=== PATIENT | male | born 1950 | race Caucasian/White ===

== ENCOUNTER 2017-01-26 18:24 | Inpatient (IN) | payer MEDICARE ==
[2017-01-26] MEDS ORDERED: KETOROLAC 30 MG/ML 1 ML VIAL IVP STA (18:54)
--- NOTE | 2017-01-26 18:58 | ED ---
General Adult HPI - General Chief complaint: Abdominal Pain Stated complaint: URQ pain Time Seen by Provider: 01/26/17 18:43 Source: patient Mode of arrival: ambulatory Limitations: no limitations - History of Present Illness Initial comments: This is a 66-year-old male with a history of gout and hypothyroidism and hyperlipidemia who presents here department for right-sided chest pain. He states is located right under his right pectoral area. He states it started when he woke up this morning. It has been constant and aching. It is made worse when he lays down or reclines. It's better when he sits up. Nothing else seems to make it better or worse. He has not tried anything for the pain area he denies any associated shortness of breath. The pain is not pleuritic in nature. No tearing. He does state that about a month ago he was treated with steroids and antibiotics for a chronic sinusitis that took quite some time to resolve. Otherwise denies any history of CAD or heart attack. Admits to abdominal bloating however no nausea or vomiting. No abdominal pain. No other complaint. - Related Data Home Medications Medication Instructions Recorded Confirmed Allopurinol [Zyloprim] 300 mg PO DAILY 01/02/16 01/26/17 Cholecalciferol [Vitamin D3] 5,000 unit PO Q7D 01/26/17 01/26/17 Levothyroxine Sodium [Synthroid] 25 mcg PO Q48H 01/26/17 01/26/17 Loratadine-Pseudoeph 5-120 mg 1 tab PO HS 01/26/17 01/26/17 [Claritin-D 12 HR] Metoprolol Tartrate [Lopressor] 25 mg PO BID 01/26/17 01/26/17 Multivitamins, Thera [Multivitamin 1 tab PO DAILY 01/26/17 01/26/17 (formulary)] Allergies Allergy/AdvReac Type Severity Reaction Status Date / Time Penicillins Allergy Unknown Verified 01/26/17 18:45 Childhood Sulfa (Sulfonamide Allergy Rash/Hives Verified 01/26/17 18:45 Antibiotics) Review of Systems ROS Statement: Those systems with pertinent positive or pertinent negative responses have been documented in the HPI. ROS Other: All systems not noted in ROS Statement are negative. Past Medical History Past Medical History: Deep Vein Thrombosis (DVT), Hyperlipidemia, Hypertension Additional Past Medical History / Comment(s): arrythmia, C diff History of Any Multi-Drug Resistant Organisms: None Reported Past Surgical History: Orthopedic Surgery, Tonsillectomy Additional Past Surgical History / Comment(s): left arthroscopy knee. quad tendon surgery right knee Past Psychological History: No Psychological Hx Reported Smoking Status: Former smoker Past Alcohol Use History: None Reported Past Drug Use History: None Reported General Exam - General Exam Comments Initial Comments: Constitutional: Awake alert Appears comfortable Head: Normocephalic atraumatic Eyes: no conjunctival injection No scleral icterus EOMI Neck: No JVD Supple Heart: Regular rate rhythm normal S1-S2 no murmurs Lungs: Clear to auscultation bilaterally No wheezing No rales, no tenderness to palpation along the chest wall Abdomen: Soft nondistended nontender Extremities: Non edematous DP pulses intact Radial pulses intact Neuro: A&Ox3 No focal neurologic deficits Psych: Appropriate mood and affect Limitations: no limitations Course Vital Signs 01/26/17 18:30 Temperature 97.8 F Pulse Rate 90 Respiratory 20 Rate Blood Pressure 138/93 O2 Sat by Pulse 98 Oximetry Medical Decision Making - Medical Decision Making This is a 58-year-old male presents emergency department for right-sided chest pain. He was found to have bilateral pulmonary embolisms. He does have a history of DVT however is not anticoagulated. The patient started on heparin drip. I put in for lower extremity Dopplers. I spoke with Dr. Liang who accepts the admission and would like Dr. Simeon on the case. The patient will be admitted. He is currently hemodynamically stable. No tachycardia or hypoxia. I feel that he is stable for the floor. We'll admit to the hospital. - Lab Data Result diagrams: 01/26/17 19:10 01/26/17 19:10 Lab Results 01/26/17 01/26/17 01/26/17 Range/Units 19:10 19:10 19:10 WBC (3.8-10.6) k/uL RBC (4.30-5.90) m/uL Hgb (13.0-17.5) gm/dL Hct (39.0-53.0) % MCV (80.0-100.0) fL MCH (25.0-35.0) pg MCHC (31.0-37.0) g/dL RDW (11.5-15.5) % Plt Count (150-450) k/uL Neutrophils % % Lymphocytes % % Monocytes % % Eosinophils % % Basophils % % Neutrophils # (1.3-7.7) k/uL Lymphocytes # (1.0-4.8) k/uL Monocytes # (0-1.0) k/uL Eosinophils # (0-0.7) k/uL Basophils # (0-0.2) k/uL PT 10.3 (9.0-12.0) sec INR 1.0 (<1.2) APTT 23.3 (22.0-30.0) sec D-Dimer 3.89 H (<0.60) mg/L FEU Sodium 141 (137-145) mmol/L Potassium 4.3 (3.5-5.1) mmol/L Chloride 101 (98-107) mmol/L Carbon Dioxide 28 (22-30) mmol/L Anion Gap 12 mmol/L BUN 18 (9-20) mg/dL Creatinine 0.90 (0.66-1.25) mg/dL Est GFR (MDRD) Af Amer >60 (>60 ml/min/1.73 sqM) Est GFR (MDRD) Non-Af >60 (>60 ml/min/1.73 sqM) Glucose 143 H (74-99) mg/dL Calcium 9.6 (8.4-10.2) mg/dL Total Bilirubin 0.7 (0.2-1.3) mg/dL AST 31 (17-59) U/L ALT 50 (21-72) U/L Alkaline Phosphatase 133 H (38-126) U/L CK-MB (CK-2) 0.9 (0.0-2.4) ng/mL Troponin I <0.012 (0.000-0.034) ng/mL Total Protein 7.1 (6.3-8.2) g/dL Albumin 3.9 (3.5-5.0) g/dL Amylase 93 (30-110) U/L Lipase 330 H (23-300) U/L 01/26/17 Range/Units 19:10 WBC 12.0 H (3.8-10.6) k/uL RBC 4.90 (4.30-5.90) m/uL Hgb 15.4 (13.0-17.5) gm/dL Hct 48.0 (39.0-53.0) % MCV 98.0 (80.0-100.0) fL MCH 31.5 (25.0-35.0) pg MCHC 32.1 (31.0-37.0) g/dL RDW 13.7 (11.5-15.5) % Plt Count 297 (150-450) k/uL Neutrophils % 75 % Lymphocytes % 14 % Monocytes % 5 % Eosinophils % 3 % Basophils % 1 % Neutrophils # 9.0 H (1.3-7.7) k/uL Lymphocytes # 1.7 (1.0-4.8) k/uL Monocytes # 0.6 (0-1.0) k/uL Eosinophils # 0.4 (0-0.7) k/uL Basophils # 0.1 (0-0.2) k/uL PT (9.0-12.0) sec INR (<1.2) APTT (22.0-30.0) sec D-Dimer (<0.60) mg/L FEU Sodium (137-145) mmol/L Potassium (3.5-5.1) mmol/L Chloride (98-107) mmol/L Carbon Dioxide (22-30) mmol/L Anion Gap mmol/L BUN (9-20) mg/dL Creatinine (0.66-1.25) mg/dL Est GFR (MDRD) Af Amer (>60 ml/min/1.73 sqM) Est GFR (MDRD) Non-Af (>60 ml/min/1.73 sqM) Glucose (74-99) mg/dL Calcium (8.4-10.2) mg/dL Total Bilirubin (0.2-1.3) mg/dL AST (17-59) U/L ALT (21-72) U/L Alkaline Phosphatase (38-126) U/L CK-MB (CK-2) (0.0-2.4) ng/mL Troponin I (0.000-0.034) ng/mL Total Protein (6.3-8.2) g/dL Albumin (3.5-5.0) g/dL Amylase (30-110) U/L Lipase (23-300) U/L Disposition Clinical Impression: Pulmonary embolism Disposition: ADMITTED IP TO THIS HOSP Condition: Stable
[2017-01-26 19:26] LABS: Basophils # (A) 0.1 k/uL (0-0.2); Basophils % (A) 1 %; CH 31.3; CHCM 32.1; Eosinophils # (A) 0.4 k/uL (0-0.7); Eosinophils % (A) 3 %; HGB 15.4 gm/dL (13.0-17.5); Luc # (Auto) 0.25; Luc % (Auto) 2; Lymphocytes # (A) 1.7 k/uL (1.0-4.8); Lymphocytes % (A) 14 %; MCH 31.5 pg (25.0-35.0); MCHC 32.1 g/dL (31.0-37.0); Mean Platelet Volume 7.3; Monocytes # (A) 0.6 k/uL (0-1.0); Monocytes % (A) 5 %; Neutrophils % (A) 75 %; RDW 13.7 % (11.5-15.5); WBC (Perox) 11.75
[2017-01-26 19:37] LABS: ALT 50 U/L (21-72); AST 31 U/L (17-59); Alkaline Phosphatase 133 U/L (38-126); Amylase 93 U/L (30-110); Anion Gap 12 mmol/L; Blood Urea Nitrogen 18 mg/dL (9-20); Calcium 9.6 mg/dL (8.4-10.2); Carbon Dioxide 28 mmol/L (22-30); Chloride 101 mmol/L (98-107); Glucose 143 mg/dL (74-99); Non-African American GFR(MDRD) >60 (>60 ml/min/1.73 sqM); Potassium 4.3 mmol/L (3.5-5.1); Sodium 141 mmol/L (137-145); Total Bilirubin 0.7 mg/dL (0.2-1.3); Total Protein 7.1 g/dL (6.3-8.2)
--- NOTE | 2017-01-26 19:38 | XR ---
EXAMINATION TYPE: XR chest 2V DATE OF EXAM: 01/26/2017 COMPARISON: NONE HISTORY: Chest pain TECHNIQUE: Frontal and lateral views of the chest are obtained. FINDINGS: Heart and mediastinum are normal. Lungs are clear. Diaphragm is normal. There is minor spu rring in the thoracic spine. IMPRESSION: No active cardiopulmonary disease.
[2017-01-26 19:53] LABS: Partial Thromboplastin Time 23.3 sec (22.0-30.0); Prothrombin Time 10.3 sec (9.0-12.0)
[2017-01-26] MEDS ORDERED: RX INFO: IV CONTRAST WAS GIVEN 1 EACH MISC MISCELLANE PRN (19:56)
[2017-01-26 20:05] LABS: Creatine Kinase MB 0.9 ng/mL (0.0-2.4); Troponin I <0.012 ng/mL (0.000-0.034)
[2017-01-26] MEDS ORDERED: HEPARIN SODIUM,PORCINE 5,000 UNIT/ML 1 ML VIAL IV ONE (20:37)
--- NOTE | 2017-01-26 20:38 | CT ---
EXAMINATION TYPE: CT angio chest DATE OF EXAM: 01/26/2017 8:26 PM COMPARISON: NONE HISTORY: RUQ pain. CT DLP: 886.2 mGycm Automated exposure control for dose reduction was used. CONTRAST: CTA scan of the thorax is performed with IV Contrast, patient injected with 75 mL of Omnipaque 350, p ulmonary embolism protocol. There are 3-D post processed images.. FINDINGS: The lungs are clear of consolidation. There is no evidence of a pulmonary mass. There is no evidence of aortic aneurysm or dissection. There is spurring in the thoracic spine. There is no evidence of pl eural effusion. There are small linear density at the left posterior lung base. There are small filling defects in both lower lobe pulmonary arteries. IMPRESSION: THERE ARE BILATERAL MULTIPLE SMALL LOWER LOBE PULMONARY EMBOLI. MINIMAL SUBSEGMENTAL ATELECTASIS IN THE LEFT LOWER LOBE. THIS EXAM WAS DISCUSSED WITH ER PHYSICIAN AT 8:30 PM.
[2017-01-26] MEDS ORDERED: NALOXONE 0.4 MG/ML 1 ML VIAL IV PRN (20:43)
[2017-01-26] MEDS ORDERED: ACETAMINOPHEN TAB 325 MG TAB PO PRN (20:43)
[2017-01-26] MEDS ORDERED: HEPARIN SODIUM,PORCINE/D5W PMX 25,000 UNIT in DEXTROSE/WATER 1 500ML.BAG IV SCH (20:45)
[2017-01-26] MEDS ORDERED: CHOLECALCIFEROL 1,000 UNIT TAB PO SCH (21:00)
[2017-01-26] MEDS ORDERED: LORATADINE-PSEUDOEPH 5-120 MG 1 EACH TAB.ER.12H PO SCH (21:00)
[2017-01-26] MEDS: METOPROLOL TARTRATE 25 MG TAB PO SCH (21:40)
[2017-01-27] MEDS ORDERED: HEPARIN SODIUM,PORCINE 5,000 UNIT/ML 1 ML VIAL IV STA (03:11)
[2017-01-27 07:37] VITALS: RESP 16
--- NOTE | 2017-01-27 08:34 | US ---
EXAMINATION TYPE: US venous doppler duplex LE DATE OF EXAM: 01/27/2017 8:18 AM COMPARISON: US 2016 & 2014 CLINICAL HISTORY: PE. PE, history of right leg DVT SIDE PERFORMED: Bilateral TECHNIQUE: The lower extremity deep venous system is examined utilizing real time linear array sonog lily with graded compression, doppler sonography and color-flow sonography. VESSELS IMAGED: External Iliac Vein (EIV) Common Femoral Vein Deep Femoral Vein Greater Saphenous Vein * Femoral Vein Popliteal Vein Small Saphenous Vein * Proximal Calf Veins (* superficial vessels) Right Leg: Appears negative for DVT Left Leg: Appears negative for DVT IMPRESSION: 1. No diagnostic evidence of DVT.
[2017-01-27] MEDS: METOPROLOL TARTRATE 25 MG TAB PO SCH (08:39)
[2017-01-27] MEDS ORDERED: ALLOPURINOL 300 MG TAB PO SCH (09:00)
[2017-01-27] MEDS ORDERED: RIVAROXABAN 15 MG TAB PO SCH (11:30)
--- NOTE | 2017-01-27 11:52 | P.HPIM ---
History of Present Illness 60-year-old male with history of DVT in the past couple times, came in with complaints of chest pain pleuritic in nature patient underwent CT angios the chest which did show bilateral pulmonary embolism without any DVT in the bilateral lower limbs. Patient was started on heparin was admitted. Patient the past did try Xarelto, patient will be given same prescription patient denied any short of breath and patient denied any tachycardia patient is on metoprolol as a long-term medication. Patient in the past had DVT after surgeries. Patient about couple months ago had some kind of vein surgery. Patient has been ablating lately and the patient's symptoms started yesterday. Patient is up-to-date with his cancer screening procedures. We will verify his insurance regarding new anticoagulant medication in and the patient is approved for those patient will be discharged on your medications meantime will start him on new anticoagulants and this can you heparin if patient vitals are stable upon ambulation and patient doesn't become tachycardic without any chest pain or any other symptoms patient will be discharged today on new anticoagulants. Review of Systems REVIEW OF SYSTEMS: CONSTITUTIONAL: No fever, no malaise, no fatigue. HEENT: No recent visual problems or hearing problems. Denied any sore throat. CARDIOVASCULAR: No orthopnea, PND, no palpitations, no syncope. PULMONARY: No shortness of breath, no cough, no hemoptysis. GASTROINTESTINAL: No diarrhea, no nausea, no vomiting, no abdominal pain. Normoactive bowel sounds. NEUROLOGICAL: No headaches, no weakness, no numbness. HEMATOLOGICAL: Denies any bleeding or petechiae. GENITOURINARY: Denies any burning micturition, frequency, or urgency. MUSCULOSKELETAL/RHEUMATOLOGICAL: Denies any joint pain, swelling, or any muscle pain. ENDOCRINE: Denies any polyuria or polydipsia. The rest of the 14-point review of systems is negative. Past Medical History Past Medical History: Deep Vein Thrombosis (DVT), Hyperlipidemia, Hypertension Additional Past Medical History / Comment(s): arrythmia; C diff 2014, not hospital acquired History of Any Multi-Drug Resistant Organisms: None Reported Past Surgical History: Orthopedic Surgery, Tonsillectomy Additional Past Surgical History / Comment(s): left arthroscopy knee. quad tendon surgery right knee Past Anesthesia/Blood Transfusion Reactions: No Reported Reaction Past Psychological History: No Psychological Hx Reported Smoking Status: Former smoker Past Alcohol Use History: None Reported Past Drug Use History: None Reported - Past Family History Father Family Medical History: Renal Disease Additional Family Medical History / Comment(s): Father from kidney failure , lung problems Mother Family Medical History: Myocardial Infarction ([place]) Additional Family Medical History / Comment(s): Mother and siblings had heart attacks, mom from Alzheimers complications Medications and Allergies Home Medications Medication Instructions Recorded Confirmed Type Allopurinol [Zyloprim] 300 mg PO DAILY 01/02/16 01/26/17 History Cholecalciferol [Vitamin D3] 5,000 unit PO Q7D 01/26/17 01/26/17 History Levothyroxine Sodium [Synthroid] 25 mcg PO Q48H 01/26/17 01/26/17 History Loratadine-Pseudoeph 5-120 mg 1 tab PO HS 01/26/17 01/26/17 History [Claritin-D 12 HR] Metoprolol Tartrate [Lopressor] 25 mg PO BID 01/26/17 01/26/17 History Multivitamins, Thera [Multivitamin 1 tab PO DAILY 01/26/17 01/26/17 History (formulary)] Rivaroxaban [Xarelto] 15 mg PO BID #42 tab 01/27/17 Rx Allergies Allergy/AdvReac Type Severity Reaction Status Date / Time Penicillins Allergy Unknown Verified 01/26/17 18:45 Childhood Sulfa (Sulfonamide Allergy Rash/Hives Verified 01/26/17 18:45 Antibiotics) Physical Exam Vitals: Vital Signs Temp Pulse Pulse Resp BP BP BP 01/27/17 07:00 97.2 F L 82 16 132/70 01/26/17 23:00 96.4 F L 74 18 154/67 01/26/17 22:13 98.1 F 86 18 163/75 01/26/17 18:30 97.8 F 90 20 138/93 Pulse Ox 01/27/17 07:00 93 L 01/26/17 23:00 93 L 01/26/17 22:13 96 01/26/17 18:30 98 Intake and Output 01/26/17 01/27/17 01/27/17 22:59 06:59 14:59 Intake Total 555.377 190.148 Output Total 350 Balance 205.377 190.148 Intake: Intake, IV Titration 105.377 190.148 Amount Heparin Sodium,Porcine/ 105.377 190.148 D5w Pmx 25,000 unit In Dextrose/Water 1 500ml. bag @ 7.6 UNITS/KG/HR 20. 2 mls/hr IV .Q24H [facility] Rx# :[id number] Oral 450 Output: Urine 350 Other: Voiding Method Toilet Bedside Commode Urinal # Voids 0 # Bowel Movements 0 Weight 132.903 kg PHYSICAL EXAMINATION: GENERAL: The patient is alert and oriented x3, not in any acute distress. Obese HEENT: Pupils are round and equally reacting to light. EOMI. No scleral icterus. No conjunctival pallor. Normocephalic, atraumatic. No pharyngeal erythema. No thyromegaly. CARDIOVASCULAR: S1 and S2 present. No murmurs, rubs, or gallops. PULMONARY: Chest is clear to auscultation, no wheezing or crackles. ABDOMEN: Soft, nontender, nondistended, normoactive bowel sounds. No palpable organomegaly. MUSCULOSKELETAL: No joint swelling or deformity. EXTREMITIES: No cyanosis, clubbing, or pedal edema. NEUROLOGICAL: Gross neurological examination did not reveal any focal deficits. SKIN: No rashes. Results CBC & Chem 7: 01/26/17 19:10 01/26/17 19:10 Labs: Abnormal Lab Results - Last 24 Hours (Table) 01/26/17 01/26/17 01/26/17 Range/Units 19:10 19:10 19:10 WBC 12.0 H (3.8-10.6) k/uL Neutrophils # 9.0 H (1.3-7.7) k/uL APTT (22.0-30.0) sec D-Dimer 3.89 H (<0.60) mg/L FEU Glucose 143 H (74-99) mg/dL Alkaline Phosphatase 133 H (38-126) U/L Lipase 330 H (23-300) U/L 01/27/17 01/27/17 Range/Units 02:22 08:35 WBC (3.8-10.6) k/uL Neutrophils # (1.3-7.7) k/uL APTT 35.0 H 55.4 H (22.0-30.0) sec D-Dimer (<0.60) mg/L FEU Glucose (74-99) mg/dL Alkaline Phosphatase (38-126) U/L Lipase (23-300) U/L Thrombosis Risk Factor Assmnt - Choose All That Apply Any of the Below Risk Factors Present?: Yes Each Factor Represents 1 point: Obesity (BMI >25), Swollen legs (current) Other Risk Factors: Yes Each Risk Factor Represents 2 Points: Age 61-74 years Each Risk Factor Represents 3 Points: History of DVT/PE Thrombosis Risk Factor Assessment Total Risk Factor Score: 7 Thrombosis Risk Factor Assessment Level: High Risk Assessment and Plan Plan: #1 bilateral pulmonary embolism: Management as mentioned in the history itself. Patient need to be on lifelong anticoagulation considering his third PE and no clear-cut precipitating fitting factor except for obesity #2 morbid obesity contributing to his PE. #3 hyperlipidemia #4 Hypertension
--- NOTE | 2017-01-27 11:53 | P.DS ---
Providers Date of admission: 01/26/17 20:46 Attending physician: Misael Liang Consults: 01/26/17 20:37 Consult Physician Routine Consulting Provider: Loraine Dickerson Consult Reason/Comments: PE Do you want consulting provider notified?: Yes, Notify in am Primary care physician: Tahmina Calvo [place] [facility] Course: Please refer to my HPI Patient Condition at Discharge: Stable Plan - Discharge Summary New Discharge Prescriptions: New Rivaroxaban [Xarelto] 15 mg PO BID #42 tab No Action Allopurinol [Zyloprim] 300 mg PO DAILY Multivitamins, Thera [Multivitamin (formulary)] 1 tab PO DAILY Levothyroxine Sodium [Synthroid] 25 mcg PO Q48H Metoprolol Tartrate [Lopressor] 25 mg PO BID Loratadine-Pseudoeph 5-120 mg [Claritin-D 12 HR] 1 tab PO HS Cholecalciferol [Vitamin D3] 5,000 unit PO Q7D Discharge Medication List Allopurinol [Zyloprim] 300 mg PO DAILY 01/02/16 [History] Cholecalciferol [Vitamin D3] 5,000 unit PO Q7D 01/26/17 [History] Levothyroxine Sodium [Synthroid] 25 mcg PO Q48H 01/26/17 [History] Loratadine-Pseudoeph 5-120 mg [Claritin-D 12 HR] 1 tab PO HS 01/26/17 [History] Metoprolol Tartrate [Lopressor] 25 mg PO BID 01/26/17 [History] Multivitamins, Thera [Multivitamin (formulary)] 1 tab PO DAILY 01/26/17 [History ] Rivaroxaban [Xarelto] 15 mg PO BID #42 tab 01/27/17 [Rx] Follow up Appointment(s)/Referral(s): Tahmina Calvo MD [Primary Care Provider] - 3 Days Discharge Disposition: HOME SELF-CARE
[2017-01-27] MEDS ORDERED: MULTIVITAMINS, THERA 1 EACH TAB PO SCH (12:00)
[2017-01-27 15:00] VITALS: BP 145/76; PULSE 75; TEMP 97.4
--- NOTE | 2017-01-27 15:22 | P.CNPUL ---
History of Present Illness Consult date: 01/27/17 Requesting physician: Alton Judge Reason for consult: chest pain Chief complaint: Right sided chest pain, pulmonary embolism History of present illness: This is a 66-year-old white male that presented to the emergency department last night with complaints of right-sided chest pain worse when lying down. His symptoms started sometime during the day yesterday. She denies having increased shortness of breath, chest congestion, wheezing or hemoptysis. His pain was very localized under his right pectoral area. It was improved with sitting upright. Denies worsening of his pain with inspiration. He reports past medical history of DVTs twice in the past for which he was treated with Xarelto, however currently not on any form of anticoagulation. His previous episodes of DVT and then after surgeries. Most recently patient had some type of vein ablation for chronic venous insufficiency with a specialist from [place]. CTA chest from 01/26/2017 showed evidence of multiple bilateral small lower lobe pulmonary emboli and minimal subsegmental atelectasis in the left lower lobe. Venous Doppler study from 01/27/2017 is negative for evidence. Patient is alert, awake, in no apparent distress. Lung sounds are clear, diminished at the bases. Hemodynamically stable, on room air maintaining saturations between 93-96%. Patient had been started on heparin drip. Patient can be started on Xarelto, and discharged home. He was counseled about having to stay on Xarelto for the rest of his life related to recurrent thromboembolic events. Review of Systems Constitutional: Denies chills, Denies fever Eyes: denies blurred vision, denies pain Ears, nose, mouth and throat: Denies headache, Denies sore throat Cardiovascular: Denies chest pain, Denies shortness of breath Respiratory: Reports pain, Denies cough Gastrointestinal: Denies abdominal pain, Denies diarrhea, Denies nausea, Denies vomiting Musculoskeletal: Denies myalgias Integumentary: Denies pruritus, Denies rash Neurological: Denies numbness, Denies weakness Psychiatric: Denies anxiety, Denies depression Endocrine: Denies fatigue, Denies weight change Past Medical History Past Medical History: No Reported History, Deep Vein Thrombosis (DVT), Hyperlipidemia, Hypertension Additional Past Medical History / Comment(s): arrythmia; C diff 2014, not hospital acquired History of Any Multi-Drug Resistant Organisms: None Reported Past Surgical History: Orthopedic Surgery, Tonsillectomy Additional Past Surgical History / Comment(s): left arthroscopy knee. quad tendon surgery right knee Past Anesthesia/Blood Transfusion Reactions: No Reported Reaction Past Psychological History: No Psychological Hx Reported Smoking Status: Former smoker Past Alcohol Use History: None Reported Past Drug Use History: None Reported - Past Family History Father Family Medical History: Renal Disease Additional Family Medical History / Comment(s): Father from kidney failure , lung problems Mother Family Medical History: Myocardial Infarction ([place]) Additional Family Medical History / Comment(s): Mother and siblings had heart attacks, mom from Alzheimers complications Medications and Allergies Home Medications Medication Instructions Recorded Confirmed Type Allopurinol [Zyloprim] 300 mg PO DAILY 01/02/16 01/26/17 History Cholecalciferol [Vitamin D3] 5,000 unit PO Q7D 01/26/17 01/26/17 History Levothyroxine Sodium [Synthroid] 25 mcg PO Q48H 01/26/17 01/26/17 History Loratadine-Pseudoeph 5-120 mg 1 tab PO HS 01/26/17 01/26/17 History [Claritin-D 12 HR] Metoprolol Tartrate [Lopressor] 25 mg PO BID 01/26/17 01/26/17 History Multivitamins, Thera [Multivitamin 1 tab PO DAILY 01/26/17 01/26/17 History (formulary)] Rivaroxaban [Xarelto] 15 mg PO BID #42 tab 01/27/17 Rx Allergies Allergy/AdvReac Type Severity Reaction Status Date / Time Penicillins Allergy Unknown Verified 01/26/17 18:45 Childhood Sulfa (Sulfonamide Allergy Rash/Hives Verified 01/26/17 18:45 Antibiotics) Physical Exam Vitals: Vital Signs Temp Pulse Pulse Resp BP BP BP 01/27/17 07:00 97.2 F L 82 16 132/70 01/26/17 23:00 96.4 F L 74 18 154/67 01/26/17 22:13 98.1 F 86 18 163/75 01/26/17 18:30 97.8 F 90 20 138/93 Pulse Ox 01/27/17 07:00 93 L 01/26/17 23:00 93 L 09/28/17 22:13 96 01/26/17 18:30 98 Intake and Output 01/26/17 01/27/17 01/27/17 22:59 06:59 14:59 Intake Total 555.377 190.148 Output Total 350 Balance 205.377 190.148 Intake: Intake, IV Titration 105.377 190.148 Amount Heparin Sodium,Porcine/ 105.377 190.148 D5w Pmx 25,000 unit In Dextrose/Water 1 500ml. bag @ 7.6 UNITS/KG/HR 20. 2 mls/hr IV .Q24H [facility] Rx# :[id number] Oral 450 Output: Urine 350 Other: Voiding Method Toilet Bedside Commode Urinal # Voids 0 # Bowel Movements 0 Weight 132.903 kg - Constitutional General appearance: cooperative, no acute distress, obese - EENT Eyes: EOMI, PERRLA, normal appearance ENT: NA/AT, normal oropharynx - Neck Neck: no lymphadenopathy Carotids: bilateral: upstroke normal Thyroid: bilateral: normal size - Respiratory Respiratory: bilateral: diminished - Cardiovascular Rhythm: regular Heart sounds: normal: S1, S2 leg Peripheral Edema: right: 2+, left: 1+ dorsalis pedis Peripheral Pulses: bilateral: Normal radial pulse Peripheral Pulses: bilateral: Normal - Gastrointestinal General gastrointestinal: no organomegaly, soft, no tenderness - Integumentary Integumentary: normal turgor - Neurologic Neurologic: CNII-XII intact - Musculoskeletal Musculoskeletal: gait normal, strength equal bilaterally - Psychiatric Psychiatric: A&O x's 3, appropriate affect, intact judgment & insight Results - Laboratory Findings CBC and BMP: 01/26/17 19:10 01/26/17 19:10 PT/INR, D-dimer PT 10.3 sec (9.0-12.0) 01/26/17 19:10 INR 1.0 (<1.2) 01/26/17 19:10 D-Dimer 3.89 mg/L FEU (<0.60) H 01/26/17 19:10 Abnormal lab findings: Abnormal Labs 01/26/17 01/26/17 01/26/17 19:10 19:10 19:10 WBC 12.0 H Neutrophils # 9.0 H APTT D-Dimer 3.89 H Glucose 143 H Alkaline Phosphatase 133 H Lipase 330 H 01/27/17 01/27/17 02:22 08:35 WBC Neutrophils # APTT 35.0 H 55.4 H D-Dimer Glucose Alkaline Phosphatase Lipase - Diagnostic Findings Chest x-ray: report reviewed CT scan - chest: report reviewed U/S of Legs: report reviewed Assessment and Plan Plan: Assessment: #1. Acute bilateral pulmonary embolism. #2. History of DVTs 2 in the past after surgical procedures, had been on Xarelto #3. Morbid obesity. #4. Chronic venous insufficiency, history of venous ablation surgery #5. #5. Hyperlipidemia #6. Hypertension #7. Nicotine dependence currently in remission #8. History of arrhythmia #9. History of C. diff, not hospital-acquired #10. History of left knee arthroscopy Plan: We'll check with discharge planning whether patient's insurance will cover Xarelto. Heparin drip can be discontinued once the Xarelto started. Patient was explained the need for lifelong anticoagulation in view of recurrent episodes of thromboembolic events. Patient may be discharged home today or tomorrow. Follow-up with Dr. Dickerson in the office in one week. I performed a history & physical examination of the patient and discussed their management with my nurse practitioner, Georgia Jaimes. I reviewed the nurse practitioner's note and agree with the documented findings and plan of care.
[2017-01-28] MEDS ORDERED: LEVOTHYROXINE 25 MCG TAB PO SCH (06:30)
== END 2017-01-27 15:03 | disposition home or self-care (01) | DRG 176 ==
LOC: EC 18:24 → 4MS4W 20:46
PROVIDERS: ADMIT Hospitalist; ATTEND Hospitalist
DX: I26.99 Other pulmonary embolism without acute cor pulmonale (principal); J98.11 Atelectasis; E66.01 Morbid (severe) obesity due to excess calories; I10 Essential (primary) hypertension; E03.9 Hypothyroidism, unspecified; E78.5 Hyperlipidemia, unspecified; I87.2 Venous insufficiency (chronic) (peripheral); M10.9 Gout, unspecified; F17.201 Nicotine dependence, unspecified, in remission; Z79.01 Long term (current) use of anticoagulants; Z79.899 Other long term (current) drug therapy; Z88.0 Allergy status to penicillin; Z88.2 Allergy status to sulfonamides; Z86.718 Personal history of other venous thrombosis and embolism; Z82.49 Family history of ischemic heart disease and other diseases of the circulatory system
CPT/HCPCS: 36415; 71020; 71275; 80053; 82150; 82553; 83690; 84484; 85025; 85379; 85610; 85730; 93005; 93970; 96374; 96375; 99285

== ENCOUNTER 2017-08-09 21:31 | Emergency (ER) | payer MEDICARE ==
[2017-08-09 21:37] VITALS: RESP 18
[2017-08-09] MEDS ORDERED: diphenhydrAMINE 50 MG/ML 1 ML VIAL IVP STA (23:02)
[2017-08-09] MEDS ORDERED: SODIUM CHLORIDE 0.9% 1,000 ML IV STA (23:02)
[2017-08-09] MEDS ORDERED: METOCLOPRAMIDE 5 MG/ML 2 ML VIAL IVP STA (23:02)
[2017-08-09] MEDS ORDERED: RX INFO: IV CONTRAST WAS GIVEN 1 EACH MISC MISCELLANE PRN (23:02)
[2017-08-09 23:31] LABS: Basophils # (A) 0.1 k/uL (0-0.2); Basophils % (A) 1 %; Eosinophils # (A) 0.3 k/uL (0-0.7); Eosinophils % (A) 4 %; HCT 45.7 % (39.0-53.0); HGB 14.9 gm/dL (13.0-17.5); Lymphocytes # (A) 1.9 k/uL (1.0-4.8); Lymphocytes % (A) 22 %; MCH 30.8 pg (25.0-35.0); MCHC 32.5 g/dL (31.0-37.0); MCV 94.6 fL (80.0-100.0); Mean Platelet Volume 7.6; Monocytes # (A) 0.6 k/uL (0-1.0); Monocytes % (A) 7 %; Neutrophils # (A) 5.5 k/uL (1.3-7.7); Neutrophils % (A) 65 %; Platelet Count 303 k/uL (150-450); RBC 4.83 m/uL (4.30-5.90); RDW 13.4 % (11.5-15.5); WBC 8.5 k/uL (3.8-10.6)
[2017-08-09 23:40] LABS: ALT 64 U/L (21-72); AST 52 U/L (17-59); Albumin 3.8 g/dL (3.5-5.0); Alkaline Phosphatase 122 U/L (38-126); Anion Gap 13 mmol/L; Blood Urea Nitrogen 24 mg/dL (9-20); Calcium 9.1 mg/dL (8.4-10.2); Carbon Dioxide 25 mmol/L (22-30); Chloride 105 mmol/L (98-107); Glucose 222 mg/dL (74-99); Potassium 4.1 mmol/L (3.5-5.1); Sodium 143 mmol/L (137-145); Total Bilirubin 0.4 mg/dL (0.2-1.3); Total Protein 6.9 g/dL (6.3-8.2)
--- NOTE | 2017-08-09 23:51 | ED ---
General Adult HPI - General Chief complaint: Headache Stated complaint: rt side head pain Time Seen by Provider: 08/09/17 22:21 Source: patient, RN notes reviewed Mode of arrival: ambulatory Limitations: no limitations - History of Present Illness Initial comments: This is a 67-year-old male who presents to the emergency department with chief complaint of right sided facial and head pain. Patient states that the right- sided head pain began yesterday. He presented to his dentist this morning as he thought the pain stemmed from dental issues. His dentist evaluated him and performed x-rays. No abnormalities were found. Patient states that the pain is intermittent and sharp in nature. He states that each episode lasts approximately 5 minutes. He states that the majority of the pain is along his right jaw and sometimes radiates to his teeth, right cheek and right eye. He does admit him to having a baseline right-sided headache as well. He states that he has been taking Aleve, his last dose at 8 PM tonight. Denies fever, chills, chest pain, shortness of breath, abdominal pain, nausea or vomiting, constipation or diarrhea, dysuria or hematuria, numbness or tingling, headache or vision changes. - Related Data Home Medications Medication Instructions Recorded Confirmed Allopurinol [Zyloprim] 300 mg PO DAILY 01/02/16 08/09/17 Loratadine-Pseudoeph 5-120 mg 1 tab PO HS 01/26/17 08/09/17 [Claritin-D 12 HR] Metoprolol Tartrate [Lopressor] 25 mg PO BID 01/26/17 08/09/17 Atorvastatin [Lipitor] 40 mg PO HS 08/09/17 08/09/17 Rivaroxaban [Xarelto] 20 mg PO DAILY 08/09/17 08/09/17 Allergies Allergy/AdvReac Type Severity Reaction Status Date / Time Penicillins Allergy Unknown Verified 08/09/17 22:13 Childhood Sulfa (Sulfonamide Allergy Rash/Hives Verified 08/09/17 22:13 Antibiotics) Review of Systems ROS Statement: Those systems with pertinent positive or pertinent negative responses have been documented in the HPI. ROS Other: All systems not noted in ROS Statement are negative. Past Medical History Past Medical History: No Reported History, Deep Vein Thrombosis (DVT), Hyperlipidemia, Hypertension Additional Past Medical History / Comment(s): arrythmia; C diff 2014, not hospital acquired History of Any Multi-Drug Resistant Organisms: None Reported Past Surgical History: Orthopedic Surgery, Tonsillectomy Additional Past Surgical History / Comment(s): left arthroscopy knee. quad tendon surgery right knee Past Anesthesia/Blood Transfusion Reactions: No Reported Reaction Past Psychological History: No Psychological Hx Reported Smoking Status: Former smoker Past Alcohol Use History: None Reported Past Drug Use History: None Reported - Past Family History Father Family Medical History: Renal Disease Additional Family Medical History / Comment(s): Father from kidney failure , lung problems Mother Family Medical History: Myocardial Infarction ([place]) Additional Family Medical History / Comment(s): Mother and siblings had heart attacks, mom from Alzheimers complications General Exam - General Exam Comments Initial Comments: General: Awake and alert, well-developed; in no apparent distress. HEENT: Head atraumatic, normocephalic. Pupils are equal, round and reactive to light. Extraocular movements intact. Oropharynx moist without erythema or exudate. Bilateral TMs are pearly without effusion. No tenderness on palpation of right jawline or temporal region. Neck: Supple. Normal ROM. No lymphadenopathy. No carotid bruits bilaterally. Cardiovascular: Regular rate and rhythm. No murmurs, rubs or gallops. Chest symmetrical. Respiratory: Lungs clear to auscultation bilaterally. No wheezes, rales or rhonchi. Normal respiratory effort with no use of accessory muscles. Musculoskeletal: Normal ROM, no tenderness bilateral upper and lower extremities. Ambulating normally. Skin: [place], warm and dry without rashes or lesions. Neurological: Alert and oriented x3. CN II-XII grossly intact. Speech is fluent and answers are appropriate. No focal neuro deficits. Psychiatric: Normal mood and affect. No overt signs of depression or anxiety noted. Limitations: no limitations Course Vital Signs 08/09/17 08/10/17 21:35 00:34 Temperature 98.9 F 97.8 F Pulse Rate 92 69 Respiratory 18 18 Rate Blood Pressure 174/93 163/82 O2 Sat by Pulse 95 96 Oximetry Medical Decision Making - Medical Decision Making 67-year-old male who presents to the emergency department chief complaint of right-sided head/facial pain since yesterday. Patient reports that the pain is sharp in nature and is intermittent. Pain radiates across the jawline and right side of face. CT brain revealed no acute abnormalities. CT of neck and head reveal no acute abnormalities. No tenderness on palpation of jawline or temporal region. ESR is 26, essentially ruling out temporal arteritis. Patient 's vital signs are stable and he is in no acute distress. This case was discussed with attending physician, Dr. Benton. Patient will be discharged home with a Tylenol with Codeine starter pack for pain. He already has a follow-up appointment scheduled for this morning with his primary care provider. Recommended following up as scheduled. Patient is in agreement with plan and voices understanding. All questions were answered. - Lab Data Result diagrams: 08/09/17 23:14 08/09/17 23:14 Lab Results 08/09/17 08/09/17 Range/Units 23:14 23:14 WBC 8.5 (3.8-10.6) k/uL RBC 4.83 (4.30-5.90) m/uL Hgb 14.9 (13.0-17.5) gm/dL Hct 45.7 (39.0-53.0) % MCV 94.6 (80.0-100.0) fL MCH 30.8 (25.0-35.0) pg MCHC 32.5 (31.0-37.0) g/dL RDW 13.4 (11.5-15.5) % Plt Count 303 (150-450) k/uL Neutrophils % 65 % Lymphocytes % 22 % Monocytes % 7 % Eosinophils % 4 % Basophils % 1 % Neutrophils # 5.5 (1.3-7.7) k/uL Lymphocytes # 1.9 (1.0-4.8) k/uL Monocytes # 0.6 (0-1.0) k/uL Eosinophils # 0.3 (0-0.7) k/uL Basophils # 0.1 (0-0.2) k/uL ESR 26 H (0-15) mm/hr Sodium 143 (137-145) mmol/L Potassium 4.1 (3.5-5.1) mmol/L Chloride 105 (98-107) mmol/L Carbon Dioxide 25 (22-30) mmol/L Anion Gap 13 mmol/L BUN 24 H (9-20) mg/dL Creatinine 0.90 (0.66-1.25) mg/dL Est GFR (CKD-EPI)AfAm >90 (>60 ml/min/1.73 sqM) Est GFR (CKD-EPI)NonAf 87 (>60 ml/min/1.73 sqM) Glucose 222 H (74-99) mg/dL Calcium 9.1 (8.4-10.2) mg/dL Total Bilirubin 0.4 (0.2-1.3) mg/dL AST 52 (17-59) U/L ALT 64 (21-72) U/L Alkaline Phosphatase 122 (38-126) U/L Total Protein 6.9 (6.3-8.2) g/dL Albumin 3.8 (3.5-5.0) g/dL - Radiology Data Radiology results: report reviewed CT brain without contrast impression: Normal head/brain CT. CT angiogram head with IV contrast impression: Normal head CTA. CT angiogram neck with IV contrast impression: Normal neck CTA. Disposition Clinical Impression: Facial neuralgia Disposition: HOME SELF-CARE Condition: Good Instructions: Trigeminal Neuralgia (ED), Acute Headache (ED) Additional Instructions: Please take medications as prescribed. Please follow up with primary care provider within 1-2 days. Return to emergency department if symptoms should worsen or any concerns arise. Referrals: Tahmina Calvo MD [Primary Care Provider] - 1-2 days Time of Disposition: 01:04
[2017-08-10 00:21] LABS: Erythrocyte Sedimentation Rate 26 mm/hr (0-15)
--- NOTE | 2017-08-10 00:31 | CT ---
EXAM: CT Head Without Intravenous Contrast CLINICAL HISTORY: pain TECHNIQUE: Axial computed tomography images of the head/brain without intravenous contrast. CTDI is 60.3 mGy and DLP is 1140.4 mGy-cm. This CT exam was performed using one or more of the following dose reduction techniques: automated exposure control, adjustment of the mA and/or kV according to patient size, and/or use of iterative reconstruction technique. COMPARISON: No relevant prior studies available. FINDINGS: Brain: Unremarkable. No hemorrhage. No significant white matter disease. No edema. Ventricles: Unremarkable. No ventriculomegaly. Bones/joints: Unremarkable. No acute fracture. Soft tissues: Unremarkable. Sinuses: Unremarkable as visualized. No acute sinusitis. Mastoid air cells: Unremarkable as visualized. No mastoid effusion. IMPRESSION: Normal head/brain CT.
[2017-08-10 00:36] VITALS: BP 163/82; PULSE 69; TEMP 97.8
--- NOTE | 2017-08-10 00:41 | CT ---
EXAM: CT Angiography Head With Intravenous Contrast CLINICAL HISTORY: Pain TECHNIQUE: Axial computed tomographic angiography images of the head with intravenous contrast using CT angiography protocol. DLP is 1140.0 mGy- cm. This CT exam was performed using one or more of the following dose reduction techniques: automated exposure control, adjustment of the mA and/or kV according to patient size, and/or use of iterative reconstruction technique. MIP reconstructed images were created and reviewed. Coronal and sagittal reformatted images were created and reviewed. COMPARISON: No relevant prior studies available. FINDINGS: Normal appearance the anterior and posterior circulation. Normal appearance to the left and right middle cerebral artery, left and right anterior cerebral artery as well as left and right posterior cerebral arteries. There appears to be patent bilateral posterior communicating arteries. IMPRESSION: Normal head CTA. EXAM: CT Angiography Neck With Intravenous Contrast CLINICAL HISTORY: Pain TECHNIQUE: Axial computed tomographic angiography images of the neck with intravenous contrast using CT angiography protocol. DLP is 1140.0 mGy- cm. This CT exam was performed using one or more of the following dose reduction techniques: automated exposure control, adjustment of the mA and/or kV according to patient size, and/or use of iterative reconstruction technique. MIP reconstructed images were created and reviewed. Coronal and sagittal reformatted images were created and reviewed. COMPARISON: No relevant prior studies available. FINDINGS: VASCULATURE: Right common carotid artery: Unremarkable. No significant stenosis. No dissection or occlusion. Right internal carotid artery: Unremarkable. Extracranial segment is patent with no significant stenosis. No dissection or occlusion. Right external carotid artery: Unremarkable. No occlusion. Right vertebral artery: Unremarkable. No significant stenosis. No dissection or occlusion. Left common carotid artery: Unremarkable. No significant stenosis. No dissection or occlusion. Left internal carotid artery: Unremarkable. Extracranial segment is patent with no significant stenosis. No dissection or occlusion. Left external carotid artery: Unremarkable. No occlusion. Left vertebral artery: Unremarkable. No significant stenosis. No dissection or occlusion. NECK: Bones/joints: No acute fracture. No dislocation. Soft tissues: Unremarkable as visualized. No mass. CAROTID STENOSIS REFERENCE USING NASCET CRITERIA: % ICA stenosis = (1 - narrowest ICA diameter/diameter of distal cervical ICA) x 100. Mild - <50% stenosis. Moderate - 50-69% stenosis. Severe - 70-94% stenosis. Near occlusion - 95-99% stenosis. Occluded - 100% stenosis. IMPRESSION: Normal neck CTA.
[2017-08-10] MEDS ORDERED: ACET/COD 300 MG/30 MG STARTER PACK 6 TAB BTL PO STA (01:04)
== END 2017-08-10 01:18 | disposition home or self-care (01) ==
LOC: EC 21:31
DX: G58.8 Other specified mononeuropathies (principal); E78.5 Hyperlipidemia, unspecified; I10 Essential (primary) hypertension; Z86.718 Personal history of other venous thrombosis and embolism; Z87.891 Personal history of nicotine dependence; Z79.01 Long term (current) use of anticoagulants; Z79.899 Other long term (current) drug therapy; Z88.0 Allergy status to penicillin; Z88.2 Allergy status to sulfonamides
CPT/HCPCS: 36415; 80053; 85652; 85025; 70496; 70450; 70498; 99284; 96374; 96375; 96361 ×2; J1200; J2765; Q9967

== ENCOUNTER 2019-02-27 07:08 | Emergency (ER) | payer MEDICARE ==
[2019-02-27 07:21] VITALS: TEMP 97.9
[2019-02-27] MEDS ORDERED: SODIUM CHLORIDE 0.9% 1,000 ML IV STA (07:31)
[2019-02-27] MEDS ORDERED: MORPHINE SULFATE 4 MG/ML SYRINGE IV STA (07:31)
--- NOTE | 2019-02-27 07:35 | ED ---
General Adult HPI - General Chief complaint: Abdominal Pain Stated complaint: Abdominal pain Time Seen by Provider: 02/27/19 07:23 Source: patient, RN notes reviewed Mode of arrival: ambulatory Limitations: no limitations - History of Present Illness Initial comments: Patient is a pleasant 68-year-old male presenting to the emergency Department with complaints of left-sided abdominal discomfort. Onset of symptoms was just a couple of days ago. Patient states discomfort starts left posterior flank however also is the left lower abdomen. Patient does have history of similar symptoms previously associated with diverticulitis. Symptoms are somewhat worsened with sitting. Discomfort is rated 6/10. No associated nausea vomiting. patient diarrhea. Movement does not necessarily make symptoms worse. No fevers. - Related Data Home Medications Medication Instructions Recorded Confirmed Allopurinol [Zyloprim] 300 mg PO DAILY 01/02/16 02/27/19 Metoprolol Tartrate [Lopressor] 25 mg PO BID 01/26/17 02/27/19 Atorvastatin [Lipitor] 40 mg PO HS 08/09/17 02/27/19 Levothyroxine Sodium [Synthroid] 50 mcg PO DAILY 02/27/19 02/27/19 Loratadine-Pseudoeph 5-120 mg 1 tab PO HS 02/27/19 02/27/19 [Claritin-D 12 Hour] Multivitamins, Thera [Multivitamin 1 tab PO DAILY 02/27/19 02/27/19 (formulary)] Allergies Allergy/AdvReac Type Severity Reaction Status Date / Time Penicillins Allergy Unknown Verified 02/27/19 07:42 Childhood Sulfa (Sulfonamide Allergy Rash/Hives Verified 02/27/19 07:42 Antibiotics) Review of Systems ROS Statement: Those systems with pertinent positive or pertinent negative responses have been documented in the HPI. ROS Other: All systems not noted in ROS Statement are negative. Constitutional: Denies: fever Eyes: Denies: eye pain ENT: Denies: ear pain Respiratory: Denies: cough Cardiovascular: Denies: chest pain Endocrine: Denies: fatigue Gastrointestinal: Reports: abdominal pain. Denies: nausea, vomiting, diarrhea Genitourinary: Denies: dysuria Musculoskeletal: Reports: back pain (Posterior left flank) Skin: Denies: rash Neurological: Denies: weakness Past Medical History Past Medical History: Deep Vein Thrombosis (DVT), Hyperlipidemia, Hypertension, Pulmonary Embolus ([place]) Additional Past Medical History / Comment(s): arrhythmia; C diff 2014, not hospital acquired, trigeminal neuralgia History of Any Multi-Drug Resistant Organisms: None Reported Past Surgical History: Orthopedic Surgery, Tonsillectomy Additional Past Surgical History / Comment(s): left arthroscopy knee. quad tendon surgery right knee Past Anesthesia/Blood Transfusion Reactions: No Reported Reaction Past Psychological History: No Psychological Hx Reported Smoking Status: Former smoker Past Alcohol Use History: None Reported Past Drug Use History: None Reported - Past Family History Father Family Medical History: Renal Disease Additional Family Medical History / Comment(s): Father from kidney failure, lung problems Mother Family Medical History: Myocardial Infarction ([place]) Additional Family Medical History / Comment(s): Mother and siblings had heart attacks, mom from Alzheimers complications General Exam Limitations: no limitations General appearance: alert, in no apparent distress Head exam: Present: atraumatic Eye exam: Present: normal appearance, PERRL ENT exam: Present: normal oropharynx Neck exam: Present: normal inspection Respiratory exam: Present: normal lung sounds bilaterally Cardiovascular Exam: Present: regular rate, normal rhythm Expanded Peripheral pulses: 2+: Dorsalis Pedis (R), Dorsalis Pedis (L) GI/Abdominal exam: Present: soft, tenderness (Mild tenderness left lower abdomen), normal bowel sounds. Absent: distended, guarding, rebound, rigid, pulsatile mass Extremities exam: Present: pedal edema (+1 bilateral). Absent: calf tenderness Back exam: Present: normal inspection. Absent: tenderness Neurological exam: Present: alert Psychiatric exam: Present: normal affect, normal mood Skin exam: Present: normal color Course Vital Signs 02/27/19 07:16 Temperature 97.9 F Pulse Rate 79 Respiratory 18 Rate Blood Pressure 145/66 O2 Sat by Pulse 95 Oximetry Medical Decision Making - Medical Decision Making Patient reevaluated and symptom-free. Abdomen soft and nontender. Patient and family updated on results and plan. - Lab Data Result diagrams: 02/27/19 07:40 02/27/19 07:40 Lab Results 02/27/19 02/27/19 02/27/19 Range/Units 07:40 07:40 07:40 WBC 8.5 (3.8-10.6) k/uL RBC 4.50 (4.30-5.90) m/uL Hgb 14.7 (13.0-17.5) gm/dL Hct 43.3 (39.0-53.0) % MCV 96.3 (80.0-100.0) fL MCH 32.7 (25.0-35.0) pg MCHC 33.9 (31.0-37.0) g/dL RDW 13.0 (11.5-15.5) % Plt Count 262 (150-450) k/uL Neutrophils % 70 % Lymphocytes % 18 % Monocytes % 6 % Eosinophils % 3 % Basophils % 1 % Neutrophils # 5.9 (1.3-7.7) k/uL Lymphocytes # 1.5 (1.0-4.8) k/uL Monocytes # 0.5 (0-1.0) k/uL Eosinophils # 0.2 (0-0.7) k/uL Basophils # 0.1 (0-0.2) k/uL PT 10.2 (9.0-12.0) sec INR 0.9 (<1.2) APTT 24.2 (22.0-30.0) sec Sodium 140 (137-145) mmol/L Potassium 4.4 (3.5-5.1) mmol/L Chloride 107 (98-107) mmol/L Carbon Dioxide 24 (22-30) mmol/L Anion Gap 9 mmol/L BUN 23 H (9-20) mg/dL Creatinine 0.95 (0.66-1.25) mg/dL Est GFR (CKD-EPI)AfAm >90 (>60 ml/min/1.73 sqM) Est GFR (CKD-EPI)NonAf 81 (>60 ml/min/1.73 sqM) Glucose 129 H (74-99) mg/dL Calcium 8.9 (8.4-10.2) mg/dL Total Bilirubin 0.7 (0.2-1.3) mg/dL AST 50 (17-59) U/L ALT 58 (21-72) U/L Alkaline Phosphatase 111 (38-126) U/L Total Protein 7.0 (6.3-8.2) g/dL Albumin 3.8 (3.5-5.0) g/dL Amylase 66 (30-110) U/L Lipase 309 H (23-300) U/L - Radiology Data Radiology results: report reviewed (Computed tomography scan of abdomen and pelvis shows no acute process) Disposition Clinical Impression: Abdominal pain Disposition: HOME SELF-CARE Condition: Stable Instructions (If sedation given, give patient instructions): Abdominal Pain (ED) Additional Instructions: Please follow-up with primary care physician in the next day or 2 for recheck. Return for increased pain, fever, vomiting, worsening symptoms or other concerns. Is patient prescribed a controlled substance at d/c from ED?: No Referrals: Tahmina Calvo MD [Primary Care Provider] - 1-2 days Time of Disposition: 09:41
[2019-02-27 07:55] LABS: Basophils # (A) 0.1 k/uL (0-0.2); Basophils % (A) 1 %; Eosinophils # (A) 0.2 k/uL (0-0.7); Eosinophils % (A) 3 %; HCT 43.3 % (39.0-53.0); HGB 14.7 gm/dL (13.0-17.5); Lymphocytes # (A) 1.5 k/uL (1.0-4.8); Lymphocytes % (A) 18 %; MCH 32.7 pg (25.0-35.0); MCHC 33.9 g/dL (31.0-37.0); MCV 96.3 fL (80.0-100.0); Mean Platelet Volume 6.2; Monocytes # (A) 0.5 k/uL (0-1.0); Monocytes % (A) 6 %; Neutrophils # (A) 5.9 k/uL (1.3-7.7); Neutrophils % (A) 70 %; Platelet Count 262 k/uL (150-450); WBC 8.5 k/uL (3.8-10.6)
[2019-02-27 08:02] LABS: INR 0.9 (<1.2); Partial Thromboplastin Time 24.2 sec (22.0-30.0); Prothrombin Time 10.2 sec (9.0-12.0)
[2019-02-27 08:12] LABS: ALT 58 U/L (21-72); AST 50 U/L (17-59); African American GFR (CKD) >90 (>60 ml/min/1.73 sqM); Albumin 3.8 g/dL (3.5-5.0); Alkaline Phosphatase 111 U/L (38-126); Amylase 66 U/L (30-110); Anion Gap 9 mmol/L; Blood Urea Nitrogen 23 mg/dL (9-20); Calcium 8.9 mg/dL (8.4-10.2); Carbon Dioxide 24 mmol/L (22-30); Chloride 107 mmol/L (98-107); Glucose 129 mg/dL (74-99); Non-African American GFR(CKD) 81 (>60 ml/min/1.73 sqM); Potassium 4.4 mmol/L (3.5-5.1); Sodium 140 mmol/L (137-145); Total Bilirubin 0.7 mg/dL (0.2-1.3)
--- NOTE | 2019-02-27 09:10 | CT ---
EXAMINATION TYPE: CT abdomen pelvis w con DATE OF EXAM: 02/27/2019 COMPARISON: None INDICATION: Abd/pelvic pain DLP: 2904 mGycm, Automated exposure control for dose reduction was used. CONTRAST: 100 mL of Isovue 300. Study performed without Oral Contrast TECHNIQUE: Axial images were obtained from above the diaphragm to the pubic rami in the axial plane a t 5 mm thick sections. Reconstructed images are reviewed on the computer in the coronal plane. FINDINGS: Limited CT sections are obtained the lung bases. The lung bases are clear. CT ABDOMEN: Liver: There is moderate fatty infiltration to the liver. No discrete masses are evident. Spleen: Normal Pancreas: Normal Adrenal glands: The adrenal glands are normal. Gallbladder: Normal Kidneys: No masses are evident. No hydronephrosis is present. There is a 0.9 cm cyst measuring 14 H [place] units on the lateral mid right kidney. Delayed images were obtained through the kidneys, w hich remain otherwise unremarkable. Aorta: Vascular calcification is within the aorta. Inferior vena cava: Normal. CT PELVIS: Loops of bowel within the abdomen and pelvis are normal. Study is without oral contrast limiting bowel evaluation. There are scattered diverticuli present without adjacent inflammatory changes. Appendix: Normal as visualized. Urinary bladder: Normal. Genitourinary structures: Prostate is unremarkable. Osseous structures: No suspicious lytic or sclerotic lesions. There is some degenerative disc changes in lumbar spine. Some facet degenerative changes noted. IMPRESSIONS: 1. Diverticulosis without acute diverticulitis.
[2019-02-27] MEDS ORDERED: ACET/COD 300 MG/30 MG STARTER PACK 6 TAB BTL PO STA (09:40)
[2019-02-27 09:51] VITALS: BP 135/62; PULSE 70; RESP 16
== END 2019-02-27 09:47 | disposition home or self-care (01) ==
LOC: EC 07:08
DX: R10.32 Left lower quadrant pain (principal); E78.5 Hyperlipidemia, unspecified; I10 Essential (primary) hypertension; Z79.890 Hormone replacement therapy; Z79.899 Other long term (current) drug therapy; Z88.0 Allergy status to penicillin; Z88.2 Allergy status to sulfonamides; Z87.891 Personal history of nicotine dependence; Z86.718 Personal history of other venous thrombosis and embolism; Z86.711 Personal history of pulmonary embolism
CPT/HCPCS: 36415; 80053; 82150; 83690; 85025; 85610; 85730; 74177; 99284; 96374; 96361 ×2; J2270; Q9967

== ENCOUNTER 2019-08-31 10:33 | Emergency (ER) | payer MEDICARE ==
[2019-08-31] MEDS ORDERED: IPRATROPIUM 0.5 MG/2.5 ML NEBU INHALATION STA (10:55)
[2019-08-31] MEDS ORDERED: DEXAMETHASONE 4 MG TAB PO STA (10:55)
[2019-08-31] MEDS ORDERED: ALBUTEROL NEBULIZED 2.5 MG/3 ML INHALATION STA (10:55)
--- NOTE | 2019-08-31 10:57 | ED ---
General Adult HPI - General Chief complaint: Upper Respiratory Infection Stated complaint: wheezing Time Seen by Provider: 08/31/19 10:34 Source: patient Mode of arrival: ambulatory Limitations: no limitations - History of Present Illness Initial comments: Dictation was produced using Winestyr dictation software. please excuse any grammatical, word or spelling errors. This patient was cared for during a federal and state declared state of emergen cy secondary to Covid 19 Chief Complaint: 69-year-old male past medical history of hypertension dyslipidemia, PE presents with wheezing History of Present Illness: 69-year-old male who presents today with wheezing. Patient states she's been feeling short of breath since June. He states that his symptoms started with pneumonia. He was given Z-Carroll at that time. Patient states that the Zithromax pack head help. Just recently his symptoms felt like we began to return. Noted that he was wheezing especially worse at night upon awaking. Denies any lower extremity swelling. Patient is a remote history of smoking. States he is on day several years ago. He does not have any known history of COPD or asthma. He has no history of heart failure. The ROS documented in this emergency department record has been reviewed and confirmed by me. Those systems with pertinent positive or negative responses have been documented in the HPI. All other systems are other negative and/or noncontributory. PHYSICAL EXAM: General Impression: Alert and oriented x3, not in acute distress HEENT: Normocephalic atraumatic, extra-ocular movements intact, pupils equal and reactive to light bilaterally, mucous membranes moist. Cardiovascular: Heart regular rate and rhythm Chest: Able to complete full sentences, no retractions, no tachypnea, diffuse bilateral lung wheezing Abdomen: abdomen soft, non-tender, non-distended, no organomegaly Musculoskeletal: Pulses present and equal in all extremities, no peripheral edema Motor: no focal deficits noted Neurological: CN II-XII grossly intact, no focal motor or sensory deficits noted Skin: Intact with no visualized rashes Psych: Normal affect and mood ED course: 69 yo Male presents today with chief complaint of wheezing. Vital signs upon arrival are within acceptable limits. Laboratory evaluation obtained. CBC, metabolic panel is unremarkable. Prematurity peptide is negative. Rotavirus test is negative. Chest x-ray is nonacute. Patient given MDI breathing treatment and steroids. Patient's well- appearing. He is not showing any signs of respiratory distress. Patient currently stable for discharge. Skin prescription for Medrol Dosepak. He has an albuterol inhaler and currently taking doxycycline. He is encouraged to continue taking his medications. Given referral to [employer] senior specialist. Patient understandable agreeable plan. Return parameters discussed. Patient will be discharged. EKG interpretation: Ventricular rate 79, normal sinus rhythm, NV interval 140, QRS 106, QTC 488. No NV prolongation, no QTC prolongation, no ST or T-wave changes noted. EKG compared to 01/26/2017 showing no changes. Overall, this E KG is unremarkable - Related Data Home Medications Medication Instructions Recorded Confirmed Allopurinol [Zyloprim] 300 mg PO DAILY 01/02/16 08/31/19 Metoprolol Tartrate [Lopressor] 25 mg PO BID 01/26/17 08/31/19 Atorvastatin [Lipitor] 40 mg PO HS 08/09/17 08/31/19 Levothyroxine Sodium [Synthroid] 50 mcg PO DAILY 02/27/19 08/31/19 Loratadine-Pseudoeph 5-120 mg 1 tab PO HS 02/27/19 08/31/19 [Claritin-D 12 Hour] Multivitamins, Thera [Multivitamin 1 tab PO DAILY 02/27/19 08/31/19 (formulary)] Albuterol Inhaler [Ventolin Hfa 2 puff INHALATION RT-QID PRN 08/31/19 08/31/19 Inhaler] Doxycycline [Vibramycin] 100 mg PO BID 08/31/19 08/31/19 Furosemide [Lasix] 20 mg PO DAILY 08/31/19 08/31/19 Previous Rx's Medication Instructions Recorded methylPREDNISolone [Medrol Dose 4 mg PO DIRECTED #1 pack 08/31/19 Pack] Allergies Allergy/AdvReac Type Severity Reaction Status Date / Time Penicillins Allergy Unknown Verified 08/31/19 10:38 Childhood Sulfa (Sulfonamide Allergy Rash/Hives Verified 08/31/19 10:38 Antibiotics) Review of Systems ROS Statement: Those systems with pertinent positive or pertinent negative responses have been documented in the HPI. ROS Other: All systems not noted in ROS Statement are negative. Past Medical History Past Medical History: Deep Vein Thrombosis (DVT), Hyperlipidemia, Hypertension, Pulmonary Embolus (PE) Additional Past Medical History / Comment(s): arrhythmia; C diff 2014, not hospital acquired, trigeminal neuralgia History of Any Multi-Drug Resistant Organisms: None Reported Past Surgical History: Orthopedic Surgery, Tonsillectomy Additional Past Surgical History / Comment(s): left arthroscopy knee. quad tendon surgery right knee Past Anesthesia/Blood Transfusion Reactions: No Reported Reaction Past Psychological History: No Psychological Hx Reported Smoking Status: Former smoker Past Alcohol Use History: None Reported Past Drug Use History: None Reported - Past Family History Father Family Medical History: Renal Disease Additional Family Medical History / Comment(s): Father from kidney failure, lung problems Mother Family Medical History: Myocardial Infarction ([place]) Additional Family Medical History / Comment(s): Mother and siblings had heart attacks, mom from Alzheimers complications General Exam Limitations: no limitations Course Vital Signs 08/31/19 08/31/19 10:35 10:37 Temperature 98.5 F Pulse Rate 79 Respiratory 18 20 Rate Blood Pressure 187/75 O2 Sat by Pulse 98 Oximetry Medical Decision Making - Lab Data Result diagrams: 08/31/19 11:15 08/31/19 11:15 Lab Results 08/31/19 08/31/19 08/31/19 Range/Units 11:15 11:15 11:15 WBC 9.0 (3.8-10.6) k/uL RBC 4.75 (4.30-5.90) m/uL Hgb 15.0 (13.0-17.5) gm/dL Hct 46.7 (39.0-53.0) % MCV 98.4 (80.0-100.0) fL MCH 31.6 (25.0-35.0) pg MCHC 32.1 (31.0-37.0) g/dL RDW 13.2 (11.5-15.5) % Plt Count 252 (150-450) k/uL Neutrophils % 63 % Lymphocytes % 23 % Monocytes % 6 % Eosinophils % 5 % Basophils % 1 % Neutrophils # 5.6 (1.3-7.7) k/uL Lymphocytes # 2.1 (1.0-4.8) k/uL Monocytes # 0.5 (0-1.0) k/uL Eosinophils # 0.4 (0-0.7) k/uL Basophils # 0.1 (0-0.2) k/uL Sodium 138 (137-145) mmol/L Potassium 4.7 (3.5-5.1) mmol/L Chloride 104 (98-107) mmol/L Carbon Dioxide 25 (22-30) mmol/L Anion Gap 9 mmol/L BUN 22 H (9-20) mg/dL Creatinine 0.97 (0.66-1.25) mg/dL Est GFR (CKD-EPI)AfAm >90 (>60 ml/min/1.73 sqM) Est GFR (CKD-EPI)NonAf 79 (>60 ml/min/1.73 sqM) Glucose 123 H (74-99) mg/dL Calcium 9.4 (8.4-10.2) mg/dL Troponin I <0.012 (0.000-0.034) ng/mL NT-Pro-B Natriuret Pep pg/mL Coronavirus (PCR) (Not Detectd) 08/31/19 08/31/19 Range/Units 11:15 11:15 WBC (3.8-10.6) k/uL RBC (4.30-5.90) m/uL Hgb (13.0-17.5) gm/dL Hct (39.0-53.0) % MCV (80.0-100.0) fL MCH (25.0-35.0) pg MCHC (31.0-37.0) g/dL RDW (11.5-15.5) % Plt Count (150-450) k/uL Neutrophils % % Lymphocytes % % Monocytes % % Eosinophils % % Basophils % % Neutrophils # (1.3-7.7) k/uL Lymphocytes # (1.0-4.8) k/uL Monocytes # (0-1.0) k/uL Eosinophils # (0-0.7) k/uL Basophils # (0-0.2) k/uL Sodium (137-145) mmol/L Potassium (3.5-5.1) mmol/L Chloride (98-107) mmol/L Carbon Dioxide (22-30) mmol/L Anion Gap mmol/L BUN (9-20) mg/dL Creatinine (0.66-1.25) mg/dL Est GFR (CKD-EPI)AfAm (>60 ml/min/1.73 sqM) Est GFR (CKD-EPI)NonAf (>60 ml/min/1.73 sqM) Glucose (74-99) mg/dL Calcium (8.4-10.2) mg/dL Troponin I (0.000-0.034) ng/mL NT-Pro-B Natriuret Pep 51 pg/mL Coronavirus (PCR) Not Detected (Not Detectd) Disposition Clinical Impression: Wheezing Disposition: HOME SELF-CARE Condition: Good Instructions (If sedation given, give patient instructions): Wheezing (ED) Prescriptions: methylPREDNISolone [Medrol Dose Pack] 4 mg PO DIRECTED #1 pack Is patient prescribed a controlled substance at d/c from ED?: No Referrals: Tahmina Calvo MD [Primary Care Provider] - 1-2 days Zhou Chauhan MD [STAFF PHYSICIAN] - 1-2 days Time of Disposition: 12:28
[2019-08-31] MEDS ORDERED: ALBUTEROL HFA INHALER INHALATION STA (11:03)
--- NOTE | 2019-08-31 11:22 | XR ---
EXAMINATION TYPE: XR chest 2V DATE OF EXAM: 08/31/2019 HISTORY: dyspnea. REFERENCE: Previous study dated 01/26/2017. FINDINGS: The lungs remain clear. Pleural space are clear. The heart is not enlarged. IMPRESSION: NO ACTIVE INTRATHORACIC DISEASE.
[2019-08-31 11:44] LABS: Basophils # (A) 0.1 k/uL (0-0.2); Basophils % (A) 1 %; Eosinophils # (A) 0.4 k/uL (0-0.7); Eosinophils % (A) 5 %; HCT 46.7 % (39.0-53.0); Lymphocytes # (A) 2.1 k/uL (1.0-4.8); Lymphocytes % (A) 23 %; MCH 31.6 pg (25.0-35.0); MCHC 32.1 g/dL (31.0-37.0); MCV 98.4 fL (80.0-100.0); Monocytes # (A) 0.5 k/uL (0-1.0); Monocytes % (A) 6 %; Neutrophils # (A) 5.6 k/uL (1.3-7.7); Neutrophils % (A) 63 %; Platelet Count 252 k/uL (150-450); RBC 4.75 m/uL (4.30-5.90); RDW 13.2 % (11.5-15.5)
[2019-08-31 11:55] LABS: African American GFR (CKD) >90 (>60 ml/min/1.73 sqM); Anion Gap 9 mmol/L; Blood Urea Nitrogen 22 mg/dL (9-20); Calcium 9.4 mg/dL (8.4-10.2); Carbon Dioxide 25 mmol/L (22-30); Chloride 104 mmol/L (98-107); Glucose 123 mg/dL (74-99); Non-African American GFR(CKD) 79 (>60 ml/min/1.73 sqM); Potassium 4.7 mmol/L (3.5-5.1); Sodium 138 mmol/L (137-145)
[2019-08-31 12:44] VITALS: BP 124/78; PULSE 71; RESP 18; TEMP 98.2
== END 2019-08-31 12:42 | disposition home or self-care (01) ==
LOC: EC 10:33
DX: R06.2 Wheezing (principal); R06.02 Shortness of breath; I10 Essential (primary) hypertension; E78.5 Hyperlipidemia, unspecified; Z88.0 Allergy status to penicillin; Z88.2 Allergy status to sulfonamides; Z79.890 Hormone replacement therapy; Z79.899 Other long term (current) drug therapy; Z86.718 Personal history of other venous thrombosis and embolism; Z86.711 Personal history of pulmonary embolism; Z87.891 Personal history of nicotine dependence
CPT/HCPCS: 36415; 94640; 93005; 83880; 80048; 84484; 85025; 87635; 71046; 99284; J8540

== ENCOUNTER → 2020-02-18 | Outpatient (CLI) | payer MEDICARE | END | disposition home or self-care (01) | LOC: LABWHC1 09:43 | PROVIDERS: ATTEND Family Medicine | DX: Z03.89 Encounter for observation for other suspected diseases and conditions ruled out (principal) | CPT/HCPCS: U0003; C9803 ==

== ENCOUNTER 2021-08-31 05:59 | Day surgery (SDC) | payer MEDICARE ==
[~2021-08-31 05:59] MED LIST: ALPRAZolam 0.25 MG TAB PO PRN; ALPRAZolam 0.5 MG TAB PO PRN; ASPIRIN 325 MG TAB PO STA; ATORVASTATIN 80 MG TAB PO STA; NITROGLYCERIN SL TABS 0.4 MG TAB SUBLINGUAL PRN; SODIUM CHLORIDE 0.9% 1,000 ML in EMPTY BAG 1 BAG IV SCH
[2021-08-31 06:28] VITALS: RESP 18
[2021-08-31 06:30] LABS: Glucose,Whole Blood 124 mg/dL (75-99)
[2021-08-31 06:34] LABS: Basophils # (A) 0.1 k/uL (0-0.2); Basophils % (A) 1 %; Eosinophils # (A) 0.5 k/uL (0-0.7); Eosinophils % (A) 5 %; HCT 47.5 % (39.0-53.0); HGB 15.1 gm/dL (13.0-17.5); Lymphocytes # (A) 2.3 k/uL (1.0-4.8); Lymphocytes % (A) 21 %; MCH 31.6 pg (25.0-35.0); MCHC 31.8 g/dL (31.0-37.0); MCV 99.4 fL (80.0-100.0); Mean Platelet Volume 8.1; Monocytes # (A) 0.6 k/uL (0-1.0); Monocytes % (A) 5 %; Neutrophils # (A) 7.2 k/uL (1.3-7.7); Neutrophils % (A) 66 %; Platelet Count 295 k/uL (150-450); RBC 4.78 m/uL (4.30-5.90); RDW 12.5 % (11.5-15.5); WBC 10.9 k/uL (3.8-10.6)
[2021-08-31] MEDS ORDERED: HEPARIN SODIUM,PORCINE 2,500 UNIT in SODIUM CHLORIDE 0.9% 250 ML IRRIGATION PRN (07:00)
[2021-08-31] MEDS ORDERED: HEPARIN SODIUM,PORCINE 10,000 UNIT in SODIUM CHLORIDE 0.9% 1,000 ML IRRIGATION PRN (07:00)
[2021-08-31] MEDS ORDERED: fentaNYL (PF) 50 MCG/ML 2 ML AMP ONE (07:35)
[2021-08-31] MEDS ORDERED: HEPARIN SODIUM 1,000 UN/ML (10ML VL) ONE (07:35)
[2021-08-31] MEDS ORDERED: VERAPAMIL 2.5 MG/ML 2 ML AMP ONE (07:36)
[2021-08-31] MEDS: MIDAZOLAM 2 MG/2 ML VIAL IV ONE ×2 (07:39→08:27)
[2021-08-31] MEDS: fentaNYL (PF) 50 MCG/ML 2 ML AMP IV ONE ×2 (07:39→07:43)
[2021-08-31] MEDS ORDERED: LIDOCAINE 1% INJ 10MG/ML (5 ML VIAL-PF) SQ ONE (07:40)
[2021-08-31] MEDS ORDERED: VERAPAMIL SYRINGE (5 MG/10 ML) INTRAARTER ONE (07:43)
[2021-08-31] MEDS: HEPARIN SODIUM 1,000 UN/ML (10ML VL) IV ONE ×4 (07:47→08:56)
[2021-08-31] MEDS ORDERED: CLOPIDOGREL 75 MG TAB ONE (08:09)
[2021-08-31] MEDS ORDERED: CLOPIDOGREL 75 MG TAB PO ONE (08:23)
[2021-08-31] MEDS ORDERED: IOPAMIDOL-370 125ML BTL INJ ONE (08:45)
[2021-08-31] MEDS ORDERED: IOPAMIDOL-370 100ML BTL INJ ONE ×2 (08:54)
[2021-08-31] MEDS ORDERED: ZOLPIDEM 5 MG TAB PO PRN (09:05)
[2021-08-31] MEDS ORDERED: RX INFO: IV CONTRAST WAS GIVEN 1 EACH MISC MISCELLANE PRN (09:05)
[2021-08-31] MEDS ORDERED: ATROPINE SULFATE 0.1 MG/ML 10ML SYRINGE IV PRN (09:05)
[2021-08-31] MEDS ORDERED: MAG HYDROX/AL HYDROX/SIMETH 30 ML CUP PO PRN (09:05)
[2021-08-31] MEDS ORDERED: NITROGLYCERIN SL TABS 0.4 MG TAB SUBLINGUAL PRN (09:05)
--- NOTE | 2021-08-31 09:13 | P.CARDCATH ---
Date of Procedure: 08/31/21 Description of Procedure: PERCUTANEOUS TRANSLUMINAL CORONARY ANGIOPLASTY CLINICAL INFORMATION: The patient is a 71-year-old male with a known history of hypertension, hyperlipidemia and diabetes mellitus who had recent onset dyspnea on exertion with a positive stress test, underwent cardiac catheterization by Dr. Diego and was found to have severe stenosis in the mid RCA, recommendations were made regarding angioplasty and stenting, the procedure as well as the risks and the complications were discussed with the patient who was in full understanding and agreement. PROCEDURE: A 6 Vietnamese 0.75 AL guiding catheter was introduced into the system. After cannulating the right coronary ostium, a 0.014 whisper J-wire with a super cross microcatheter was advanced across the lesion and positioned distally, the wire was exchanged to a 0.014 BMW. Following that a 2.5 x 12 mm NC Treck balloon was advanced into inflation at 8 elkin were done. Following that a 3.0 x 18 mm Xience barry point stent was deployed. It was dilated at 16. After removing the balloon 3.25 x 12 mm NC Treck balloon was advanced and one inflation at 12 elkin was done. After the last inflation, after appropriate wait, the balloon and the guidewire were withdrawn back into the guiding catheter. Images were obtained and repeated. Those images reveal stable successful stenting. At that point, the guiding catheter, the balloon, and guidewire were removed. The sheath was removed. Hemostasis was obtained with deployment of th e TR band. There were no immediate complications. The patient was returned to the room in stable condition. Of note, the patient received 5000 units of heparin as well as Plavix. His ACT was followed, he had no chest discomfort or EKG changes. RESULTS: Successful stenting of the mid RCA with reduction of stenosis from 99 % to less than 5 %. RECOMMENDATIONS: I have recommended dual antiplatelet treatment with aspirin and Plavix for at least 6 months with aggressive coronary risks modifications. The findings and recommendations were discussed with the patient and his family, they are in full understanding and agreement. Duration of sedation 31 minutes.
[2021-08-31] MEDS ORDERED: SODIUM CHLORIDE 0.9% 1,000 ML in EMPTY BAG 1 BAG IV SCH (09:15)
[2021-08-31 10:01] VITALS: TEMP 97.7
--- NOTE | 2021-08-31 10:18 | CC ---
CARDIAC CATHETERIZATION REPORT INDICATION: Shortness of breath with abnormal stress test showing ischemia involving inferior wall. PROCEDURE NOTE: After obtaining informed consent, left heart catheterization and coronary angiogram were performed via the right radial artery using size 3.5 right and left Mariama catheters, and a pigtail catheter to obtain the hemodynamics. Patient tolerated the procedure well without any obvious immediate complications. Patient received moderate conscious sedation. Total sedation time was 20 minutes. Using a micropuncture needle with Seldinger technique, right radial artery access was obtained. Under fluoroscopic guidance catheters and wires were navigated into the ascending aorta, where they were exchanged. Patient received 5 mg of verapamil and 5000 units of heparin as per protocol. FINDINGS: HEMODYNAMICS: Left ventricular end-diastolic pressure is 11 mm. There is no significant gradient across the aortic valve. LEFT VENTRICULOGRAM: Left ventriculogram was not performed. ANGIOGRAPHIC DATA: Right coronary artery appears calcified, as does the left system. It is a large dominant vessel and there is a focal area of 95% stenosis in the mid RCA. Circumflex coronary artery is a codominant system and shows calcification without focal obstruction. LAD gives off a large-caliber diagonal branch that has ostial narrowing, and the mid portion shows a 40% to 50% stenosis. CONCLUSIONS: Focal stenosis of 95% involving mid RCA and moderate to severe atherosclerotic plaque involving the ostial portion of the diagonal branch in its mid portion. Both the left and right coronary arteries are calcified. PLAN: I believe patient's symptoms are related to the right coronary artery lesion, which is why the stress test was abnormal, and he will undergo angioplasty of the same. I will manage the rest of his lesions medically and see how his symptoms evolve. MMODL / IJN: [id number] /
[2021-08-31 12:46] VITALS: BP 128/60; PULSE 62
[2021-08-31 14:16] VITALS: BMI 43.7
[2021-08-31] MEDS ORDERED: SYMBICORT 80-4.5 MCG INHALER INHALATION SCH (20:00)
[2021-08-31] MEDS ORDERED: METOPROLOL TARTRATE 25 MG TAB PO SCH (21:00)
[2021-08-31] MEDS ORDERED: MONTELUKAST 10 MG TAB PO SCH (21:00)
[2021-09-01] MEDS ORDERED: LEVOTHYROXINE 50 MCG TAB PO SCH (06:30)
[2021-09-01] MEDS ORDERED: PANTOPRAZOLE 40 MG TABLET PO SCH (07:30)
[2021-09-01] MEDS ORDERED: allopurinoL 300 MG TAB PO SCH (09:00)
[2021-09-01] MEDS ORDERED: ISOSORBIDE MONONITRATE ER 30 MG TAB.ER.24H PO SCH (09:00)
[2021-09-01] MEDS ORDERED: CLOPIDOGREL 75 MG TAB PO SCH (09:00)
[2021-09-01] MEDS ORDERED: ASPIRIN 81 MG PO SCH (09:00)
[2021-09-01] MEDS ORDERED: MULTIVITAMINS, THERA 1 EACH TAB PO SCH (09:00)
[2021-09-01] MEDS ORDERED: ATORVASTATIN 40 MG TAB PO SCH (21:00)
== END 2021-08-31 16:14 | disposition home or self-care (01) ==
LOC: CATHCVL 05:59 → 6NMEDSUR 08:56 → CATHCVL 16:14
PROVIDERS: ATTEND Internal Medicine Cardiovascular Disease
DX: R06.02 Shortness of breath (principal); I25.10 Atherosclerotic heart disease of native coronary artery without angina pectoris; I25.84 Coronary atherosclerosis due to calcified coronary lesion; I10 Essential (primary) hypertension; E78.5 Hyperlipidemia, unspecified; E11.9 Type 2 diabetes mellitus without complications; E66.9 Obesity, unspecified; Z68.41 Body mass index [BMI] 40.0-44.9, adult; Z72.0 Tobacco use; Z86.718 Personal history of other venous thrombosis and embolism; Z82.49 Family history of ischemic heart disease and other diseases of the circulatory system; Z88.0 Allergy status to penicillin; Z88.2 Allergy status to sulfonamides
CPT/HCPCS: 93458; 85025; C9600; C1769 ×3; C1887 ×2; C1894; C1725 ×2; C1874; J2250; J2001; J3010; J1644; Q9967 ×2

== ENCOUNTER 2023-02-14 07:31 | Day surgery (SDC) | payer MEDICARE ==
[2023-02-08 11:36] VITALS: BMI 43.0
[~2023-02-14 07:31] MED LIST changes: -ALPRAZolam 0.25 MG TAB PO PRN; -ALPRAZolam 0.5 MG TAB PO PRN; -ASPIRIN 325 MG TAB PO STA; -ATORVASTATIN 80 MG TAB PO STA; +LACTATED RINGERS 1,000 ML IV SCH; -NITROGLYCERIN SL TABS 0.4 MG TAB SUBLINGUAL PRN; -SODIUM CHLORIDE 0.9% 1,000 ML in EMPTY BAG 1 BAG IV SCH
[2023-02-14 07:47] LABS: Glucose,Whole Blood 143 mg/dL (70-110)
[2023-02-14] MEDS ORDERED: methylPREDNISolone ACETATE 40 MG/ML 1 ML VIAL ONE (08:00)
[2023-02-14] MEDS ORDERED: IOPAMIDOL M200 10 ML VIAL ONE (08:00)
[2023-02-14 08:02] VITALS: RESP 18; TEMP 97.9
--- NOTE | 2023-02-14 08:08 | P.PCN ---
Date of Procedure: 02/14/23 Procedure(s) Performed: PREOPERATIVE DIAGNOSIS: 1- Lumbar Degenerative Disc Diseases 2-Lumbar spondylosis with Facet arthropathy without myelopathy. POSTOPERATIVE DIAGNOSIS: 1-lumbar degenerative disc disease. 2-lumbar spondylosis with facet arthropathy without myelopathy. PROCEDURE 1. Lumbar epidural steroid injection under fluoroscopic guidance at the L3-4 level. (Fluoroscopy imaging was available in radiology department) 2. Lumbar epidurogram. ANESTHESIA: Lidocaine 1% 3 and then only. EBL: Minimal PROCEDURE INDICATION: The patient with low back pain and radiculitis symptoms unresponsive to conservative treatment. Fluoroscopy was used to optimize visualization of the needle placement and to maximize safety. PROCEDURE DESCRIPTION / TECHNIQUE: The patient was seen and identified in the preoperative area. Risks, benefits, complications including but not limited to infections ,bleeding ,allergic reaction to the medications ,nerve damage and not complete pain releife , and alternatives were discussed with the patient. The patient agreed to proceed with the procedure and signed the consent, and vital signs were stable. Patient was taken to the OR and time out was completed. The patient was placed in the prone position on procedure table and a pillow was placed under the abdomen to reduce lumbar lordosis. The lumbosacral area was prepped and draped in the usual sterile fashion.ere closely monitored during the procedure. Vital signs was monitered during the entire procedure. Using anterior-posterior fluoroscopy, the L3-4 interlaminar space was identified and the skin over this site was marked and then infiltrated with 1% lidocaine subcutaneously. Subsequently, a 18-gauge 6 inches long Tuohy epidural needle was inserted and advanced toward the epidural space using the ``Loss of resistance technique and guided by AP and lateral fluoroscopy. The correct needle position in the epidural space was verified with the injection of 2 mL of the water soluble contrast dye Isovue 200 contrast and observing an excellent epidurogram with the epidural spread of the dye, after negative aspiration for blood and CSF and in the absence of paresthesias. Again after negative aspiration, a 6 ml mixture containing 40 mg of Depo-medrol ( Preservetive Free ), and 2 ml of preservative free Normal Saline, and 2 ml of preservative free lidocaine 1% solution was injected and a washout of epidurogram was seen. Needle was withdrawn intact, skin was cleansed, and bandages were applied. COMPLICATIONS: None DISPOSITION / PLANS: The patient was placed in a supine position and transferred to the recovery area in a stable condition for observation. There was no evidence of lower extremity motor or sensory deficit after the procedure. Patient was discharged from the recovery room after meeting discharge criteria. Home discharge instructions were given to the patient by the staff. The patient was reexamined prior to discharge. The patient will schedule a follow up in the clinic in 2-4 weeks.
[2023-02-14 08:43] VITALS: BP 110/58; PULSE 64
--- NOTE | 2023-02-14 08:51 | FL ---
Intraoperative/procedural fluoroscopic services were provided for lumbar epidural steroid injection. Total fluoroscopy time is 5.5 seconds with a total of 1 submitted image to PACS. Total DAP [id number] mG ym2. Please see the operative note for further details.
== END 2023-02-14 08:41 | disposition home or self-care (01) ==
LOC: ORPAIN 07:31
PROVIDERS: ATTEND Specialist
DX: M51.16 Intervertebral disc disorders with radiculopathy, lumbar region (principal); M47.26 Other spondylosis with radiculopathy, lumbar region; E11.9 Type 2 diabetes mellitus without complications; Z79.82 Long term (current) use of aspirin; Z88.0 Allergy status to penicillin; Z88.2 Allergy status to sulfonamides
CPT/HCPCS: 62323; J1030; Q9966

== ENCOUNTER → 2023-03-02 | Outpatient (CLI) | payer MEDICARE ==
[2023-03-02 09:35] VITALS: BP 106/62; PULSE 66; RESP 15; TEMP 98.4
--- NOTE | 2023-03-02 12:27 | P.PAINPG ---
PQRS Measure Charge Sheet Comment: HISTORY OF PRESENT ILLNESS: 72 yr old male w at side presents today w severe and chronic LBP x 2 yrs secondary to DDD, spondylosis and facet arthropathy without myelopathy for evaluation s/p YORDY L3-L4 #1. Pt states he experienced 50% pain relief x 2 wks s/p procedure. Pt states pain level is provoked at 9/10 in intensity, intermittent, localized in the mid to lower lumbar spine, dull in character without shooting pains. Pain is provoked by standing/ walking for periods of 10 min or more. Pain is alleviated by PT integrated w massage x 6 wks in Oct 2022, chiropractic treatments semi monthly w last visit in May 2022, medications, topical, repositioning and rest. Oswestry axial pain score at 20. Interventional procedures include YORDY L3-L4 x1 Medications include Aleve REVIEW OF ORGAN SYSTEMS: CONSTITUTIONAL: No fevers or chills. No recent weight loss. NEUROLOGICAL: + numbness and tingling along the distal extremities. No seizure disorders or headaches. MUSCULOSKELETAL: + pain PSYCHIATRIC: Denies current depression or suicidal thoughts. Physical Examinations : Constitutional : Cooperative , not in acute distress . Neurologic : Cranial nerve II to XII intact. No focal neurological deficits. Psychiatric : alert & oriented x 3. Matching mood & appropriate affect. Judgment & insight intact. Musculoskeletal : Cervical Spine Motor strength in the deltoid and biceps: Normal right side. Normal Left side Motor strength biceps and the wrist extensors: Normal right side . Normal left side Motor strength in the triceps muscle: Normal right side. Normal left side Deep tendon reflexes: Normal at the biceps. Normal at Brachioradialis. Normal at triceps Vertebral body tenderness to deep palpation over Cervical facet loading test: positive bilaterally Spurling test: positive bilaterally Neck distraction test: positive bilaterally Seth sign: positive bilaterally Lumbar spine Motor strength lower extremities ,thigh and legs 5/5 Right side , 5/5 Left side Deep tendon reflexes : Normal Knee Jerk. Normal Ankle Jerk Vertebral body tenderness over L4 Johnson Test positive Lumbar facet Loading Test: positive Right / positive Left Range of motion of the lumbar spine Flexion 30 degrees, extension 10 degrees Straight Leg Raise test: Left/ Right positive at 35 degrees Susan test: positive right / positive left. Severe tenderness over the Sacroiliac joint on the Right / Left sides Gaenslen test: positive bilaterally Seated flexion test: positive bilaterally. Sacral spine : Severe tenderness over the Sacroiliac joint: right side / left side Range of motion: Flexion of the lumbar spine <60 degrees Range of motion: Extension of the lumbar spine <20 degrees Gaenslen's Test positive Kevin's Test positive Susan test: positive right side / left side Thigh Thrust Test Sacral Thrust Test Imaging: MRI noncontrast of the lumbar spine from 12/24/22 reviewed Assessment/ Plan : Lumbar DDD Recommendation of L paramedian YORDY L4-L5 #2. May need a series of injections for optimal pain relief. Risks, benefits of procedure discussed and patient verbalized understanding. Admits to anti- coagulant use or medical history of diabetes. Protocol for discontinuation/ continuation of medications jewell procedure discussed. Minimal anesthesia provided, if clinically indicated, consisting of Versed and Fentanyl. All questions answered. I have spent greater than 30 minutes on patient care today. Dr Glynn was available by phone for the evaluation of this patient. The time was used to review the medical records including relevant urine studies and Prescription history (MAPs), review of the available imaging, evaluation and examination of the patient, coordination of care with the medical staff and if applicable referring physicians, as well as creation of the medical record PQRS Narrative: Smoking Status Former smoker Hx Alcohol Use (MH) No Home Medications: Ambulatory Orders allopurinoL [Zyloprim] 300 mg PO DAILY 01/02/16 Metoprolol Tartrate [Lopressor] 25 mg PO BID 01/26/17 Atorvastatin [Lipitor] 40 mg PO HS 08/09/17 Levothyroxine Sodium [Synthroid] 50 mcg PO DAILY 02/27/19 Multivitamins, Thera [Multivitamin (formulary)] 1 tab PO DAILY 02/27/19 Furosemide [Lasix] 20 mg PO DAILY 08/31/19 Aspirin [Adult Low Dose Aspirin EC] 81 mg PO DAILY 08/27/21 Fluticasone Propion/Salmeterol [Wixela 250-50 Inhub] 1 inhalation PO HS 08/27/21 Montelukast [Singulair] 10 mg PO HS 08/27/21 Omeprazole 20 mg PO DAILY 08/27/21 metFORMIN HCL [Glucophage] 500 mg PO BID 08/27/21 Isosorbide Mononitrate [Isosorbide Mononitrate ER] 30 mg PO DAILY 08/31/21 Nitroglycerin Sl Tabs [Nitrostat] 0.4 mg SUBLINGUAL Q5M PRN #25 tab 08/31/21 diazePAM [Valium] 5 mg PO DAILY PRN 1 Days #2 tab 03/02/23 Controlled Substance Measures - Controlled Substance Measures Is patient prescribed a controlled substance at discharge?: Yes When asked, does pt state using other controlled substances?: No If prescribed controlled substance>3 days was MAPS reviewed?: Prescribed <3 Days
== END ==
LOC: PNWHC3 08:56
PROVIDERS: ATTEND Anesthesiology
DX: M51.36 Other intervertebral disc degeneration, lumbar region (principal); Z87.891 Personal history of nicotine dependence; Z79.82 Long term (current) use of aspirin; Z88.0 Allergy status to penicillin; Z88.2 Allergy status to sulfonamides
CPT/HCPCS: 99211

== ENCOUNTER 2023-03-28 09:58 | Day surgery (SDC) | payer MEDICARE ==
[2023-03-21 09:23] VITALS: BMI 42.2
[2023-03-28 11:21] LABS: Glucose,Whole Blood 109 mg/dL (70-110)
[2023-03-28 11:34] VITALS: TEMP 96.8
[2023-03-28] MEDS ORDERED: methylPREDNISolone ACETATE 80 MG/ML 1 ML VIAL ONE (11:49)
[2023-03-28] MEDS ORDERED: ROPIVACAINE 5MG/ML 20ML VIAL ONE (11:49)
[2023-03-28] MEDS ORDERED: IOPAMIDOL M200 10 ML VIAL ONE (11:49)
--- NOTE | 2023-03-28 12:31 | P.PCN ---
Description of Procedure: PREOPERATIVE DIAGNOSIS: 1- Lumbar Degenerative Disc Diseases 2-Lumbar spondylosis with Facet arthropathy without myelopathy. 3-lumbar spinal stenosis POSTOPERATIVE DIAGNOSIS: 1-lumbar degenerative disc disease. 2-lumbar spondylosis with facet arthropathy without myelopathy. 3-lumbar spinal stenosis. PROCEDURE Injection of radial contrast material into L5 S1 interspace, interpretation of epidurogram, injection of steroid at L5S1 epidural space under fluoroscopic guidance. ANESTHESIA: Lidocaine 1% subcutaneously. In OR continuous pulse ox, EKG, blood pressure and volleyball complication was maintained with the patient. EBL: Minimal PROCEDURE INDICATION: Before the procedure were discussed with the patient de tailed procedure, alternatives, complications including infection, bleeding, nerve damage, paralysis all of which could be permanent. Patient understands and all questions were answered. PROCEDURE DESCRIPTION : After getting consent, patient in OR in prone position. Back was prepped with chlorhexidine and draped in sterile fashion. Initial attempt at L45 level was unsuccessful because of critical narrowing of the intervertebral space. After injecting 10 mL of 1% lidocaine subcutaneously, a 20-gauge Tuohy needle was introduced at L5S1 interspace with loss of resistance technique using a syringe filled with air. Negative CSF, negative blood, negative paresthesia. Needle position was confirmed with AP and lateral view of the fluoroscope. After repeat negative aspiration 2 mL of Omnipaque 200 water soluble contrast was injected. Contrast was noted in the epidural space. No contrast was noted into intrathecal or intravascular space. After repeat negative aspiration 6 mL solution was injected intermittently which consists of 5 mL of preservative-free normal saline mixed with 1 mL of 80 mg Depo-Medrol. Needle was withdrawn intact. Skin was cleansed and Band-Aids was applied. DISPOSITION / PLANS: The patient tolerated the procedure well. No complication. The patient was placed in a supine position and transferred to the recovery area in a stable condition for observation. There was no evidence of lower extremity motor or sensory deficit after the procedure. Patient was discharged from the recovery room after meeting discharge criteria. Home discharge instructions were given to the patient by the staff. The patient was reexamined prior to discharge. The patient will schedule a follow up in the clinic in 2-4 weeks.
[2023-03-28 12:35] VITALS: RESP 20
--- NOTE | 2023-03-28 12:59 | FL ---
EXAMINATION TYPE: FL guided pain mgmt statistic DATE OF EXAM: 03/28/2023 HISTORY: Fluoroscopy time Total dose area product (DAP) in uGy*m?, mGy*cm? (or similar): 0.95241 IMPRESSION: 1. Fluoroscopy time.
[2023-03-28 15:41] VITALS: BP 138/78; PULSE 66
== END 2023-03-28 12:33 | disposition home or self-care (01) ==
LOC: ORPAIN 09:58
PROVIDERS: ATTEND Pain Medicine Interventional Pain Medicine
DX: M51.36 Other intervertebral disc degeneration, lumbar region (principal); M47.816 Spondylosis without myelopathy or radiculopathy, lumbar region; M48.061 Spinal stenosis, lumbar region without neurogenic claudication; E11.9 Type 2 diabetes mellitus without complications; Z88.0 Allergy status to penicillin; Z88.2 Allergy status to sulfonamides; Z79.82 Long term (current) use of aspirin
CPT/HCPCS: 62323; J1040; Q9966; J2795

== ENCOUNTER 2024-08-19 18:39 | Observation (INO) | payer MEDICARE ==
--- NOTE | 2024-08-19 19:11 | ED ---
SOB HPI - General Chief Complaint: Shortness of Breath Stated Complaint: GARRETT, COVID+ Time Seen by Provider: 08/19/24 18:47 Source: patient Mode of arrival: EMS Limitations: no limitations - History of Present Illness Initial Comments: This is a 74 male to the ED who complains of SOB,known covid, patient has persistent shortness of breath here in the ER with fever, underlying COPD difficulty breathing MD Complaint: shortness of breath, cough, chest pain -: hour(s) Radiation: back Severity: moderate Severity scale (1-10): 4 Quality: dull Consistency: constant Improves With: nothing Worsens With: nothing Context: recent URI Associated Symptoms: denies other symptoms - Related Data Home Medications Medication Instructions Recorded Confirmed allopurinoL [Zyloprim] 300 mg PO DAILY 01/02/16 03/28/23 Metoprolol Tartrate [Lopressor] 25 mg PO BID 01/26/17 03/28/23 Atorvastatin [Lipitor] 40 mg PO HS 08/09/17 03/28/23 Levothyroxine Sodium [Synthroid] 50 mcg PO DAILY 02/27/19 03/28/23 Multivitamins, Thera [Multivitamin 1 tab PO DAILY 02/27/19 03/28/23 (formulary)] Furosemide [Lasix] 20 mg PO DAILY 08/31/19 03/28/23 Aspirin [Adult Low Dose Aspirin EC] 81 mg PO DAILY 08/27/21 03/28/23 Fluticasone Propion/Salmeterol 1 inhalation PO HS 08/27/21 03/28/23 [Wixela 250-50 Inhub] Montelukast [Singulair] 10 mg PO HS 08/27/21 03/28/23 Omeprazole 20 mg PO DAILY 08/27/21 03/28/23 metFORMIN HCL [Glucophage] 500 mg PO BID 08/27/21 03/28/23 Isosorbide Mononitrate [Isosorbide 30 mg PO DAILY 08/31/21 03/28/23 Mononitrate ER] Ezetimibe [Zetia] 10 mg PO HS 03/21/23 03/28/23 Previous Rx's Medication Instructions Recorded Nitroglycerin Sl Tabs [Nitrostat] 0.4 mg SUBLINGUAL Q5M PRN #25 tab 08/31/21 diazePAM [Valium] 5 mg PO DAILY PRN 1 Days #2 tab 03/02/23 Allergies Allergy/AdvReac Type Severity Reaction Status Date / Time Penicillins Allergy Unknown Verified 08/19/24 18:57 Childhood Sulfa (Sulfonamide Allergy Rash/Hives Verified 08/19/24 18:57 Antibiotics) Review of Systems ROS Statement: Those systems with pertinent positive or pertinent negative responses have been documented in the HPI. ROS Other: All systems not noted in ROS Statement are negative. Past Medical History Past Medical History: Asthma, COPD, Diabetes Mellitus, Deep Vein Thrombosis (DVT), Hyperlipidemia, Hypertension, Pulmonary Embolus (PE) Additional Past Medical History / Comment(s): Hx. of arrhythmia; trigeminal neuralgia, SOB, non- alcoholic fatty liver disease History of Any Multi-Drug Resistant Organisms: None Reported Past Surgical History: Heart Catheterization With Stent, Orthopedic Surgery, Tonsillectomy Additional Past Surgical History / Comment(s): arthroscopy both knee. quad tendon surgery right knee, COLONOSCOPY, stent in RCA 2020 Past Anesthesia/Blood Transfusion Reactions: No Reported Reaction Date of Last Stent Placement:: 2020 Past Psychological History: No Psychological Hx Reported Smoking Status: Former smoker Past Alcohol Use History: None Reported Past Drug Use History: None Reported - Past Family History Father Family Medical History: Renal Disease Additional Family Medical History / Comment(s): Father from kidney failure, lung problems Mother Family Medical History: Cancer, Myocardial Infarction (PR) Additional Family Medical History / Comment(s): Mother and siblings had heart attacks, mom from Alzheimers complications Brother(s) Family Medical History: Deep Vein Thrombosis (DVT) General Exam Limitations: no limitations General appearance: alert, in no apparent distress, anxious Head exam: Present: atraumatic, normocephalic, normal inspection Eye exam: Present: normal appearance, PERRL, EOMI. Absent: scleral icterus, conjunctival injection, periorbital swelling ENT exam: Present: normal exam, mucous membranes moist Neck exam: Present: normal inspection. Absent: tenderness, meningismus, lymp hadenopathy Respiratory exam: Present: wheezes, accessory muscle use, decreased breath sounds, prolonged expiratory. Absent: respiratory distress, rales, rhonchi, stridor Cardiovascular Exam: Present: regular rate, normal rhythm, normal heart sounds. Absent: systolic murmur, diastolic murmur, rubs, gallop, clicks GI/Abdominal exam: Present: soft, normal bowel sounds. Absent: distended, tenderness, guarding, rebound, rigid Extremities exam: Present: normal inspection, full ROM, normal capillary refill. Absent: tenderness, pedal edema, joint swelling, calf tenderness Back exam: Present: normal inspection Neurological exam: Present: alert, oriented X3, CN II-XII intact Psychiatric exam: Present: normal affect, normal mood Skin exam: Present: warm, dry, intact, normal color. Absent: rash Course Vital Signs 08/19/24 18:53 Temperature 100.8 F H Pulse Rate 89 Respiratory 16 Rate Blood Pressure 150/58 O2 Sat by Pulse 90 L Oximetry - Reevaluation(s) Reevaluation #1: 08/19/24 20:16 Medical records reviewed Reevaluation #2: 08/19/24 20:16 Symptoms improving with symptomatic treatment including fever control Breathing is improved Reevaluation #3: 08/19/24 20:16 Patient informed of results and questions answered Reevaluation #4: Was pt. sent in by a medical professional or institution (, PA, FREIGHT CHECKER, urgent care, hospital, or long term...) When possible be specific @ -no Did you speak to anyone other than the patient for history (EMS, parent, family, police, friend...)? What history was obtained from this source @ -no Did you review nursing and triage notes (agree or disagree)? Why? @ -agree Are old charts reviewed (outside hosp., previous admission, EMS record, old EKG, old radiological studies, urgent care reports/EKG's, long term records)? Report findings @ -yes Differential Diagnosis (chest pain, altered mental status, abdominal pain women, abdominal pain men, vaginal bleeding, weakness, fever, dyspnea, syncope, headache, dizziness, GI bleed, back pain, seizure, CVA, palpatations, mental health, musculoskeletal)? @ -prior EKG interpreted by me (3pts min.). @ -yes X-rays interpreted by me (1pt min.). @ -yes negative for acute disease CT interpreted by me (1pt min.). @ -no U/S interpreted by me (1pt. min.). @ -no What testing was considered but not performed or refused? (CT, X-rays, U/S, labs)? Why? @ -none What meds were considered but not given or refused? Why? @ -none Did you discuss the management of the patient with other professionals (professionals i.e. , PA, FREIGHT CHECKER, lab, RT, psych nurse, social service assistant, customs port director, teacher, aoc aadc operations staff officer, disease case manager)? Give summary @ -no Was smoking cessation discussed for >3mins.? @ -no Was critical care preformed (if so, how long)? @ -no Were there social determinants of health that impacted care today? How? (Homelessness, low income, unemployed, alcoholism, drug addiction, transportation, low edu. Level, literacy, decrease access to med. care, senior living, rehab)? @ -none Was there de-escalation of care discussed even if they declined (Discuss DNR or withdrawal of care, Hospice)? DNR status @ -no What co-morbidities impacted this encounter? (DM, HTN, Smoking, COPD, CAD, Cancer, CVA, ARF, Chemo, Hep., AIDS, mental health diagnosis, sleep apnea, morbid obesity)? @ -none Was patient admitted / discharged? Hospital course, mention meds given and route, prescriptions, significant lab abnormalities, going to OR and other pertinent info. @ - Undiagnosed new problem with uncertain prognosis? @ -no Drug Therapy requiring intensive monitoring for toxicity (Heparin, Nitro, Insulin, Cardizem)? @ -no Were any procedures done? @ -no Diagnosis/symptom? @ - Acute, or Chronic, or Acute on Chronic? @ -Acute Uncomplicated (without systemic symptoms) or Complicated (systemic symptoms)? @ -Complicated Side effects of treatment? @ -no Exacerbation, Progression, or Severe Exacerbation? @ -exacerbation Poses a threat to life or bodily function? How? (Chest pain, [place], PR, pneumonia, PE, COPD, DKA, ARF, appy, cholecystitis, CVA, Diverticulitis, Homicidal, Suicidal, threat to staff... and all critical care pts) @ -yes Reevaluation #5: Differential Dyspnea: Coronary syndrome, arrhythmia, tamponade, asthma, COPD, pulmonary embolism, pneumonia, pneumothorax, pulmonary effusion, anaphylaxis, diabetic ketoacidosis, flailed chest, pulmonary contusion, diaphragmatic rupture, anemia, neuromuscular, this is not meant to be an all-inclusive list. Differential Fever: Pneumonia, viral URI, endocarditis, myocarditis, pericarditis, otitis, sinusitis, peritonsillar Abscess, retropharyngeal Abscess, epiglottitis, peritonitis, appendicitis, Nely cystitis, diverticulitis, hepatitis, colitis, UTI, PID, TOA, pyelonephritis, prostatitis, epididymitis, meningitis, encephalitis, pulmonary embolism, CVA, thyroid storm, pancreatitis, adrenal crisis, cavernous sinus thrombosis, this is not meant to be an all-inclusive list. - Consultations Consultation #1: Spoke with [facility] who agrees to admit this patient Medical Decision Making - Medical Decision Making 74 male positive coronavirus positive COPD positive hypoxia symptoms improved with supportive care but patient will be admitted for continued supportive care and monitoring of oxygen - Lab Data Result diagrams: 08/19/24 19:16 08/19/24 19:16 Lab Results 08/19/24 08/19/24 08/19/24 Range/Units 19:16 19:16 19:16 WBC 14.56 H (4.50-10.00) 10*3/uL RBC 4.18 L (4.40-5.60) 10*6/uL Hgb 13.8 (13.0-17.0) g/dL Hct 41.4 (39.6-50.0) % MCV 99.0 H (80.0-97.0) fL MCH 33.0 H (27.0-32.0) pg MCHC 33.3 (32.0-37.0) g/dL Plt Count 153 (140-440) 10*3/uL MPV 11.0 (9.5-12.2) fL Immature Gran % (Auto) 0.8 % Neutrophils % 89.2 % Lymphocytes % 4.5 % Monocytes % 5.1 % Eosinophils % 0.1 % Basophils % 0.3 % Immature Gran # 0.11 H (0.00-0.04) 10*3/uL Neutrophils # 12.98 H (1.80-7.70) 10*3/uL Lymphocytes # 0.66 L (0.90-5.00) 10*3/uL Monocytes # 0.74 (0.20-1.00) 10*3/uL Eosinophils # 0.02 L (0.04-0.35) 10*3/uL Basophils # 0.05 (0.00-0.10) 10*3/uL PT 11.9 (10.0-12.5) sec INR 1.1 (<1.2) APTT 23.4 (22.0-30.0) sec D-Dimer 1.30 H (<0.60) mg/L FEU Sodium 135 L (137-145) mmol/L Potassium 4.2 (3.5-5.1) mmol/L Chloride 103 (98-107) mmol/L Carbon Dioxide 24 (22-30) mmol/L Anion Gap 8 mmol/L BUN 19 (9-20) mg/dL Creatinine 0.92 (0.66-1.25) mg/dL Est GFR (CKD-EPI)AfAm >90 (>60 ml/min/1.73 sqM) Est GFR (CKD-EPI)NonAf 81 (>60 ml/min/1.73 sqM) Glucose 127 H (74-99) mg/dL Plasma Lactic Acid Edgardo (0.7-2.0) mmol/L Calcium 7.8 L (8.4-10.2) mg/dL Magnesium 1.2 L (1.6-2.3) mg/dL Total Bilirubin 1.0 (0.2-1.3) mg/dL AST 122 H (17-59) U/L ALT 76 H (4-49) U/L Alkaline Phosphatase 94 (38-126) U/L Troponin I (0.000-0.034) ng/mL NT-Pro-B Natriuret Pep 106 pg/mL Total Protein 6.4 (6.3-8.2) g/dL Albumin 3.3 L (3.5-5.0) g/dL 08/19/24 08/19/24 Range/Units 19:16 19:16 WBC (4.50-10.00) 10*3/uL RBC (4.40-5.60) 10*6/uL Hgb (13.0-17.0) g/dL Hct (39.6-50.0) % MCV (80.0-97.0) fL MCH (27.0-32.0) pg MCHC (32.0-37.0) g/dL Plt Count (140-440) 10*3/uL MPV (9.5-12.2) fL Immature Gran % (Auto) % Neutrophils % % Lymphocytes % % Monocytes % % Eosinophils % % Basophils % % Immature Gran # (0.00-0.04) 10*3/uL Neutrophils # (1.80-7.70) 10*3/uL Lymphocytes # (0.90-5.00) 10*3/uL Monocytes # (0.20-1.00) 10*3/uL Eosinophils # (0.04-0.35) 10*3/uL Basophils # (0.00-0.10) 10*3/uL PT (10.0-12.5) sec INR (<1.2) APTT (22.0-30.0) sec D-Dimer (<0.60) mg/L FEU Sodium (137-145) mmol/L Potassium (3.5-5.1) mmol/L Chloride (98-107) mmol/L Carbon Dioxide (22-30) mmol/L Anion Gap mmol/L BUN (9-20) mg/dL Creatinine (0.66-1.25) mg/dL Est GFR (CKD-EPI)AfAm (>60 ml/min/1.73 sqM) Est GFR (CKD-EPI)NonAf (>60 ml/min/1.73 sqM) Glucose (74-99) mg/dL Plasma Lactic Acid Edgardo 2.5 H* (0.7-2.0) mmol/L Calcium (8.4-10.2) mg/dL Magnesium (1.6-2.3) mg/dL Total Bilirubin (0.2-1.3) mg/dL AST (17-59) U/L ALT (4-49) U/L Alkaline Phosphatase (38-126) U/L Troponin I 0.014 (0.000-0.034) ng/mL NT-Pro-B Natriuret Pep pg/mL Total Protein (6.3-8.2) g/dL Albumin (3.5-5.0) g/dL - EKG Data -: EKG Interpreted by Me (EKG is sinus 91 CO 166 QRS 99 QTc 422) - Radiology Data Radiology results: report reviewed (Chest x-ray is negative for acute disease), image reviewed Disposition Clinical Impression: Acute exacerbation of chronic obstructive pulmonary disease, Hypoxia, Coronavirus infection, Fever Disposition: ADMITTED IP TO THIS HOSP Condition: Serious Is patient prescribed a controlled substance at d/c from ED?: No Referrals: Tahmina Calvo MD [Primary Care Provider] - 1-2 days Time of Disposition: 20:00
[2024-08-19] MEDS: SODIUM CHLORIDE 0.9% 1,000 ML IV SCH ×2 (19:21→20:52)
[2024-08-19] MEDS: methylPREDNISolone SOD SUCCI 125 MG/2 ML VIAL IV STA (19:22)
[2024-08-19 19:33] LABS: Basophils # (A) 0.05 10*3/uL (0.00-0.10); Basophils % (A) 0.3 %; Eosinophils # (A) 0.02 10*3/uL (0.04-0.35); Eosinophils % (A) 0.1 %; HCT 41.4 % (39.6-50.0); HGB 13.8 g/dL (13.0-17.0); Lymphocytes # (A) 0.66 10*3/uL (0.90-5.00); Lymphocytes % (A) 4.5 %; MCHC 33.3 g/dL (32.0-37.0); Monocytes # (A) 0.74 10*3/uL (0.20-1.00); Monocytes % (A) 5.1 %; Neutrophils # (A) 12.98 10*3/uL (1.80-7.70); Neutrophils % (A) 89.2 %; Platelet Count 153 10*3/uL (140-440); RBC 4.18 10*6/uL (4.40-5.60); RDW 13.8 % (11.5-14.5); WBC 14.56 10*3/uL (4.50-10.00)
[2024-08-19 19:46] LABS: ALT 76 U/L (4-49); AST 122 U/L (17-59); African American GFR (CKD) >90 (>60 ml/min/1.73 sqM); Albumin 3.3 g/dL (3.5-5.0); Alkaline Phosphatase 94 U/L (38-126); Anion Gap 8 mmol/L; Blood Urea Nitrogen 19 mg/dL (9-20); Calcium 7.8 mg/dL (8.4-10.2); Carbon Dioxide 24 mmol/L (22-30); Chloride 103 mmol/L (98-107); Glucose 127 mg/dL (74-99); INR 1.1 (<1.2); Magnesium 1.2 mg/dL (1.6-2.3); Non-African American GFR(CKD) 81 (>60 ml/min/1.73 sqM); Partial Thromboplastin Time 23.4 sec (22.0-30.0); Potassium 4.2 mmol/L (3.5-5.1); Prothrombin Time 11.9 sec (10.0-12.5); Sodium 135 mmol/L (137-145); Total Protein 6.4 g/dL (6.3-8.2)
[2024-08-19] MEDS: ALBUTEROL HFA INHALER INHALATION STA (19:54)
[2024-08-19 19:55] LABS: NT-Pro-B-Type Natriuretic Pept 106 pg/mL
[2024-08-19] MEDS: ACETAMINOPHEN TAB 500 MG TAB PO STA (20:14)
[2024-08-19] MEDS ORDERED: MORPHINE SULFATE 4 MG/ML SYRINGE IV PRN (20:14)
[2024-08-19] MEDS: IBUPROFEN 800 MG TAB PO STA (20:14)
[2024-08-19] MEDS ORDERED: ONDANSETRON 4 MG/2 ML VIAL IVP PRN (20:14)
[2024-08-19] MEDS ORDERED: NALOXONE 0.4 MG/ML 1 ML VIAL IV PRN (20:14)
[2024-08-19] MEDS: KETOROLAC 15 MG/ML 1 ML VIAL IVP STA (20:14)
--- NOTE | 2024-08-19 20:28 | XR ---
EXAMINATION TYPE: XR chest 1V portable DATE OF EXAM: 08/19/2024 7:35 PM COMPARISON: Chest radiographs from 08/31/2019 CLINICAL INDICATION: Male, 74 years old with history of sob; [facility] TECHNIQUE: XR chest 1V portable Frontal view of the chest. FINDINGS: Lungs/Pleura: There is no evidence of pleural effusion, focal consolidation, or pneumothorax. Pulmonary vascularity: Unremarkable. Heart/mediastinum: Cardiomediastinal silhouette is unremarkable. Musculoskeletal: No acute osseous pathology. IMPRESSION: No acute cardiopulmonary disease/process. [facility], , 08/19/2024 8:26 PM
[2024-08-19] MEDS: MAGNESIUM SULFATE-D5W PMX 1 GM in DEXTROSE/WATER 1 100ML.BAG IVPB ONE (20:53)
[2024-08-19] MEDS: MAGNESIUM OXIDE 400 MG TAB PO STA ×2 (20:55)
--- NOTE | 2024-08-19 22:11 | CT ---
EXAMINATION TYPE: CT angio chest DATE OF EXAM: 08/19/2024 9:52 PM COMPARISON: 01/18/2017 CLINICAL INDICATION: Male, 74 years old with history of PE; Pt states increase GARRETT for over 1 week.Pt states increase GARRETT for over 1 week. TECHNIQUE/CONTRAST: CTA scan of the thorax is performed with IV Contrast, patient injected with 100 ml mL of Isovue 370, MIP images are created and reviewed these are created on a separate workstation.. CT DLP: 774 mGycm, Automated exposure control for dose reduction was used. FINDINGS: Lungs/Pleura: No evidence of focal consolidation, pleural effusion or pneumothorax. Airway: Large airways are patent. Heart: Size within normal limits. No significant coronary artery calcifications. Vasculature: There is no evidence for a filling defect within the pulmonary vasculature to suggest ac [place] pulmonary embolism. The pulmonary artery is of normal size. Mediastinum: No gross evidence of adenopathy. Musculoskeletal: Moderate disc degeneration changes are present throughout the thoracolumbar spine se condary to osteophyte formation and facet joint arthropathy. Soft Tissues/lymph nodes: Unremarkable. Lower neck: No significant findings. Upper Abdomen: No significant findings. IMPRESSION: 1. No evidence of pulmonary embolism. 2. No evidence for acute thoracic process. Follow up recommendations for incidental pulmonary nodules, if there are any, are per [employer] [place] [employer] [employer] or [employer]. https://radiopaedia.org/articles/hclbklqduv-mewilve-pqxrurfuo-mmvamr-[email or web address]-[email or web address]?lang=us [facility], , 08/19/2024 10:08 PM
[2024-08-19] MEDS: SODIUM CHLORIDE 0.9% 500 ML 500 ML IV ONE (22:56)
[2024-08-19] MEDS: SODIUM CHLORIDE 0.9% 1,000 ML IV ONE (22:56)
[2024-08-20] MEDS: SODIUM CHLORIDE 0.9% 1,000 ML IV ONE (02:20)
[2024-08-20] MEDS: cefTRIAXone 2 GM in DEXTROSE 5% IN WATER 50 ML IVPB SCH (02:56)
[2024-08-20 08:21] LABS: Basophils # (A) 0.03 X 10*3/uL (0.00-0.10); Basophils % (A) 0.2 %; Eosinophils # (A) 0 X 10*3/uL (0.04-0.35); Eosinophils % (A) 0 %; HCT 41.3 % (39.6-50.0); HGB 13.1 g/dL (13.0-17.0); Lymphocytes # (A) 0.48 X 10*3/uL (0.90-5.00); Lymphocytes % (A) 2.9 %; MCH 32.8 pg (27.0-32.0); MCHC 31.7 g/dL (32.0-37.0); MCV 103.3 FL (80.0-97.0); Mean Platelet Volume 10.9 FL (9.5-12.2); Monocytes # (A) 0.25 X 10*3/uL (0.20-1.00); Monocytes % (A) 1.5 %; NRBC Per 100 WBC 0 X 10*3/uL (0.00-0.01); Neutrophils # (A) 15.89 X 10*3/uL (1.80-7.70); Neutrophils % (A) 94.5 %; Platelet Count 134 X 10*3/uL (140-440)
[2024-08-20 08:44] LABS: ALT 70 U/L (10-49); AST 91 U/L (14-35); Albumin 3.1 g/dL (3.8-4.9); Albumin/Globulin Ratio 1.24 Ratio (1.60-3.17); Alkaline Phosphatase 82 U/L (41-126); BUN/Creat Ratio 17.42 Ratio (12.00-20.00); Blood Urea Nitrogen 20.9 mg/dL (9.0-27.0); Calcium 7.6 mg/dL (8.7-10.3); Carbon Dioxide 18.7 mmol/L (21.6-31.8); Chloride 107 mmol/L (96-109); Globulin 2.5 g/dL (1.6-3.3); Glucose 275 mg/dL (70-110); Magnesium 1.8 mg/dL (1.5-2.4); Phosphorus 2.4 mg/dL (2.4-5.1); Potassium 4.2 mmol/L (3.5-5.5); Sodium 138 mmol/L (135-145); Total Bilirubin 0.5 mg/dL (0.3-1.2); Total Protein 5.6 g/dL (6.2-8.2)
[2024-08-20] MEDS ORDERED: NITROGLYCERIN SL TABS 0.4 MG TAB SUBLINGUAL PRN (09:19)
[2024-08-20] MEDS ORDERED: ALBUTEROL HFA INHALER INHALATION PRN (09:30)
[2024-08-20] MEDS: allopurinoL 300 MG TAB PO SCH (10:00)
[2024-08-20] MEDS: LEVOTHYROXINE 50 MCG TAB PO SCH (10:00)
[2024-08-20] MEDS: ASPIRIN 81 MG PO SCH (10:00)
[2024-08-20] MEDS: CHOLECALCIFEROL 125 MCG (5000 IU) TABLET PO SCH (10:00)
[2024-08-20] MEDS: MULTIVITAMINS, THERA 1 EACH TAB PO SCH (10:01)
[2024-08-20] MEDS: ASCORBIC ACID 500 MG TAB PO SCH (10:01)
[2024-08-20] MEDS: METOPROLOL TARTRATE 25 MG TAB PO SCH (10:01)
[2024-08-20] MEDS: ISOSORBIDE MONONITRATE ER 30 MG TAB.ER.24H PO SCH (10:01)
[2024-08-20] MEDS: EZETIMIBE 10 MG TAB PO SCH (10:01)
[2024-08-20] MEDS: ZINC SULFATE 220 MG CAP PO SCH (10:01)
[2024-08-20] MEDS: PANTOPRAZOLE 40 MG TABLET PO SCH (10:07)
[2024-08-20] MEDS: ENOXAPARIN 60 MG/0.6 ML SYRINGE SQ SCH (10:55)
[2024-08-20] MEDS: ALBUTEROL HFA INHALER INHALATION SCH (12:08)
[2024-08-20] MEDS: SYMBICORT 160-4.5 MCG INHALER INHALATION SCH (12:08)
[2024-08-20] MEDS ORDERED: DEXTROSE 50% SYRINGE 50 ML IVP PRN ×2 (13:20)
[2024-08-20] MEDS: predniSONE 20 MG TAB PO SCH (13:27)
--- NOTE | 2024-08-20 15:47 | P.HPIM ---
History of Present Illness H&P Date: 08/20/24 This is a pleasant 74-year-old male who follows with Dr. Calvo in the outpatient setting and presented to the emergency department via EMS with increasing shortness of breath, hypoxia, recently reported diagnosis of COPD and scheduled to follow-up with Dr. Chauhan outpatient who was also found to be COVID-positive taking an at home test on Monday. Patient reports he started experiencing increasing shortness of breath and cough with fevers Monday evening which prompted him to taking this test. Patient denies being around any sick contacts. Patient also reports to having a past medical history of asthma, recent COPD diagnosis, diabetes mellitus, DVT, hyperlipidemia, hypertension, p ulmonary embolism with history of previous arrhythmia and trigeminal neuralgia and nonalcoholic fatty liver disease. Patient has had previous heart catheterization with stents most recently in 2020. Patient is a former smoker and denies any other illicit drug use and very rarely drinks an alcoholic beverage. Labs on admission revealed an elevated white count of 14.56, hemoglobin 13.8, platelets 153, sodium 135, potassium 4.2, BUN 19, creatinine 0.92, lactic acid was 2.8, magnesium was low at 1.2, AST 122 with an ALT of 76, troponin was 0.014, BNP 106. COVID, influenza, RSV testing was not done in the ER and COVID testing was positive with an in-home test. Chest x-ray revealed no acute cardiopulmonary disease or process, patient underwent CTA with no evidence of PE and no evidence of acute thoracic process. EKG shows sinus rhythm. Patient was admitted for COPD with hypoxia and COVID infection. Patient currently on 2 to 3 L and reports does not wear oxygen outpatient REVIEW OF SYSTEMS: CONSTITUTIONAL: Reports having fever prior to hospitalization, no malaise, no fatigue. Reports of increased anxiety HEENT: No recent visual problems or hearing problems. Denied any sore throat. CARDIOVASCULAR: No chest pain, orthopnea, PND, no palpitations, no syncope. PULMONARY: Reports persistent shortness of breath especially with minimal exertion, dry cough, no hemoptysis. GASTROINTESTINAL: No diarrhea, reports of nausea, no vomiting, no abdominal pain. NEUROLOGICAL: No headaches, no weakness, no numbness. HEMATOLOGICAL: Denies any bleeding or petechiae. GENITOURINARY: Denies any burning micturition, frequency, or urgency. MUSCULOSKELETAL/RHEUMATOLOGICAL: Denies any joint pain, swelling, or any muscle pain. ENDOCRINE: Denies any polyuria or polydipsia. The rest of the 14-point review of systems is negative. PHYSICAL EXAMINATION: GENERAL: The patient is alert and oriented x3, not in any acute distress. Well developed, well nourished. HEENT: Pupils are round and equally reacting to light. EOMI. No scleral icterus. No conjunctival pallor. Normocephalic, atraumatic. No pharyngeal erythema. No thyromegaly. CARDIOVASCULAR: S1 and S2 present. No murmurs, rubs, or gallops. PULMONARY: Chest is clear to auscultation, no wheezing or crackles. ABDOMEN: Soft, nontender, nondistended, normoactive bowel sounds. No palpable organomegaly. MUSCULOSKELETAL: No joint swelling or deformity. EXTREMITIES: No cyanosis, clubbing, or pedal edema. NEUROLOGICAL: Gross neurological examination did not reveal any focal deficits. SKIN: No rashes. Assessment: Shortness of breath, multifactorial with acute hypoxic respiratory failure, secondary to COPD acute exacerbation as well as COVID-19 infection Recently diagnosed COPD awaiting to follow-up with pulmonary in the office Lactic acidosis secondary to acute COVID-19 infection as well as COPD exacerbation, improved after gentle hydration COVID-19 infection, positive with at home test, low-grade temps with cough and congestion on admission History of asthma Diabetes mellitus, type II, uncontrolled with hyperglycemia, possibly steroid effect History of DVT and PE, not on any anticoagulation Hyperlipidemia Hypomagnesemia, 1.2 on admission, improved after replacement Hypertension History of trigeminal neuralgia History of nonalcoholic fatty liver disease Former smoker, quit in 1976 Obesity with a BMI 39.9 GI prophylaxis DVT prophylaxis Full code Plan: Patient was admitted for COPD exacerbation with noted hypoxia and home testing positive for COVID-19 Patient reports low-grade temps with cough and congestion prior to hospitalization and symptoms started around Monday evening and tested on Monday and was positive for COVID. No other sick contacts in the home Patient is scheduled to follow-up in the outpatient setting with pulmonary for establishment and per family at the bedside his appointment is not until September Monitor for increased anxiety as patient's family is reporting he has not handling his newly diagnosis of COPD very well and having extreme anxiety and increasing shortness of breath and mild panic attacks Continue monitoring Accu-Cheks AC and at bedtime and will adjust insulins a ccordingly Patient to continue on inhalers along with vitamin, zinc supplements. Continue Lovenox and will add prednisone oral taper. Consult to pulmonary and appreciate input and recommendations Wean FiO2 as tolerated. Will assess for home O2 prior to discharge Encourage incentive spirometer use at least 10 times every hour while awake Encouraged increase activity as tolerated Possible discharge planning in the next 24 to 48 hours The impression and plan of care has been dictated by Ale Kapoor, Nurse Practitioner as directed. Dr. Nu MD I have performed a history and examination and MDM of this patient, discussed the same with the dictator, and agree with the dictator's assessment and plan as written ,documented as a scribe. Based on total visit time, I have performed more than 50% of the visit. Past Medical History Past Medical History: Asthma, COPD, Diabetes Mellitus, Deep Vein Thrombosis (DVT), Hyperlipidemia, Hypertension, Pulmonary Embolus (PE) Additional Past Medical History / Comment(s): Hx. of arrhythmia; trigeminal neuralgia, SOB, non- alcoholic fatty liver disease History of Any Multi-Drug Resistant Organisms: None Reported Past Surgical History: Heart Catheterization With Stent, Orthopedic Surgery, Tonsillectomy Additional Past Surgical History / Comment(s): arthroscopy both knee. quad tendon surgery right knee, COLONOSCOPY, stent in RCA 2020 Past Anesthesia/Blood Transfusion Reactions: No Reported Reaction Date of Last Stent Placement:: 2020 Past Psychological History: No Psychological Hx Reported Smoking Status: Former smoker Past Alcohol Use History: None Reported Past Drug Use History: None Reported - Past Family History Father Family Medical History: Renal Disease Additional Family Medical History / Comment(s): Father from kidney failure, lung problems Mother Family Medical History: Cancer, Myocardial Infarction ([place]) Additional Family Medical History / Comment(s): Mother and siblings had heart attacks, mom from Alzheimers complications Brother(s) Family Medical History: Deep Vein Thrombosis (DVT) Medications and Allergies Home Medications Medication Instructions Recorded Confirmed Type allopurinoL [Zyloprim] 300 mg PO DAILY 01/02/16 08/19/24 History Metoprolol Tartrate [Lopressor] 25 mg PO DAILY 01/26/17 08/19/24 History Levothyroxine Sodium [Synthroid] 50 mcg PO DAILY 02/27/19 08/19/24 History Multivitamins, Thera [Multivitamin 1 tab PO DAILY 02/27/19 08/19/24 History (formulary)] Furosemide [Lasix] 20 mg PO DAILY 08/31/19 08/19/24 History Aspirin [Adult Low Dose Aspirin EC] 81 mg PO DAILY 08/27/21 08/19/24 History Fluticasone Propion/Salmeterol 1 puff INHALATION RT-BID 08/27/21 08/19/24 History [Wixela 250-50 Inhub] Montelukast [Singulair] 10 mg PO HS 08/27/21 08/19/24 History Omeprazole 20 mg PO DAILY 08/27/21 08/19/24 History metFORMIN HCL [Glucophage] 500 mg PO BID 08/27/21 08/19/24 History Isosorbide Mononitrate [Isosorbide 30 mg PO DAILY 08/31/21 08/19/24 History Mononitrate ER] Nitroglycerin Sl Tabs [Nitrostat] 0.4 mg SUBLINGUAL Q5M PRN #25 tab 08/31/21 08/19/24 Rx Ezetimibe [Zetia] 10 mg PO DAILY 03/21/23 08/19/24 History Atorvastatin [Lipitor] 80 mg PO HS 08/19/24 08/19/24 History Allergies Allergy/AdvReac Type Severity Reaction Status Date / Time Penicillins Allergy Unknown Verified 08/19/24 20:43 Childhood Sulfa (Sulfonamide Allergy Rash/Hives Verified 08/19/24 20:43 Antibiotics) Physical Exam Vitals: Vital Signs Temp Pulse Resp BP Pulse Ox 08/20/24 08:28 97.4 F L 76 20 111/64 95 08/20/24 06:08 97.5 F L 70 17 97/49 96 08/20/24 03:07 68 17 92 L 08/20/24 01:36 97.5 F L 71 17 119/43 94 L 08/19/24 21:54 99.4 F 08/19/24 21:37 24 08/19/24 20:50 100.5 F H 95 24 133/61 91 L 08/19/24 18:53 100.8 F H 89 16 150/58 90 L Intake and Output 08/19/24 08/20/24 08/20/24 22:59 06:59 14:59 Other: Weight 126.099 kg Results CBC & Chem 7: 08/20/24 02:40 08/20/24 02:40 Labs: Abnormal Lab Results - Last 24 Hours (Table) 08/19/24 08/19/24 08/19/24 Range/Units 19:16 19:16 19:16 WBC 14.56 H (4.50-10.00) 10*3/uL RBC 4.18 L (4.40-5.60) 10*6/uL MCV 99.0 H (80.0-97.0) fL MCH 33.0 H (27.0-32.0) pg MCHC (32.0-37.0) g/dL Plt Count (140-440) X 10*3/uL Immature Gran # 0.11 H (0.00-0.04) 10*3/uL Neutrophils # 12.98 H (1.80-7.70) 10*3/uL Lymphocytes # 0.66 L (0.90-5.00) 10*3/uL Eosinophils # 0.02 L (0.04-0.35) 10*3/uL D-Dimer 1.30 H (<0.60) mg/L FEU Sodium 135 L (137-145) mmol/L Carbon Dioxide (21.6-31.8) mmol/L Anion Gap (4.00-12.00) mmol/L Glucose 127 H (74-99) mg/dL Plasma Lactic Acid Edgardo (0.7-2.0) mmol/L Calcium 7.8 L (8.4-10.2) mg/dL Magnesium 1.2 L (1.6-2.3) mg/dL AST 122 H (17-59) U/L ALT 76 H (4-49) U/L Total Protein (6.2-8.2) g/dL Albumin 3.3 L (3.5-5.0) g/dL Albumin/Globulin Ratio (1.60-3.17) Ratio 08/19/24 08/19/24 08/20/24 Range/Units 19:16 22:00 00:05 WBC (4.50-10.00) 10*3/uL RBC (4.40-5.60) 10*6/uL MCV (80.0-97.0) fL MCH (27.0-32.0) pg MCHC (32.0-37.0) g/dL Plt Count (140-440) X 10*3/uL Immature Gran # (0.00-0.04) 10*3/uL Neutrophils # (1.80-7.70) 10*3/uL Lymphocytes # (0.90-5.00) 10*3/uL Eosinophils # (0.04-0.35) 10*3/uL D-Dimer (<0.60) mg/L FEU Sodium (137-145) mmol/L Carbon Dioxide (21.6-31.8) mmol/L Anion Gap (4.00-12.00) mmol/L Glucose (74-99) mg/dL Plasma Lactic Acid Edgardo 2.5 H* 2.8 H* 2.9 H* (0.7-2.0) mmol/L Calcium (8.4-10.2) mg/dL Magnesium (1.6-2.3) mg/dL AST (17-59) U/L ALT (4-49) U/L Total Protein (6.2-8.2) g/dL Albumin (3.5-5.0) g/dL Albumin/Globulin Ratio (1.60-3.17) Ratio 08/20/24 08/20/24 08/20/24 Range/Units 02:40 02:40 02:43 WBC 16.80 H (4.50-10.00) 10*3/uL RBC 4.00 L (4.40-5.60) 10*6/uL MCV 103.3 H (80.0-97.0) fL MCH 32.8 H (27.0-32.0) pg MCHC 31.7 L (32.0-37.0) g/dL Plt Count 134 L (140-440) X 10*3/uL Immature Gran # 0.15 H (0.00-0.04) 10*3/uL Neutrophils # 15.89 H (1.80-7.70) 10*3/uL Lymphocytes # 0.48 L (0.90-5.00) 10*3/uL Eosinophils # 0 L (0.04-0.35) 10*3/uL D-Dimer (<0.60) mg/L FEU Sodium (137-145) mmol/L Carbon Dioxide 18.7 L (21.6-31.8) mmol/L Anion Gap 12.30 H (4.00-12.00) mmol/L Glucose 275 H (74-99) mg/dL Plasma Lactic Acid Edgardo 2.6 H* (0.7-2.0) mmol/L Calcium 7.6 L (8.4-10.2) mg/dL Magnesium (1.6-2.3) mg/dL AST 91 H (17-59) U/L ALT 70 H (4-49) U/L Total Protein 5.6 L (6.2-8.2) g/dL Albumin 3.1 L (3.5-5.0) g/dL Albumin/Globulin Ratio 1.24 L (1.60-3.17) Ratio
[2024-08-20 16:46] LABS: Glucose,Whole Blood 285 mg/dL (70-110)
[2024-08-20] MEDS: INSULIN LISPRO (HumaLOG) 100 UNIT/ML 10 mL VL SQ SCH (16:54)
[2024-08-20] MEDS ORDERED: NON FORMULARY DRUG (Fluticasone Propion/Salmeterol [Wixela 250-50 Inhub] 1 EACH Blst.W.Dev INHALATION SCH (20:00)
[2024-08-20 20:25] LABS: Glucose,Whole Blood 322 mg/dL (70-110)
[2024-08-20] MEDS: MONTELUKAST 10 MG TAB PO SCH (20:56)
[2024-08-20] MEDS: ATORVASTATIN 80 MG TAB PO SCH (20:57)
--- NOTE | 2024-08-21 03:13 | P.CNPUL ---
History of Present Illness Consult date: 08/21/24 Requesting physician: Ale Kapoor Reason for consult: COPD (COVID), other Chief complaint: Shortness of breath, cough History of present illness: Patient is a 74-year-old male with past medical history significant for asthma/COPD, DVT/PE, hypertension, hyperlipidemia, diabetes mellitus, CAD with previous PCI/stent, and former tobacco smoker. His primary care provider is Dr. Calvo. Starting Monday, developed a combination of fever, minimally productive cough, and difficulty in breathing. Associated nausea, dry heaves, and poor appetite. and daughter were sick with similar symptoms. Did take a home COVID test on Monday which was reportedly positive. States she has had a previous COVID vaccination, but not up-to-date. Presented the emergency department on 08/19/2024 due to increased work of breathing. Chest x-ray did not show any acute cardiopulmonary process or focal infiltrates concerning for pneumonia. Chest CTA did not show any evidence of pulmonary embolism or acute parenchymal process. CBC: WBC count 16.8, hemoglobin 13, platelets 134. CMP with sodium 138, potassium 4.2, chloride 107, serum bicarb 18, BUN 21, creatinine 1.2, glucose 275. Lactic was 2.6 and down to 1.5. Magnesium 1.8. LFTs unremarkable. Patient currently being seen on the general medical floor. He is on 2 L/min nasal cannula. Not in any particular respiratory distress. He does have history of asthma/COPD. Not oxygen dependent at baseline. Uses combination of Wixela maintenance inhaler as well as albuterol rescue inhaler as needed while at home. Remote history of tobacco use, quitting in 1969. Endorses the above-mentioned symptoms. Fevers have subsided. He is tolerating oral food and fluids. Denies any chest pain, heart palpitations, syncopal events, orthopnea, PND, lower extremity edema. Currently, on a combination of Symbicort inhaler, albuterol inhaler 4 times daily, and oral prednisone 40 mg daily. Vital signs: Temperature 97.6 F, heart rate 79 bpm, blood pressure 150/71 mmHg, SpO2 recorded at 95% on 2 L/min nasal cannula. Review of Systems Constitutional: Reports chills, Reports fatigue, Reports fever, Reports poor appetite, Denies night sweats, Denies weight gain, Denies weight loss Ears, nose, mouth and throat: Reports nasal congestion, Reports post-nasal drip, Reports sore throat, Denies headache, Denies nasal discharge, Denies sinus pain, Denies sinus pressure Cardiovascular: Reports dyspnea on exertion, Denies chest pain, Denies leg edema, Denies lightheadedness, Denies orthopnea, Denies palpitations, Denies paroxysmal nocturnal dyspnea, Denies syncope Respiratory: Reports congestion, Reports cough with sputum (Normal yellow sputum production), Reports dyspnea, Reports wheezing, Denies excessive sputum, Denies hemoptysis, Denies pain on inspiration Gastrointestinal: Reports nausea (Subsided), Denies abdominal pain, Denies change in bowel habits, Denies diarrhea, Denies hematemesis, Denies vomiting Genitourinary: Denies dysuria Musculoskeletal: Denies limitation of motion Integumentary: Denies rash Neurological: Denies head injury, Denies headaches, Denies seizures, Denies syncope Psychiatric: Denies anxiety, Denies depression Past Medical History Past Medical History: Asthma, COPD, Diabetes Mellitus, Deep Vein Thrombosis (DVT), Hyperlipidemia, Hypertension, Pulmonary Embolus (PE) Additional Past Medical History / Comment(s): Hx. of arrhythmia; trigeminal neuralgia, SOB, non- alcoholic fatty liver disease History of Any Multi-Drug Resistant Organisms: None Reported Past Surgical History: Heart Catheterization With Stent, Orthopedic Surgery, Tonsillectomy Additional Past Surgical History / Comment(s): arthroscopy both knee. quad tendon surgery right knee, COLONOSCOPY, stent in RCA 2020 Past Anesthesia/Blood Transfusion Reactions: No Reported Reaction Date of Last Stent Placement:: 2020 Past Psychological History: No Psychological Hx Reported Smoking Status: Former smoker Past Alcohol Use History: None Reported Past Drug Use History: None Reported - Past Family History Father Family Medical History: Renal Disease Additional Family Medical History / Comment(s): Father from kidney failure, lung problems Mother Family Medical History: Cancer, Myocardial Infarction ([place]) Additional Family Medical History / Comment(s): Mother and siblings had heart attacks, mom from Alzheimers complications Brother(s) Family Medical History: Deep Vein Thrombosis (DVT) Medications and Allergies Home Medications Medication Instructions Recorded Confirmed Type allopurinoL [Zyloprim] 300 mg PO DAILY 01/02/16 08/19/24 History Metoprolol Tartrate [Lopressor] 25 mg PO DAILY 01/26/17 08/19/24 History Levothyroxine Sodium [Synthroid] 50 mcg PO DAILY 02/27/19 08/19/24 History Multivitamins, Thera [Multivitamin 1 tab PO DAILY 02/27/19 08/19/24 History (formulary)] Furosemide [Lasix] 20 mg PO DAILY 08/31/19 08/19/24 History Aspirin [Adult Low Dose Aspirin EC] 81 mg PO DAILY 08/27/21 08/19/24 History Fluticasone Propion/Salmeterol 1 puff INHALATION RT-BID 08/27/21 08/19/24 History [Wixela 250-50 Inhub] Montelukast [Singulair] 10 mg PO HS 08/27/21 08/19/24 History Omeprazole 20 mg PO DAILY 08/27/21 08/19/24 History metFORMIN HCL [Glucophage] 500 mg PO BID 08/27/21 08/19/24 History Isosorbide Mononitrate [Isosorbide 30 mg PO DAILY 08/31/21 08/19/24 History Mononitrate ER] Nitroglycerin Sl Tabs [Nitrostat] 0.4 mg SUBLINGUAL Q5M PRN #25 tab 08/31/21 08/19/24 Rx Ezetimibe [Zetia] 10 mg PO DAILY 03/21/23 08/19/24 History Atorvastatin [Lipitor] 80 mg PO HS 08/19/24 08/19/24 History Albuterol Inhaler [Ventolin Hfa 2 puff INHALATION RT-QID 30 Days 08/21/24 Rx Inhaler] #1 each Albuterol Inhaler [Ventolin Hfa 2 puff INHALATION RT-QID PRN each 08/21/24 Rx Inhaler] Ascorbic Acid [Vitamin C] 1,000 mg PO DAILY #60 tab 08/21/24 Rx Budesonide-Formot 160-4.5 Mcg 2 puff INHALATION RT-BID 30 Days 08/21/24 Rx [Symbicort 160-4.5 Mcg Inhaler] #1 each Cholecalciferol [Vitamin D3 (125 125 mcg PO DAILY #30 tab 08/21/24 Rx Mcg = 5000 Iu)] Zinc Sulfate [Orazinc] 220 mg PO DAILY 15 Days #15 cap 08/21/24 Rx predniSONE See Taper PO DIRECTED #30 tab 08/21/24 Rx Allergies Allergy/AdvReac Type Severity Reaction Status Date / Time Penicillins Allergy Unknown Verified 08/19/24 20:43 Childhood Sulfa (Sulfonamide Allergy Rash/Hives Verified 08/19/24 20:43 Antibiotics) Physical Exam Vitals: Vital Signs Temp Pulse Pulse Resp BP BP Pulse Ox 08/21/24 00:24 97.6 F 79 150/71 95 08/20/24 19:09 97.7 F 71 19 151/68 97 08/20/24 14:20 97.6 F 63 18 113/64 93 L 08/20/24 12:11 95 08/20/24 09:02 97.7 F 74 18 157/70 94 L 08/20/24 08:28 97.4 F L 76 20 111/64 95 08/20/24 06:08 97.5 F L 70 17 97/49 96 08/20/24 03:07 68 17 92 L Intake and Output 08/20/24 08/20/24 08/21/24 14:59 22:59 06:59 Other: Voiding Method Toilet # Voids 1 1 # Bowel Movements 1 Weight 126.099 kg GENERAL EXAM: Alert, 74-year-old obese male, comfortable in no apparent distress. HEAD: Normocephalic and atraumatic EYES: Normal reaction of pupils, equal size. NOSE: Clear with pink turbinates. THROAT: No erythema or exudates. NECK: No masses, no JVD. CHEST: No chest wall deformity. LUNGS: Equal air entry with no crackles, wheeze, rhonchi or dullness. On 2 L/mi n nasal cannula. No conversational dyspnea or accessory muscle use.. CVS: S1 and S2 normal with no audible murmur, regular rhythm. No extra heart sounds ABDOMEN: No hepatosplenomegaly, active bowel sounds, no guarding or rigidity. SPINE: No scoliosis or deformity SKIN: No rashes CENTRAL NERVOUS SYSTEM: No focal deficits, tone is normal in all 4 extremities. EXTREMITIES: There is no peripheral edema, clubbing, or cyanosis. Peripheral pulses are intact. Results - Laboratory Findings CBC and BMP: 08/20/24 02:40 08/20/24 02:40 PT/INR, D-dimer PT 11.9 sec (10.0-12.5) 08/19/24 19:16 INR 1.1 (<1.2) 08/19/24 19:16 D-Dimer 1.30 mg/L FEU (<0.60) H 08/19/24 19:16 Abnormal lab findings: Abnormal Labs 08/19/24 08/19/24 08/19/24 19:16 19:16 19:16 WBC 14.56 H RBC 4.18 L MCV 99.0 H MCH 33.0 H MCHC Plt Count Immature Gran # 0.11 H Neutrophils # 12.98 H Lymphocytes # 0.66 L Eosinophils # 0.02 L D-Dimer 1.30 H Sodium 135 L Carbon Dioxide Anion Gap Glucose 127 H POC Glucose (mg/dL) Plasma Lactic Acid Edgardo Calcium 7.8 L Magnesium 1.2 L AST 122 H ALT 76 H Total Protein Albumin 3.3 L Albumin/Globulin Ratio 08/19/24 08/19/24 08/20/24 19:16 22:00 00:05 WBC RBC MCV MCH MCHC Plt Count Immature Gran # Neutrophils # Lymphocytes # Eosinophils # D-Dimer Sodium Carbon Dioxide Anion Gap Glucose POC Glucose (mg/dL) Plasma Lactic Acid Edgardo 2.5 H* 2.8 H* 2.9 H* Calcium Magnesium AST ALT Total Protein Albumin Albumin/Globulin Ratio 08/20/24 08/20/24 08/20/24 02:40 02:40 02:43 WBC 16.80 H RBC 4.00 L MCV 103.3 H MCH 32.8 H MCHC 31.7 L Plt Count 134 L Immature Gran # 0.15 H Neutrophils # 15.89 H Lymphocytes # 0.48 L Eosinophils # 0 L D-Dimer Sodium Carbon Dioxide 18.7 L Anion Gap 12.30 H Glucose 275 H POC Glucose (mg/dL) Plasma Lactic Acid Edgardo 2.6 H* Calcium 7.6 L Magnesium AST 91 H ALT 70 H Total Protein 5.6 L Albumin 3.1 L Albumin/Globulin Ratio 1.24 L 08/20/24 08/20/24 16:44 20:24 WBC RBC MCV MCH MCHC Plt Count Immature Gran # Neutrophils # Lymphocytes # Eosinophils # D-Dimer Sodium Carbon Dioxide Anion Gap Glucose POC Glucose (mg/dL) 285 H 322 H Plasma Lactic Acid Edgardo Calcium Magnesium AST ALT Total Protein Albumin Albumin/Globulin Ratio - Diagnostic Findings Chest x-ray: image reviewed CT scan - chest: image reviewed Assessment and Plan Assessment: Acute COVID-19 infection, without evidence of COVID-19 pneumonia, reportedly tested positive with home test Acute COPD/asthma exacerbation, secondary to above Acute hypoxemic respiratory failure, currently on 2 L/min nasal cannula History of DVT/PE Hypertension History of hyperlipidemia History of CAD with previous PCI/stent to the RCA Diabetes mellitus type 2 Hypothyroidism GERD Obesity, with a BMI of 39.9 kg/m Former tobacco use Plan: Patient's medications, labs, imaging reviewed Chest CT angiogram did not show any evidence of pulmonary embolism, no acute parenchymal process was noted. Obtain COVID PCR Continue supportive care Currently on supplemental oxygen, 2 L/min nasal cannula, wean as tolerated Previously started on a combination of Symbicort inhaler, albuterol inhaler [id number], and oral prednisone. Reportedly has new patient appointment in the pulmonary office September, Blood glucose control per admitting DVT prophylaxis: Lovenox GI prophylaxis: Protonix We will continue to follow I have personally seen and examined the patient, performed the documentation and the assessment and plan as written. Number of minutes spent on the visit:20\ On today's evaluation of 08/21/2024, the patient is being seen in the joint evaluation along with the nurse practitioner. This patient is coming in with some increased shortness of breath. He is known to have COPD/asthma and his disease has exacerbated because of an acute COVID-19 infection. The patient has been vaccinated in the past for COVID-19 and has received a total of 3 shots. No recent vaccination. No previous infection with COVID-19 in a patient is encountering his first infection with the virus. He is doing well. No specific complaints. He has improved over the past 24 hours and is currently on room air oxygen with a pulse ox of 95%. No chest pain. No fever. No chills. Hemodynamically stable. Reviewed the blood work and the patient was tachycardic 16.8 with a heme of 13.1 and a platelet count of 134. BUN is 20 with a creatinine of 1.2. Sodium levels at 138. The patient also had a CTA of the chest that showed no evidence of any pulmonary embolism. The patient has no acute cardiopulmonary process based on CAT scan findings. Will continue the same treatment for now. The patient is on Symbicort, albuterol HFA and a prednisone burst taper. Possible discharge either today over the next 24 hours. Time with Patient: Greater than 30
[2024-08-21 06:12] LABS: Glucose,Whole Blood 205 mg/dL (70-110)
[2024-08-21 07:42] LABS: Influenza A Not Detected (Not Detectd); Influenza B Not Detected (Not Detectd); RSV Not Detected (Not Detectd)
[2024-08-21 08:23] VITALS: BP 111/81; PULSE 78; TEMP 97.8
[2024-08-21 11:10] VITALS: RESP 18
[2024-08-21 11:33] LABS: Glucose,Whole Blood 226 mg/dL (70-110)
== END 2024-08-21 14:13 | disposition home or self-care (01) ==
LOC: EC 18:39 → INTOOBSV 20:15 → 4SSUR 20:15
PROVIDERS: ADMIT Hospitalist; ATTEND Hospitalist
DX: J44.1 Chronic obstructive pulmonary disease with (acute) exacerbation (principal); J96.01 Acute respiratory failure with hypoxia; U07.1 COVID-19; E11.65 Type 2 diabetes mellitus with hyperglycemia; E83.42 Hypomagnesemia; E87.20 Acidosis, unspecified; E66.9 Obesity, unspecified; E78.5 Hyperlipidemia, unspecified; I10 Essential (primary) hypertension; E03.9 Hypothyroidism, unspecified; I25.10 Atherosclerotic heart disease of native coronary artery without angina pectoris; K21.9 Gastro-esophageal reflux disease without esophagitis; K76.0 Fatty (change of) liver, not elsewhere classified; G50.0 Trigeminal neuralgia; Z79.51 Long term (current) use of inhaled steroids; Z79.82 Long term (current) use of aspirin; Z79.84 Long term (current) use of oral hypoglycemic drugs; Z79.890 Hormone replacement therapy; Z79.899 Other long term (current) drug therapy; Z86.711 Personal history of pulmonary embolism; Z86.718 Personal history of other venous thrombosis and embolism; Z87.891 Personal history of nicotine dependence; Z95.5 Presence of coronary angioplasty implant and graft; Z68.39 Body mass index [BMI] 39.0-39.9, adult; Z88.0 Allergy status to penicillin; Z88.2 Allergy status to sulfonamides
CPT/HCPCS: 96366 ×2; 96372 ×2; 96361 ×2; 96365; 96367; 96375; 99285; 36415; 94640 ×3; 94760; 93005; 85379; 83880; 80053 ×2; 83605 ×2; 83735 ×2; 84100; 84484; 85025 ×2; 85610; 85730; 87040; 83036; 87636; 71045; 71275; G0378 ×3; J0696 ×2; J1650 ×2; J3475; J1885; J7512 ×2; Q9967; J2919

== ENCOUNTER 2024-08-24 12:09 | Emergency (ER) | payer MEDICARE ==
[2024-08-24 12:16] VITALS: TEMP 98.2
--- NOTE | 2024-08-24 12:32 | ED ---
General Adult HPI - General Chief complaint: Shortness of Breath Stated complaint: SOB Time Seen by Provider: 08/24/24 12:18 Source: patient, RN notes reviewed Mode of arrival: ambulatory Limitations: no limitations - History of Present Illness Initial comments: Patient is a 74-year-old male present to the emergency department with concerns with cough. Patient was in the hospital recently with COVID and discharged 3 days ago. Since that time cough has increased. Dyspnea has improved. Patient does have some increasing of leg edema from chronic. No chest pain. No fevers. Patient did go to urgent care and was recommended to come to the emergency department. Patient does have history of asthma and COPD. - Related Data Home Medications Medication Instructions Recorded Confirmed allopurinoL [Zyloprim] 300 mg PO DAILY 01/02/16 08/19/24 Metoprolol Tartrate [Lopressor] 25 mg PO DAILY 01/26/17 08/19/24 Levothyroxine Sodium [Synthroid] 50 mcg PO DAILY 02/27/19 08/19/24 Multivitamins, Thera [Multivitamin 1 tab PO DAILY 02/27/19 08/19/24 (formulary)] Furosemide [Lasix] 20 mg PO DAILY 08/31/19 08/19/24 Aspirin [Adult Low Dose Aspirin EC] 81 mg PO DAILY 08/27/21 08/19/24 Fluticasone Propion/Salmeterol 1 puff INHALATION RT-BID 08/27/21 08/19/24 [Wixela 250-50 Inhub] Montelukast [Singulair] 10 mg PO HS 08/27/21 08/19/24 Omeprazole 20 mg PO DAILY 08/27/21 08/19/24 metFORMIN HCL [Glucophage] 500 mg PO BID 08/27/21 08/19/24 Isosorbide Mononitrate [Isosorbide 30 mg PO DAILY 08/31/21 08/19/24 Mononitrate ER] Ezetimibe [Zetia] 10 mg PO DAILY 03/21/23 08/19/24 Atorvastatin [Lipitor] 80 mg PO HS 08/19/24 08/19/24 Previous Rx's Medication Instructions Recorded Nitroglycerin Sl Tabs [Nitrostat] 0.4 mg SUBLINGUAL Q5M PRN #25 tab 08/31/21 Albuterol Inhaler [Ventolin Hfa 2 puff INHALATION RT-QID 30 Days 08/21/24 Inhaler] #1 each Albuterol Inhaler [Ventolin Hfa 2 puff INHALATION RT-QID PRN each 08/21/24 Inhaler] Ascorbic Acid [Vitamin C] 1,000 mg PO DAILY #60 tab 08/21/24 Budesonide-Formot 160-4.5 Mcg 2 puff INHALATION RT-BID 30 Days 08/21/24 [Symbicort 160-4.5 Mcg Inhaler] #1 each Cholecalciferol [Vitamin D3 (125 125 mcg PO DAILY #30 tab 08/21/24 Mcg = 5000 Iu)] Zinc Sulfate [Orazinc] 220 mg PO DAILY 15 Days #15 cap 08/21/24 predniSONE See Taper PO DIRECTED #30 tab 08/21/24 Benzonatate [Tessalon Perles] 100 mg PO TID PRN #30 capsule 08/24/24 Allergies Allergy/AdvReac Type Severity Reaction Status Date / Time Penicillins Allergy Unknown Verified 08/19/24 20:43 Childhood Sulfa (Sulfonamide Allergy Rash/Hives Verified 08/19/24 20:43 Antibiotics) sulfamethoxazole Allergy Rash/Hives Verified 08/24/24 12:16 [From Bactrim] trimethoprim [From Bactrim] Allergy Rash/Hives Verified 08/24/24 12:16 Review of Systems ROS Statement: Those systems with pertinent positive or pertinent negative responses have been documented in the HPI. ROS Other: All systems not noted in ROS Statement are negative. Constitutional: Denies: fever, chills Eyes: Denies: eye pain ENT: Denies: ear pain Respiratory: Reports: as per HPI, cough Cardiovascular: Reports: edema. Denies: chest pain Endocrine: Denies: fatigue Gastrointestinal: Denies: abdominal pain Past Medical History Past Medical History: Asthma, COPD, Diabetes Mellitus, Deep Vein Thrombosis (DVT), Hyperlipidemia, Hypertension, Pulmonary Embolus (PE) Additional Past Medical History / Comment(s): Hx. of arrhythmia; trigeminal neuralgia, SOB, non- alcoholic fatty liver disease History of Any Multi-Drug Resistant Organisms: None Reported Past Surgical History: Heart Catheterization With Stent, Orthopedic Surgery, Tonsillectomy Additional Past Surgical History / Comment(s): arthroscopy both knee. quad ten don surgery right knee, COLONOSCOPY, stent in RCA 2020 Past Anesthesia/Blood Transfusion Reactions: No Reported Reaction Date of Last Stent Placement:: 2020 Past Psychological History: No Psychological Hx Reported Smoking Status: Former smoker Past Alcohol Use History: None Reported Past Drug Use History: None Reported - Past Family History Father Family Medical History: Renal Disease Additional Family Medical History / Comment(s): Father from kidney failure, lung problems Mother Family Medical History: Cancer, Myocardial Infarction ([place]) Additional Family Medical History / Comment(s): Mother and siblings had heart attacks, mom from Alzheimers complications Brother(s) Family Medical History: Deep Vein Thrombosis (DVT) General Exam Limitations: no limitations General appearance: alert, in no apparent distress Head exam: Present: normocephalic Eye exam: Present: normal appearance Neck exam: Present: normal inspection Respiratory exam: Present: normal lung sounds bilaterally. Absent: respiratory distress, decreased breath sounds Cardiovascular Exam: Present: regular rate, normal rhythm GI/Abdominal exam: Present: soft. Absent: tenderness Extremities exam: Present: pedal edema. Absent: calf tenderness Neurological exam: Present: alert Psychiatric exam: Present: normal affect, normal mood Skin exam: Present: normal color Course Vital Signs 08/24/24 12:10 Temperature 98.2 F Pulse Rate 74 Respiratory 20 Rate Blood Pressure 159/76 O2 Sat by Pulse 94 L Oximetry EKG Findings - EKG Results: EKG: interpreted by NEVAD, sinus rhythm, normal axis, normal QRS, normal ST/T Medical Decision Making - Medical Decision Making Was pt. sent in by a medical professional or institution (TIFFANY Gandhi, ASSURANCE MANAGER INSURANCE, urgent care, hospital, or [place] [facility] care facility...) When possible be specific @ -Patient sent from urgent care Did you speak to anyone other than the patient for history (EMS, parent, family, police, friend...)? What history was obtained from this source @ - is present helps provide additional history including recent COVID disease Did you review nursing and triage notes (agree or disagree)? Why? @ -I reviewed and agree with nursing and triage notes Were old charts reviewed (outside hosp., previous admission, EMS record, old EKG, old radiological studies, urgent care reports/EKG's, [place] health care facility records)? Report findings @ -Previous admission reviewed Differential Diagnosis (chest pain, altered mental status, abdominal pain women, abdominal pain men, vaginal bleeding, weakness, fever, dyspnea, syncope, headache, dizziness, GI bleed, back pain, seizure, CVA, palpatations, mental health, musculoskeletal)? @ -Differential Dyspnea: Coronary syndrome, arrhythmia, tamponade, asthma, COPD, pulmonary embolism, pneumonia, pneumothorax, pulmonary effusion, anaphylaxis, diabetic ketoacidosis, flailed chest, pulmonary contusion, diaphragmatic rupture, anemia, neuromuscular, this is not meant to be an all-inclusive list. EKG interpreted by me (3pts min.). @ -As above X-rays interpreted by me (1pt min.). @ -Chest x-ray shows no acute process CT interpreted by me (1pt min.). @ -CT scan of the chest negative for pulmonary embolism U/S interpreted by me (1pt. min.). @ -Ultrasound extremities negative for DVT What testing was considered but not performed or refused? (CT, X-rays, U/S, labs)? Why? @ -None What meds were considered but not given or refused? Why? @ -None Did you discuss the management of the patient with other professionals (prof john i.e. , PA, ASSURANCE MANAGER INSURANCE, lab, RT, psych nurse, rn social work, scuba diving teacher, teacher, youth officer, machine adjuster leader case trim)? Give summary @ -No Was smoking cessation discussed for >3mins.? @ -No Was critical care preformed (if so, how long)? @ -No Were there social determinants of health that impacted care today? How? (Homelessness, low income, unemployed, alcoholism, drug addiction, transportation, low edu. Level, literacy, decrease access to med. care, correction, rehab)? @ -No Was there de-escalation of care discussed even if they declined (Discuss DNR or withdrawal of care, Hospice)? DNR status @ -No What co-morbidities impacted this encounter? (DM, HTN, Smoking, COPD, CAD, Cancer, CVA, ARF, Chemo, Hep., AIDS, mental health diagnosis, sleep apnea, morbid obesity)? @ -Recent COVID-19 infection Was patient admitted / discharged? Hospital course, mention meds given and route, prescriptions, significant lab abnormalities, going to OR and other pertinent info. @ -Patient presents with cough. Patient actually states dyspnea has improved. Evaluation otherwise unremarkable. Patient reevaluated and states he is feeling better and has not been coughing much since he has been here. Patient and rosendo be are updated on results and need for follow-up. Patient states he has inhalers at home however is receptive to Michelle Betts Undiagnosed new problem with uncertain prognosis? @ -No Drug Therapy requiring intensive monitoring for toxicity (Heparin, Nitro, Insulin, Cardizem)? @ -No Were any procedures done? @ -No Diagnosis/symptom? @ -Cough, COVID Acute, or Chronic, or Acute on Chronic? @ -Acute, acute Uncomplicated (without systemic symptoms) or Complicated (systemic symptoms)? @ -Default Side effects of treatment? @ -No Exacerbation, Progression, or Severe Exacerbation? @ -No Poses a threat to life or bodily function? How? (Chest pain, [place], [place], pneumonia, PE, COPD, DKA, ARF, appy, cholecystitis, CVA, Diverticulitis, Homicidal, Suicidal, threat to staff... and all critical care pts) @ -No - Lab Data Result diagrams: 08/24/24 12:30 08/24/24 12:30 Lab Results 08/24/24 08/24/24 08/24/24 Range/Units 12:30 12:30 12:30 WBC 7.93 (4.50-10.00) 10*3/uL RBC 3.98 L (4.40-5.60) 10*6/uL Hgb 13.1 (13.0-17.0) g/dL Hct 38.6 L (39.6-50.0) % MCV 97.0 (80.0-97.0) fL MCH 32.9 H (27.0-32.0) pg MCHC 33.9 (32.0-37.0) g/dL Plt Count 164 (140-440) 10*3/uL MPV 10.6 (9.5-12.2) fL Immature Gran % (Auto) 0.8 % Neutrophils % 84.4 % Lymphocytes % 8.4 % Monocytes % 6.2 % Eosinophils % 0.1 % Basophils % 0.1 % Immature Gran # 0.06 H (0.00-0.04) 10*3/uL Neutrophils # 6.69 (1.80-7.70) 10*3/uL Lymphocytes # 0.67 L (0.90-5.00) 10*3/uL Monocytes # 0.49 (0.20-1.00) 10*3/uL Eosinophils # 0.01 L (0.04-0.35) 10*3/uL Basophils # 0.01 (0.00-0.10) 10*3/uL PT 10.8 (10.0-12.5) sec INR 1.0 (<1.2) APTT 21.5 L (22.0-30.0) sec D-Dimer 1.44 H (<0.60) mg/L FEU Sodium 137 (137-145) mmol/L Potassium 3.9 (3.5-5.1) mmol/L Chloride 104 (98-107) mmol/L Carbon Dioxide 25 (22-30) mmol/L Anion Gap 8 mmol/L BUN 28 H (9-20) mg/dL Creatinine 0.91 (0.66-1.25) mg/dL Est GFR (CKD-EPI)AfAm >90 (>60 ml/min/1.73 sqM) Est GFR (CKD-EPI)NonAf 82 (>60 ml/min/1.73 sqM) Glucose 227 H (74-99) mg/dL Lactic Ac Sepsis Rflx Plasma Lactic Acid Edgardo (0.7-2.0) mmol/L Calcium 8.6 (8.4-10.2) mg/dL Magnesium 1.7 (1.6-2.3) mg/dL Total Bilirubin 0.8 (0.2-1.3) mg/dL AST 88 H (17-59) U/L ALT 78 H (4-49) U/L Alkaline Phosphatase 79 (38-126) U/L NT-Pro-B Natriuret Pep 320 pg/mL Total Protein 6.2 L (6.3-8.2) g/dL Albumin 3.4 L (3.5-5.0) g/dL 08/24/24 08/24/24 Range/Units 12:30 13:22 WBC (4.50-10.00) 10*3/uL RBC (4.40-5.60) 10*6/uL Hgb (13.0-17.0) g/dL Hct (39.6-50.0) % MCV (80.0-97.0) fL MCH (27.0-32.0) pg MCHC (32.0-37.0) g/dL Plt Count (140-440) 10*3/uL MPV (9.5-12.2) fL Immature Gran % (Auto) % Neutrophils % % Lymphocytes % % Monocytes % % Eosinophils % % Basophils % % Immature Gran # (0.00-0.04) 10*3/uL Neutrophils # (1.80-7.70) 10*3/uL Lymphocytes # (0.90-5.00) 10*3/uL Monocytes # (0.20-1.00) 10*3/uL Eosinophils # (0.04-0.35) 10*3/uL Basophils # (0.00-0.10) 10*3/uL PT (10.0-12.5) sec INR (<1.2) APTT (22.0-30.0) sec D-Dimer (<0.60) mg/L FEU Sodium (137-145) mmol/L Potassium (3.5-5.1) mmol/L Chloride (98-107) mmol/L Carbon Dioxide (22-30) mmol/L Anion Gap mmol/L BUN (9-20) mg/dL Creatinine (0.66-1.25) mg/dL Est GFR (CKD-EPI)AfAm (>60 ml/min/1.73 sqM) Est GFR (CKD-EPI)NonAf (>60 ml/min/1.73 sqM) Glucose (74-99) mg/dL Lactic Ac Sepsis Rflx Y Plasma Lactic Acid Edgardo 2.3 H* (0.7-2.0) mmol/L Calcium (8.4-10.2) mg/dL Magnesium (1.6-2.3) mg/dL Total Bilirubin (0.2-1.3) mg/dL AST (17-59) U/L ALT (4-49) U/L Alkaline Phosphatase (38-126) U/L NT-Pro-B Natriuret Pep pg/mL Total Protein (6.3-8.2) g/dL Albumin (3.5-5.0) g/dL Disposition Clinical Impression: Coronavirus infection, Cough Disposition: HOME SELF-CARE Condition: Stable Instructions (If sedation given, give patient instructions): Acute Cough (ED), COVID-19 (Coronavirus Disease 2019) (ED) Additional Instructions: Prescription sent to pharmacy. Please do follow-up with your primary care physician in the next day or 2 for recheck. Return for difficulty breathing, uncontrolled fevers, weakness, worsening or changing symptoms or other concerns. Prescriptions: Benzonatate [Tessalon Perles] 100 mg PO TID PRN #30 capsule PRN Reason: Cough Is patient prescribed a controlled substance at d/c from ED?: No Referrals: Tahmina Calvo MD [Primary Care Provider] - 1-2 days Time of Disposition: 15:32
[2024-08-24] MEDS: FUROSEMIDE 10 MG/ML 4 ML VIAL IV STA (12:54)
[2024-08-24 12:55] LABS: Basophils # (A) 0.01 10*3/uL (0.00-0.10); Basophils % (A) 0.1 %; Eosinophils # (A) 0.01 10*3/uL (0.04-0.35); Eosinophils % (A) 0.1 %; HCT 38.6 % (39.6-50.0); HGB 13.1 g/dL (13.0-17.0); Lymphocytes # (A) 0.67 10*3/uL (0.90-5.00); Lymphocytes % (A) 8.4 %; MCH 32.9 pg (27.0-32.0); MCHC 33.9 g/dL (32.0-37.0); Mean Platelet Volume 10.6 fL (9.5-12.2); Monocytes # (A) 0.49 10*3/uL (0.20-1.00); Monocytes % (A) 6.2 %; Neutrophils # (A) 6.69 10*3/uL (1.80-7.70); Neutrophils % (A) 84.4 %; Platelet Count 164 10*3/uL (140-440); RBC 3.98 10*6/uL (4.40-5.60); RDW 13.3 % (11.5-14.5); WBC 7.93 10*3/uL (4.50-10.00)
[2024-08-24 13:13] LABS: ALT 78 U/L (4-49); AST 88 U/L (17-59); African American GFR (CKD) >90 (>60 ml/min/1.73 sqM); Albumin 3.4 g/dL (3.5-5.0); Alkaline Phosphatase 79 U/L (38-126); Anion Gap 8 mmol/L; Blood Urea Nitrogen 28 mg/dL (9-20); Calcium 8.6 mg/dL (8.4-10.2); Carbon Dioxide 25 mmol/L (22-30); Chloride 104 mmol/L (98-107); Glucose 227 mg/dL (74-99); Magnesium 1.7 mg/dL (1.6-2.3); Non-African American GFR(CKD) 82 (>60 ml/min/1.73 sqM); Potassium 3.9 mmol/L (3.5-5.1); Sodium 137 mmol/L (137-145); Total Bilirubin 0.8 mg/dL (0.2-1.3); Total Protein 6.2 g/dL (6.3-8.2)
--- NOTE | 2024-08-24 13:14 | XR ---
EXAMINATION TYPE: XR chest 2V DATE OF EXAM: 08/24/2024 1:11 PM COMPARISON: Chest radiographs from 08/19/2024, CTA chest 08/19/2024 TECHNIQUE: XR chest 2V Frontal and lateral views of the chest. CLINICAL INDICATION:Male, 74 years old with history of difficulty breathing; FINDINGS: Lungs/Pleura: There is no evidence of pleural effusion, focal consolidation, or pneumothorax. Left b asilar linear atelectasis. Pulmonary vascularity: Unremarkable. Heart/mediastinum: Cardiomediastinal silhouette is unremarkable. Musculoskeletal: Multiple level degenerative disc disease changes seen throughout the spine. IMPRESSION: Left basilar linear atelectasis. [facility], , 08/24/2024 1:12 PM
[2024-08-24 13:21] LABS: NT-Pro-B-Type Natriuretic Pept 320 pg/mL
[2024-08-24 13:32] LABS: Prothrombin Time 10.8 sec (10.0-12.5)
[2024-08-24 13:37] LABS: Partial Thromboplastin Time 21.5 sec (22.0-30.0)
--- NOTE | 2024-08-24 14:08 | US ---
EXAMINATION TYPE: US venous doppler duplex LE BI DATE OF EXAM: 08/24/2024 2:01 PM COMPARISON: NONE CLINICAL INDICATION: Male, 74 years old with history of swelling; Covid, heparin shot, bilateral supe rficial vein ablation, Pain TECHNIQUE: The lower extremity deep venous system is examined utilizing real time linear array sonog lily with graded compression, color doppler sonography, and spectral doppler. SIDE PERFORMED: Bilateral FINDINGS: VESSELS IMAGED: Common Femoral Vein Deep Femoral Vein Greater Saphenous Vein *- right not seen Femoral Vein Popliteal Vein Small Saphenous Vein * Proximal Calf Veins (* superficial vessels) Right Leg: Negative for DVT, Color Doppler imaging shows patency of the vessels. Spectral waveforms are within normal limits. Left Leg: Negative for DVT, Color Doppler imaging shows patency of the vessels. Spectral waveforms a re within normal limits. IMPRESSION: No ultrasound evidence for deep venous thrombosis. [facility], , 08/24/2024 2:05 PM
--- NOTE | 2024-08-24 14:52 | CT ---
EXAMINATION TYPE: CT angio chest DATE OF EXAM: 08/24/2024 2:46 PM COMPARISON: None. CLINICAL INDICATION: Male, 74 years old with history of cj, CJ. RECNT COVID +. PRIOR ON PACS., TECHNIQUE: Axial CT was performed with sagittal and coronal reformats. 3D reconstruction and/or MIP imaging was also performed on a separate workstation. IV CONTRAST: with IV Contrast, patient injected with 90ml mL of Isovue 370. (None if empty) CT DLP: 808.7 mGycm, Automated exposure control for dose reduction was used. FINDINGS: PULMONARY ARTERIES: The pulmonary arteries and their major tributaries are patent. I do not see tanmay dence for sizable filling defect to suggest pulmonary embolic process. LUNGS: The lungs are clear and free of infiltrate. No evidence for atelectasis. No pulmonary nodule or mass is detected. No pleural effusion. MEDIASTINUM: Thoracic aorta is of normal caliber. No evidence for mediastinal mass. No mediastinal lymph nodes greater than 1cm. HEART: Size within normal limits. No significant coronary artery calcifications. HILAR STRUCTURES: No evidence for mass. No hilar lymph nodes greater than 1 cm. UPPER ABDOMEN: No significant abnormality is seen. IMPRESSION: 1. No evidence for Pulmonary embolism at this time. Follow up recommendations for incidental pulmonary nodules, if there are any, are per [employer] or [employer]. [email or web address] [email or web address] ions- [facility], , 08/24/2024 2:50 PM
[2024-08-24 16:10] VITALS: BP 128/58; PULSE 77; RESP 17
== END 2024-08-24 18:48 | disposition home or self-care (01) ==
LOC: EC 12:09
DX: U07.1 COVID-19 (principal); Z87.891 Personal history of nicotine dependence; Z88.0 Allergy status to penicillin; Z88.1 Allergy status to other antibiotic agents; Z88.2 Allergy status to sulfonamides
CPT/HCPCS: 36415; 93005; 85379; 83880; 80053; 83605; 83735; 85025; 85610; 85730; 71046; 93970; 71275; 99285; 96374; Q9967; J1938

== ENCOUNTER 2024-11-25 21:43 | Emergency (ER) | payer MEDICARE ==
--- NOTE | 2024-11-25 23:16 | ED ---
Headache HPI - General Source: RN notes reviewed, old records reviewed Mode of arrival: ambulatory Limitations: no limitations - History of Present Illness MD Complaint: other (Posterior occipital swelling) -: hour(s) Onset Description: gradual Location: left, occipital, neck Severity: moderate Severity scale (1-10): 7 Quality: aching Consistency: constant Improves With: nothing Worsens With: none Associated Symptoms: other (0) Other Symptoms: other (0) Treatments Prior to Arrival: other (0) <Milton Paul - Last Filed: 11/26/24 00:03> <Syeda Paige - Last Filed: 11/26/24 03:45> <Divya Gerardo - Last Filed: 11/28/24 01:30> - General Stated Complaint: Swelling in back of head Time Seen by Provider: 11/25/24 22:44 - History of Present Illness Initial Comments: This is a 74 male to the ER for evaluation of headache and posterior head swelling pain is worse when he moves his neck more moves when he turns his head he noted swelling today mostly left-sided and then behind the left ear. No change in hearing no ear pain no recent fevers. No other complaints (Milton Paul) - Related Data Home Medications Medication Instructions Recorded Confirmed allopurinoL [Zyloprim] 300 mg PO DAILY 01/02/16 11/27/24 Metoprolol Tartrate [Lopressor] 25 mg PO DAILY 01/26/17 11/27/24 Levothyroxine Sodium [Synthroid] 50 mcg PO DAILY 02/27/19 11/27/24 Multivitamins, Thera [Multivitamin 1 tab PO DAILY 02/27/19 11/27/24 (formulary)] Furosemide [Lasix] 20 mg PO DAILY 08/31/19 11/27/24 Aspirin [Adult Low Dose Aspirin EC] 81 mg PO DAILY 08/27/21 11/27/24 Fluticasone Propion/Salmeterol 1 puff INHALATION RT-BID 08/27/21 11/27/24 [Wixela 250-50 Inhub] Montelukast [Singulair] 10 mg PO HS 08/27/21 11/27/24 Omeprazole 20 mg PO DAILY 08/27/21 11/27/24 metFORMIN HCL [Glucophage] 500 mg PO BID 08/27/21 11/27/24 Isosorbide Mononitrate [Isosorbide 30 mg PO DAILY 08/31/21 11/27/24 Mononitrate ER] Ezetimibe [Zetia] 10 mg PO DAILY 03/21/23 11/27/24 Atorvastatin [Lipitor] 80 mg PO HS 08/19/24 11/27/24 Previous Rx's Medication Instructions Recorded Nitroglycerin Sl Tabs [Nitrostat] 0.4 mg SUBLINGUAL Q5M PRN #25 tab 08/31/21 Albuterol Inhaler [Ventolin Hfa 2 puff INHALATION RT-QID 30 Days 08/21/24 Inhaler] #1 each Albuterol Inhaler [Ventolin Hfa 2 puff INHALATION RT-QID PRN each 08/21/24 Inhaler] Ascorbic Acid [Vitamin C] 1,000 mg PO DAILY #60 tab 08/21/24 Budesonide-Formot 160-4.5 Mcg 2 puff INHALATION RT-BID 30 Days 08/21/24 [Symbicort 160-4.5 Mcg Inhaler] #1 each Cholecalciferol [Vitamin D3 (125 125 mcg PO DAILY #30 tab 08/21/24 Mcg = 5000 Iu)] Zinc Sulfate [Orazinc] 220 mg PO DAILY 15 Days #15 cap 08/21/24 predniSONE See Taper PO DIRECTED #30 tab 08/21/24 Benzonatate [Tessalon Perles] 100 mg PO TID PRN #30 capsule 08/24/24 Cephalexin [Keflex] 500 mg PO Q6HR 14 Days #56 cap 11/26/24 metroNIDAZOLE [Flagyl] 500 mg PO BID 14 Days #28 tab 11/26/24 Allergies Allergy/AdvReac Type Severity Reaction Status Date / Time Penicillins Allergy Unknown Verified 11/27/24 13:39 Childhood Sulfa (Sulfonamide Allergy Rash/Hives Verified 11/27/24 13:39 Antibiotics) sulfamethoxazole Allergy Rash/Hives Verified 11/27/24 13:39 [From Bactrim] trimethoprim [From Bactrim] Allergy Rash/Hives Verified 11/27/24 13:39 Review of Systems ROS Other: All systems not noted in ROS Statement are negative. <Milton Paul - Last Filed: 11/26/24 00:03> ROS Other: All systems not noted in ROS Statement are negative. <Syeda Paige - Last Filed: 11/26/24 03:45> ROS Other: All systems not noted in ROS Statement are negative. <AkinDivya - Last Filed: 11/28/24 01:30> ROS Statement: Those systems with pertinent positive or pertinent negative responses have been documented in the HPI. Past Medical History Past Medical History: Asthma, COPD, Diabetes Mellitus, Deep Vein Thrombosis (DVT), Hyperlipidemia, Hypertension, Pulmonary Embolus (PE) Additional Past Medical History / Comment(s): Hx. of arrhythmia; trigeminal neuralgia, SOB, non- alcoholic fatty liver disease History of Any Multi-Drug Resistant Organisms: None Reported Past Surgical History: Heart Catheterization With Stent, Orthopedic Surgery, Tonsillectomy Additional Past Surgical History / Comment(s): arthroscopy both knee. quad tendon surgery right knee, COLONOSCOPY, stent in RCA 2020 Past Anesthesia/Blood Transfusion Reactions: No Reported Reaction Date of Last Stent Placement:: 2020 Past Psychological History: No Psychological Hx Reported Smoking Status: Former smoker Past Alcohol Use History: None Reported Past Drug Use History: None Reported - Past Family History Father Family Medical History: Renal Disease Additional Family Medical History / Comment(s): Father from kidney failure, lung problems Mother Family Medical History: Cancer, Myocardial Infarction (MT) Additional Family Medical History / Comment(s): Mother and siblings had heart attacks, mom from Alzheimers complications Brother(s) Family Medical History: Deep Vein Thrombosis (DVT) <Milton Paul - Last Filed: 11/26/24 00:03> General Exam General appearance: alert, in no apparent distress Head exam: Present: atraumatic, normocephalic, normal inspection Eye exam: Present: normal appearance, PERRL, EOMI. Absent: scleral icterus, conjunctival injection, periorbital swelling ENT exam: Present: normal exam, mucous membranes moist Neck exam: Present: normal inspection. Absent: tenderness, meningismus, lymphadenopathy Respiratory exam: Present: normal lung sounds bilaterally. Absent: respiratory distress, wheezes, rales, rhonchi, stridor Cardiovascular Exam: Present: regular rate, normal rhythm, normal heart sounds. Absent: systolic murmur, diastolic murmur, rubs, gallop, clicks GI/Abdominal exam: Present: soft, normal bowel sounds. Absent: distended, tenderness, guarding, rebound, rigid Extremities exam: Present: normal inspection, full ROM, normal capillary refill. Absent: tenderness, pedal edema, joint swelling, calf tenderness Back exam: Present: normal inspection Neurological exam: Present: alert, oriented X3, CN II-XII intact Psychiatric exam: Present: normal affect, normal mood Skin exam: Present: warm, dry, intact, normal color. Absent: rash <Milton Paul - Last Filed: 11/26/24 00:03> Course <Milton Paul - Last Filed: 11/26/24 00:03> Vital Signs 11/25/24 11/26/24 11/26/24 23:12 01:58 03:31 Temperature 98 F 97.5 F L 97.5 F L Pulse Rate 69 65 62 Respiratory 18 16 16 Rate Blood Pressure 154/80 148/79 121/73 O2 Sat by Pulse 94 L 95 95 Oximetry - Reevaluation(s) Reevaluation #1: 11/26/24 00:05 Medical records reviewed (Milton Paul) Reevaluation #2: 11/26/24 00:05 Patient has unchanged in symptoms (Milton Paul) Reevaluation #3: 11/26/24 00:05 Patient informed of results and questions answered (Milton Paul) Reevaluation #4: Was pt. sent in by a medical professional or institution (, PA, MACHINE CLOTHING REPLACER, urgent care, hospital, or long-term...) When possible be specific @ -no Did you speak to anyone other than the patient for history (EMS, parent, family, police, friend...)? What history was obtained from this source @ -no Did you review nursing and triage notes (agree or disagree)? Why? @ -agree Are old charts reviewed (outside hosp., previous admission, EMS record, old EKG, old radiological studies, urgent care reports/EKG's, long-term records)? Report findings @ -yes Differential Diagnosis (chest pain, altered mental status, abdominal pain women, abdominal pain men, vaginal bleeding, weakness, fever, dyspnea, syncope, headache, dizziness, GI bleed, back pain, seizure, CVA, palpatations, mental health, musculoskeletal)? @ -prior EKG interpreted by me (3pts min.). @ -yes X-rays interpreted by me (1pt min.). @ -yes negative for acute disease CT interpreted by me (1pt min.). @ -no U/S interpreted by me (1pt. min.). @ -no What testing was considered but not performed or refused? (CT, X-rays, U/S, labs)? Why? @ -none What meds were considered but not given or refused? Why? @ -none Did you discuss the management of the patient with other professionals (professionals i.e. Dr., PA, MACHINE CLOTHING REPLACER, lab, RT, psych nurse, social work specialist, warehouse engineer, teacher, chief sustainability officer, case fitter)? Give summary @ -no Was smoking cessation discussed for >3mins.? @ -no Was critical care preformed (if so, how long)? @ -no Were there social determinants of health that impacted care today? How? (Homelessness, low income, unemployed, alcoholism, drug addiction, transportation, low edu. Level, literacy, decrease access to med. care, longterm, rehab)? @ -none Was there de-escalation of care discussed even if they declined (Discuss DNR or withdrawal of care, Hospice)? DNR status @ -no What co-morbidities impacted this encounter? (DM, HTN, Smoking, COPD, CAD, Cancer, CVA, ARF, Chemo, Hep., AIDS, mental health diagnosis, sleep apnea, morbid obesity)? @ -none Was patient admitted / discharged? Hospital course, mention meds given and route, prescriptions, significant lab abnormalities, going to OR and other pertinent info. @ - Undiagnosed new problem with uncertain prognosis? @ -no Drug Therapy requiring intensive monitoring for toxicity (Heparin, Nitro, Insulin, Cardizem)? @ -no Were any procedures done? @ -no Diagnosis/symptom? @ - Acute, or Chronic, or Acute on Chronic? @ -Acute Uncomplicated (without systemic symptoms) or Complicated (systemic symptoms)? @ -Complicated Side effects of treatment? @ -no Exacerbation, Progression, or Severe Exacerbation? @ -exacerbation Poses a threat to life or bodily function? How? (Chest pain, USA, MT, pneumonia, PE, COPD, DKA, ARF, appy, cholecystitis, CVA, Diverticulitis, Homicidal, Suicidal, threat to staff... and all critical care pts) @ -yes (Milton Paul) Medical Decision Making - Radiology Data Radiology results: report reviewed (CT brain C-spine negative for acute disease), image reviewed <Milton Paul - Last Filed: 11/26/24 00:03> <Syeda Paige - Last Filed: 11/26/24 03:45> - Medical Decision Making 74 male to the ER for evaluation patient was today for evaluation regards to swelling to the posterior occiput. No acute cause of symptoms found here in the ER patient will be discharged home to watch out symptoms progress (Milton Paul) Patient signed out to myself pending CT. CT resulted with signs of left parotitis. Patient was started on Keflex and Flagyl. Updated patient findings discussed signs symptoms warranting return to the ER such as failure of swelling to improve over the next 3 days, worsening pain, uncontrolled pain, redness, swelling under extends under his neck, difficulty breathing or swallowing fevers and should experiencing symptoms or any further concerns resolving his return to the ER immediate Discharged (Syeda Paige) Disposition Is patient prescribed a controlled substance at d/c from ED?: No <Milton Paul - Last Filed: 11/26/24 00:03> <Syeda Paige - Last Filed: 11/26/24 03:45> <Divya Gerardo - Last Filed: 11/28/24 01:30> Clinical Impression: Acute parotitis Disposition: HOME SELF-CARE Condition: Good Instructions (If sedation given, give patient instructions): Parotid Duct Obstruction (ED), Sialoadenitis (ED) Additional Instructions: Every disease is a spectrum and a small chance still exists that a serious condition could develop, for this reason, please monitor yourself closely for new, changing or worsening symptoms, symptoms that persist beyond/do not improve in 72 hours, redness or swelling that extends underneath your chin, difficulty in breathing or swallowing due to swelling, uncontrollable pain, fever, inability to tolerate/keep down fluids or your medications, inability to follow up with outpatient providers as instructed and should you experience these symptoms or should you have any further concerns for your wellbeing please return to the ED or call 911 immediately. Your pain can be treated with ibuprofen and acetaminophen. You can take up to 400-600 mg of ibuprofen (Advil, Motrin) 3 times daily (every 8 hours) but can also use lower doses if this relieves your pain. Some people prefer naproxen (Aleve, Naprosyn) which can be taken in doses of 500 mg up to twice a day. Do not take both of these medicines together, and do not combine either with ketorolac (Toradol), meloxicam (Mobic), or indomethacin (Tivorbex). Some people can develop stomach discomfort with higher doses of either ibuprofen or naproxen, if this develops decrease your dose or stop taking it. If you need to take this dose daily for more than a week, please schedule an appointment for re-evaluation with your PCP. Please take these medications with food. If you are taking a blood thinner (i.e. Eliquis, Xarelto, Plavix, Warfarin/Coumadin, etc), DO NOT TAKE NSAIDS. They will increase your risk for bleeding. You make take acetaminophen for pain and/or any other medications prescribed by your doctor. You can take up to 1000 mg of acetaminophen (Tylenol) every 6 hours. Be careful as this is included in some medicines like Nyquil, [place], Percocet, Vicodin, STANBACK, Goody's Powders, and Excedrin. Please take antibiotics as prescribed. you may use warm compresses to help with pain and swelling. Additionally sucking on sour candies may help your symptoms. PLEASE call your primary care physician as soon as possible to arrange / discuss plan for followup appointment. Appointment in the next 1-3 days is strongly encouraged if possible. PLEASE let us know here before you leave if there is anything further we can do to be of any assistance. Take care and feel Better! Prescriptions: metroNIDAZOLE [Flagyl] 500 mg PO BID 14 Days #28 tab Cephalexin [Keflex] 500 mg PO Q6HR 14 Days #56 cap Referrals: Tahmina Calvo MD [Primary Care Provider] - 1-2 days
--- NOTE | 2024-11-26 00:17 | CT ---
EXAM: CT Head Without Intravenous Contrast CLINICAL HISTORY: ITS.REASON CT Reason: pain TECHNIQUE: Axial computed tomography images of the head/brain without intravenous contrast. CTDI is 45.2 mGy and DLP is 1142 mGy-cm. This CT exam was performed using one or more of the following dose reduction techniques: automated exposure control, adjustment of the mA and/or kV according to patient size, and/or use of iterative reconstruction technique. COMPARISON: No relevant prior studies available. FINDINGS: No acute intracranial hemorrhage. No midline shift or mass effect. The territorial saleh-white matter differentiation is maintained throughout. Age-related cerebral volume loss. Periventricular and subcortical white matter hypoattenuation, consistent with chronic microangiopathy. The visualized orbits appear grossly unremarkable. The calvarium is intact. The visualized paranasal sinuses and mastoid air cells are grossly clear. IMPRESSION: No acute intracranial hemorrhage, midline shift, or mass effect. EXAM: CT Cervical Spine Without Intravenous Contrast CLINICAL HISTORY: ITS.REASON CT Reason: pain TECHNIQUE: Axial computed tomography images of the cervical spine without intravenous contrast. CTDI is 21.9 mGy and DLP is 617.3 mGy-cm. This CT exam was performed using one or more of the following dose reduction techniques: automated exposure control, adjustment of the mA and/or kV according to patient size, and/or use of iterative reconstruction technique. COMPARISON: No relevant prior studies available. FINDINGS: The vertebral body heights are maintained. The craniocervical junction is intact. The atlanto-dens interval is maintained. The dens is intact. There is no spondylolisthesis. Multilevel cervical spondylosis and degenerative disc disease. Straightening of the cervical lordosis. IMPRESSION: No acute fracture or subluxation of the cervical spine.
[2024-11-26] MEDS: HYDROcodone/APAP 10-325MG 1 EACH TAB PO ONE (01:54)
[2024-11-26 01:59] VITALS: RESP 16; TEMP 97.5
--- NOTE | 2024-11-26 02:15 | CT ---
EXAM: CT Temporal Bones Without Intravenous Contrast CLINICAL HISTORY: ITS.REASON CT Reason: pain TECHNIQUE: Axial computed tomography images of the temporal bones without intravenous contrast. CTDI is 29.8 mGy and DLP is 265 mGy-cm. This CT exam was performed using one or more of the following dose reduction techniques: automated exposure control, adjustment of the mA and/or kV according to patient size, and/or use of iterative reconstruction technique. COMPARISON: No relevant prior studies available. FINDINGS: Right ossicles and middle ear: Unremarkable. Right cochlea: Unremarkable. Right vestibule: Unremarkable. Right semicircular canals: Unremarkable. Right vestibular and cochlear aqueducts: Unremarkable. Right facial nerve canal: Unremarkable. Right internal auditory canal: Unremarkable. Right external auditory canal: Unremarkable. Right carotid canal: Unremarkable. Right jugular foramen: Unremarkable. Right mastoid air cells: Unremarkable. Right temporomandibular joint: Unremarkable. Left ossicles and middle ear: Unremarkable. Left cochlea: Unremarkable. Left vestibule: Unremarkable. Left semicircular canals: Unremarkable. Left vestibular and cochlear aqueducts: Unremarkable. Left facial nerve canal: Unremarkable. Left internal auditory canal: Unremarkable. Left external auditory canal: Unremarkable. Left carotid canal: Unremarkable. Left jugular foramen: Unremarkable. Left mastoid air cells: Unremarkable. Left temporomandibular joint: Unremarkable. Bones/joints: No acute fracture. Soft tissues: There is edema within the left parotid gland. IMPRESSION: No evidence of acute temporal bone pathology. Findings concerning for left parotitis, which may be of infectious or inflammatory etiologies.
[2024-11-26 03:32] VITALS: BP 121/73; PULSE 62
[2024-11-26] MEDS: metroNIDAZOLE 500 MG TAB PO STA (03:52)
[2024-11-26] MEDS: traMADol 50 MG STARTER PACK TAB BTL PO STA (03:53)
[2024-11-26] MEDS: CEPHALEXIN 500 MG CAP PO STA (03:53)
== END 2024-11-26 04:01 | disposition home or self-care (01) ==
LOC: EC 21:43
DX: K11.21 Acute sialoadenitis (principal); Z88.0 Allergy status to penicillin; Z88.1 Allergy status to other antibiotic agents; Z88.2 Allergy status to sulfonamides; Z88.8 Allergy status to other drugs, medicaments and biological substances; Z87.891 Personal history of nicotine dependence
CPT/HCPCS: 70450; 70480; 72125; 99284

== ENCOUNTER → 2024-11-27 | Outpatient (CLI) | payer MEDICARE ==
[2024-11-27 13:48] VITALS: BP 125/68; PULSE 66; RESP 16; TEMP 98.7
--- NOTE | 2024-11-27 14:22 | P.PAINPG ---
Objective - Vital Signs Vital signs: Intake & Output 11/26/24 11/27/24 11/27/24 18:59 06:59 18:59 Weight 127.006 kg PQRS Measure Charge Sheet Comment: HISTORY OF PRESENT ILLNESS: A 74 yr old male w daughter at side presents today w severe and chronic LBP x 2 yrs secondary to radiculopathy, spondylosis and facet arthropathy without myelopathy for evaluation s/p L paramedian YORDY L4-L5 #2. Pt states he experienced 50% pain relief x 1.5 years s/p procedure. Pt states pain level is provoked at 9 /10 in intensity, intermittent, localized in the mid to lower lumbar spine, dull in character w shooting pain to the L hip, buttock, knee. Pain is provoked by standing from a sitting position. Pain is alleviated by PT integrated w massage x 6 wks in Oct 2022, chiropractic treatments semi monthly w last visit in May 2022, medications, topical, repositioning and rest. Oswestry axial pain score at 20. Interventional procedures include YORDY L3-L4 x1, L paramedian YORDY L4-L5 (03/23) Medications include Aleve REVIEW OF ORGAN SYSTEMS: CONSTITUTIONAL: No fevers or chills. No recent weight loss. NEUROLOGICAL: + numbness and tingling along the distal extremities. No seizure disorders or headaches. MUSCULOSKELETAL: + pain PSYCHIATRIC: Denies current depression or suicidal thoughts. Physical Examinations : Constitutional : Cooperative , not in acute distress . Neurologic : Cranial nerve II to XII intact. No focal neurological deficits. Psychiatric : alert & oriented x 3. Matching mood & appropriate affect. Judgment & insight intact. Musculoskeletal : Cervical Spine Motor strength in the deltoid and biceps: Normal right side. Normal Left side Motor strength biceps and the wrist extensors: Normal right side . Normal left side Motor strength in the triceps muscle: Normal right side. Normal left side Deep tendon reflexes: Normal at the biceps. Normal at Brachioradialis. Normal at triceps Vertebral body tenderness to deep palpation over Cervical facet loading test: positive bilaterally Spurling test: positive bilaterally Neck distraction test: positive bilaterally Seth sign: positive bilaterally Lumbar spine Motor strength lower extremities ,thigh and legs 5/5 Right side , 5/5 Left side Deep tendon reflexes : Normal Knee Jerk. Normal Ankle Jerk Vertebral body tenderness over L4 Johnson Test positive Lumbar facet Loading Test: positive Right / positive Left Range of motion of the lumbar spine Flexion 30 degrees, extension 10 degrees Straight Leg Raise test: Left/ Right positive at 35 degrees Susan test: positive right / positive left. Severe tenderness over the Sacroiliac joint on the Right / Left sides Gaenslen test: positive bilaterally Seated flexion test: positive bilaterally. Sacral spine : Severe tenderness over the Sacroiliac joint: right side / left side Range of motion: Flexion of the lumbar spine <60 degrees Range of motion: Extension of the lumbar spine <20 degrees Gaenslen's Test positive Kevin's Test positive Susan test: positive right side / left side Thigh Thrust Test Sacral Thrust Test Imaging: MRI non contrast of the lumbar spine from 12/24/22 reviewed Assessment/ Plan : Lumbar radiculopathy Recommendation of L paramedian YORDY L4-L5 #1. Risks, benefits of procedure discussed and patient verbalized understanding. Protocol for discontinuation/ continuation of medications jewell procedure discussed. All questions answered. I have spent greater than 30 minutes on patient care today. Dr Glynn was available by phone for the evaluation of this patient. The time was used to review the medical records including relevant urine studies and Prescription history (MAPs), review of the available imaging, evaluation and examination of the patient, coordination of care with the medical staff and if applicable referring physicians, as well as creation of the medical record PQRS Narrative: Smoking Status Former smoker Hx Alcohol Use (MH) No Home Medications: Ambulatory Orders allopurinoL [Zyloprim] 300 mg PO DAILY 01/02/16 Metoprolol Tartrate [Lopressor] 25 mg PO DAILY 01/26/17 Levothyroxine Sodium [Synthroid] 50 mcg PO DAILY 02/27/19 Multivitamins, Thera [Multivitamin (formulary)] 1 tab PO DAILY 02/27/19 Furosemide [Lasix] 20 mg PO DAILY 08/31/19 Aspirin [Adult Low Dose Aspirin EC] 81 mg PO DAILY 08/27/21 Fluticasone Propion/Salmeterol [Wixela 250-50 Inhub] 1 puff INHALATION RT-BID 08/27/21 Montelukast [Singulair] 10 mg PO HS 08/27/21 Omeprazole 20 mg PO DAILY 08/27/21 metFORMIN HCL [Glucophage] 500 mg PO BID 08/27/21 Isosorbide Mononitrate [Isosorbide Mononitrate ER] 30 mg PO DAILY 08/31/21 Nitroglycerin Sl Tabs [Nitrostat] 0.4 mg SUBLINGUAL Q5M PRN #25 tab 08/31/21 Ezetimibe [Zetia] 10 mg PO DAILY 03/21/23 Atorvastatin [Lipitor] 80 mg PO HS 08/19/24 Albuterol Inhaler [Ventolin Hfa Inhaler] 2 puff INHALATION RT-QID 30 Days #1 each 08/21/24 Albuterol Inhaler [Ventolin Hfa Inhaler] 2 puff INHALATION RT-QID PRN each 08/21/24 Ascorbic Acid [Vitamin C] 1,000 mg PO DAILY #60 tab 08/21/24 Budesonide-Formot 160-4.5 Mcg [Symbicort 160-4.5 Mcg Inhaler] 2 puff INHALATION RT-BID 30 Days #1 each 08/21/24 Cholecalciferol [Vitamin D3 (125 Mcg = 5000 Iu)] 125 mcg PO DAILY #30 tab 08/21/24 Zinc Sulfate [Orazinc] 220 mg PO DAILY 15 Days #15 cap 08/21/24 predniSONE See Taper PO DIRECTED #30 tab 08/21/24 Benzonatate [Tessalon Perles] 100 mg PO TID PRN #30 capsule 08/24/24 Cephalexin [Keflex] 500 mg PO Q6HR 14 Days #56 cap 11/26/24 metroNIDAZOLE [Flagyl] 500 mg PO BID 14 Days #28 tab 11/26/24 Controlled Substance Measures - Controlled Substance Measures Is patient prescribed a controlled substance at discharge?: No
== END ==
LOC: PNWHC3 13:26
PROVIDERS: ATTEND Specialist
DX: M51.369 Other intervertebral disc degeneration, lumbar region without mention of lumbar back pain or lower extremity pain (principal); M47.26 Other spondylosis with radiculopathy, lumbar region; Z88.0 Allergy status to penicillin; Z88.2 Allergy status to sulfonamides; Z87.891 Personal history of nicotine dependence
CPT/HCPCS: 99211

== ENCOUNTER 2024-11-28 00:39 | Emergency (ER) | payer MEDICARE ==
[2024-11-28 00:47] VITALS: TEMP 97.8
[2024-11-28 01:45] LABS: Basophils # (A) 0.06 10*3/uL (0.00-0.10); Basophils % (A) 0.8 %; Eosinophils # (A) 0.59 10*3/uL (0.04-0.35); Eosinophils % (A) 7.6 %; HCT 42.8 % (39.6-50.0); HGB 14.4 g/dL (13.0-17.0); Lymphocytes # (A) 0.75 10*3/uL (0.90-5.00); Lymphocytes % (A) 9.6 %; MCH 33.3 pg (27.0-32.0); MCHC 33.6 g/dL (32.0-37.0); MCV 98.8 fL (80.0-97.0); Monocytes # (A) 0.81 10*3/uL (0.20-1.00); Monocytes % (A) 10.4 %; Neutrophils # (A) 5.58 10*3/uL (1.80-7.70); Neutrophils % (A) 71.3 %; Platelet Count 191 10*3/uL (140-440); RBC 4.33 10*6/uL (4.40-5.60); RDW 13.4 % (11.5-14.5); WBC 7.81 10*3/uL (4.50-10.00)
[2024-11-28] MEDS: KETOROLAC 15 MG/ML 1 ML VIAL IVP STA (01:48)
[2024-11-28] MEDS: HYDROmorphone 0.5 MG/0.5 ML SYRINGE IVP STA (01:50)
[2024-11-28 02:00] LABS: ALT 42 U/L (4-49); AST 60 U/L (17-59); African American GFR (CKD) >90 (>60 ml/min/1.73 sqM); Albumin 4.0 g/dL (3.5-5.0); Alkaline Phosphatase 132 U/L (38-126); Anion Gap 10 mmol/L; Blood Urea Nitrogen 28 mg/dL (9-20); Calcium 9.1 mg/dL (8.4-10.2); Carbon Dioxide 26 mmol/L (22-30); Chloride 103 mmol/L (98-107); Glucose 127 mg/dL (74-99); Non-African American GFR(CKD) 82 (>60 ml/min/1.73 sqM); Potassium 4.2 mmol/L (3.5-5.1); Sodium 139 mmol/L (137-145); Total Protein 7.0 g/dL (6.3-8.2)
--- NOTE | 2024-11-28 02:10 | ED ---
General Adult HPI - General Chief complaint: Neck Pain/Injury Stated complaint: Pain in Neck, Headache Time Seen by Provider: 11/28/24 01:10 Source: patient, RN notes reviewed, old records reviewed Mode of arrival: ambulatory Limitations: no limitations - History of Present Illness Initial comments: 74-year-old male presented the ER for evaluation of left-sided neck pain. Patient was evaluated on 11-25-2024 for similar complaint he was ultimately diag nosed with acute praotiditis. Patient was discharged home on Keflex and Flagyl along with tramadol starter pack. Patient reports throughout the day yesterday he was feeling fine until later in the evening he started to experiencing worsening pain and he believes swelling extending posteriorly to occipital lobe. He also reports pain with swallowing and increase in pain. He has taken [id number] naproxen and tramadol with minor relief of the symptoms. He denies any difficulty breathing, sore throat, throat swelling. Denies any fevers or chills. Patient is noting pain with range of motion of neck. He does admit to a headache as well. No paresthesias to bilateral upper extremities or known injuries to neck or head. Patient denies dizziness, lightheadedness, nausea, vomit, chest pain or shortness of breath. - Related Data Home Medications Medication Instructions Recorded Confirmed allopurinoL [Zyloprim] 300 mg PO DAILY 01/02/16 11/27/24 Metoprolol Tartrate [Lopressor] 25 mg PO DAILY 01/26/17 11/27/24 Levothyroxine Sodium [Synthroid] 50 mcg PO DAILY 02/27/19 11/27/24 Multivitamins, Thera [Multivitamin 1 tab PO DAILY 02/27/19 11/27/24 (formulary)] Furosemide [Lasix] 20 mg PO DAILY 08/31/19 11/27/24 Aspirin [Adult Low Dose Aspirin EC] 81 mg PO DAILY 08/27/21 11/27/24 Fluticasone Propion/Salmeterol 1 puff INHALATION RT-BID 08/27/21 11/27/24 [Wixela 250-50 Inhub] Montelukast [Singulair] 10 mg PO HS 08/27/21 11/27/24 Omeprazole 20 mg PO DAILY 08/27/21 11/27/24 metFORMIN HCL [Glucophage] 500 mg PO BID 08/27/21 11/27/24 Isosorbide Mononitrate [Isosorbide 30 mg PO DAILY 08/31/21 11/27/24 Mononitrate ER] Ezetimibe [Zetia] 10 mg PO DAILY 03/21/23 11/27/24 Atorvastatin [Lipitor] 80 mg PO HS 08/19/24 11/27/24 Previous Rx's Medication Instructions Recorded Nitroglycerin Sl Tabs [Nitrostat] 0.4 mg SUBLINGUAL Q5M PRN #25 tab 08/31/21 Albuterol Inhaler [Ventolin Hfa 2 puff INHALATION RT-QID 30 Days 08/21/24 Inhaler] #1 each Albuterol Inhaler [Ventolin Hfa 2 puff INHALATION RT-QID PRN each 08/21/24 Inhaler] Ascorbic Acid [Vitamin C] 1,000 mg PO DAILY #60 tab 08/21/24 Budesonide-Formot 160-4.5 Mcg 2 puff INHALATION RT-BID 30 Days 08/21/24 [Symbicort 160-4.5 Mcg Inhaler] #1 each Cholecalciferol [Vitamin D3 (125 125 mcg PO DAILY #30 tab 08/21/24 Mcg = 5000 Iu)] Zinc Sulfate [Orazinc] 220 mg PO DAILY 15 Days #15 cap 08/21/24 predniSONE See Taper PO DIRECTED #30 tab 08/21/24 Benzonatate [Tessalon Perles] 100 mg PO TID PRN #30 capsule 08/24/24 Cephalexin [Keflex] 500 mg PO Q6HR 14 Days #56 cap 11/26/24 metroNIDAZOLE [Flagyl] 500 mg PO BID 14 Days #28 tab 11/26/24 Clindamycin [Cleocin] 450 mg PO TID 10 Days #90 capsule 11/28/24 Allergies Allergy/AdvReac Type Severity Reaction Status Date / Time Penicillins Allergy Unknown Verified 11/27/24 13:39 Childhood Sulfa (Sulfonamide Allergy Rash/Hives Verified 11/27/24 13:39 Antibiotics) sulfamethoxazole Allergy Rash/Hives Verified 11/27/24 13:39 [From Bactrim] trimethoprim [From Bactrim] Allergy Rash/Hives Verified 11/27/24 13:39 Review of Systems ROS Statement: Those systems with pertinent positive or pertinent negative responses have been documented in the HPI. ROS Other: All systems not noted in ROS Statement are negative. Past Medical History Past Medical History: Asthma, COPD, Diabetes Mellitus, Deep Vein Thrombosis (DVT), Hyperlipidemia, Hypertension, Pulmonary Embolus (PE) Additional Past Medical History / Comment(s): Hx. of arrhythmia; trigeminal neuralgia, SOB, non- alcoholic fatty liver disease History of Any Multi-Drug Resistant Organisms: None Reported Past Surgical History: Heart Catheterization With Stent, Orthopedic Surgery, Tonsillectomy Additional Past Surgical History / Comment(s): arthroscopy both knee. quad tendon surgery right knee, COLONOSCOPY, stent in RCA 2020 Past Anesthesia/Blood Transfusion Reactions: No Reported Reaction Date of Last Stent Placement:: 2020 Past Psychological History: No Psychological Hx Reported Smoking Status: Former smoker Past Alcohol Use History: None Reported Past Drug Use History: None Reported - Past Family History Father Family Medical History: Renal Disease Additional Family Medical History / Comment(s): Father from kidney failure, lung problems Mother Family Medical History: Cancer, Myocardial Infarction (NM) Additional Family Medical History / Comment(s): Mother and siblings had heart attacks, mom from Alzheimers complications Brother(s) Family Medical History: Deep Vein Thrombosis (DVT) General Exam Limitations: no limitations General appearance: alert, in no apparent distress Eye exam: Present: normal appearance, PERRL, EOMI. Absent: scleral icterus, conjunctival injection, periorbital swelling Pupils: Present: normal accommodation ENT exam: Present: normal exam, normal oropharynx, mucous membranes moist Neck exam: Present: other (Limited active ROM with turning neck left to right. Mild edema left cheek. No overlying erythema or wounds. No induration or edema to floor of mouth or neck this is supple) Respiratory exam: Present: normal lung sounds bilaterally. Absent: respiratory distress, wheezes, rales, rhonchi, stridor Cardiovascular Exam: Present: regular rate, normal rhythm, normal heart sounds. Absent: systolic murmur, diastolic murmur, rubs, gallop, clicks Neurological exam: Present: alert, oriented X3, CN II-XII intact Skin exam: Present: warm, dry, intact, normal color. Absent: rash Course Vital Signs 11/28/24 11/28/24 11/28/24 00:43 03:11 04:22 Temperature 97.8 F Pulse Rate 73 69 71 Respiratory 18 16 16 Rate Blood Pressure 157/82 133/64 156/80 O2 Sat by Pulse 95 99 98 Oximetry Medical Decision Making - Medical Decision Making Was pt. sent in by a medical professional or institution (TIFFANY Gandhi, [facility], urgent care, hospital, or correction...) When possible be specific @ -No Did you speak to anyone other than the patient for history (EMS, parent, family, police, friend...)? What history was obtained from this source @ -No Did you review nursing and triage notes (agree or disagree)? Why? @ -I reviewed and agree with nursing and triage notes Were old charts reviewed (outside hosp., previous admission, EMS record, old EKG, old radiological studies, urgent care reports/EKG's, correction records)? Report findings @ -Yes I reviewed ER visit from 11-25-2024. Patient evaluated for headache and left-sided neck discomfort. Patient ultimately diagnosed with acute parotiditis and discharged on Keflex and Flagyl. Differential Diagnosis (chest pain, altered mental status, abdominal pain women, abdominal pain men, vaginal bleeding, weakness, fever, dyspnea, syncope, headache, dizziness, GI bleed, back pain, seizure, CVA, palpatations, mental health, musculoskeletal)? @ -Strep pharyngitis, parotiditis, meningitis, sepsis, abscess, musculoskeletal pain... This list is not meant to be all-inclusive EKG interpreted by me (3pts min.). @ -None done X-rays interpreted by me (1pt min.). @ -None done CT interpreted by me (1pt min.). @ -CT soft tissue neck showing findings consistent with left parotitis. No evidence of sialolithiasis. Spinal Stenosis at C6-C7. U/S interpreted by me (1pt. min.). @ -None done What testing was considered but not performed or refused? (CT, X-rays, U/S, labs)? Why? @ -None What meds were considered but not given or refused? Why? @ -None Did you discuss the management of the patient with other professionals (professionals i.e. TIFFANY Gandhi, [facility], lab, RT, psych nurse, social work msw, lease picker, t eacher, commercial loan collection officer, rn field case manager)? Give summary @ -No Was smoking cessation discussed for >3mins.? @ -No Was critical care preformed (if so, how long)? @ -No Were there social determinants of health that impacted care today? How? (Homelessness, low income, unemployed, alcoholism, drug addiction, transportation, low edu. Level, literacy, decrease access to med. care, usp, rehab)? @ -No Was there de-escalation of care discussed even if they declined (Discuss DNR or withdrawal of care, Hospice)? DNR status @ -No What co-morbidities impacted this encounter? (DM, HTN, Smoking, COPD, CAD, Cancer, CVA, ARF, Chemo, Hep., AIDS, mental health diagnosis, sleep apnea, morbid obesity)? @ -Diabetes mellitus, Asthma, COPD, hyperlipidemia, hypertension Was patient admitted / discharged? Hospital course, mention meds given and route, prescriptions, significant lab abnormalities, going to OR and other pertinent info. @ -74-year-old male presented to ER for evaluation of left-sided neck pain. Patient seen and evaluated 2 days prior and diagnosed with acute parotitis d ischarged on Keflex and Flagyl. Upon arrival vital signs stable. Upon examination patient resting comfortably in exam room no signs of acute distress. Patient tolerating and supporting own airway. There is mild edema to left parotid gland extending posteriorly. No overlying skin changes. No edema to lip tongue or oropharynx. Floor mouth and neck are supple with no induration. Given worsening of symptoms laboratory studies and repeat CT scan will be obtained along with symptomatic treatment. Laboratory studies obtained marked for WBC 7.8. Lactic 1.6. Viral swab negative. Strep negative. CT soft tissue neck showing findings consistent with left parotitis, no evidence of si alolithiasis. Upon reevaluation, patient reporting improvement of discomfort. He is educated on today's findings. Patient will be started on clindamycin and advised to stop taking Keflex and Flagyl. First dose provided in the emergency department. Patient is comfortable discharge at this time. tylenol 3 starter pack provided for pain outpatient. Conservative treatment options discussed. Return parameters discussed. Patient discharged in stable condition advised follow-up with PCP. Patient verbally expressed understanding and agreement with care plan. Case discussed with ED attending Dr. Bartholomew Undiagnosed new problem with uncertain prognosis? @ -No Drug Therapy requiring intensive monitoring for toxicity (Heparin, Nitro, Insulin, Cardizem)? @ -No Were any procedures done? @ -No Diagnosis/symptom? @ -Acute parotitis Acute, or Chronic, or Acute on Chronic? @ -Acute Uncomplicated (without systemic symptoms) or Complicated (systemic symptoms)? @ -Uncomplicated Side effects of treatment? @ -No Exacerbation, Progression, or Severe Exacerbation? @ -No Poses a threat to life or bodily function? How? (Chest pain, USA, NM, pneumonia, PE, COPD, DKA, ARF, appy, cholecystitis, CVA, Diverticulitis, Homicidal, Suicidal, threat to staff... and all critical care pts) @ -No - Lab Data Result diagrams: 11/28/24 01:29 11/28/24 01:29 Lab Results 11/28/24 11/28/24 11/28/24 Range/Units 01:23 01:23 01:29 WBC 7.81 (4.50-10.00) 10*3/uL RBC 4.33 L (4.40-5.60) 10*6/uL Hgb 14.4 (13.0-17.0) g/dL Hct 42.8 (39.6-50.0) % MCV 98.8 H (80.0-97.0) fL MCH 33.3 H (27.0-32.0) pg MCHC 33.6 (32.0-37.0) g/dL Plt Count 191 (140-440) 10*3/uL MPV 10.7 (9.5-12.2) fL Immature Gran % (Auto) 0.3 % Neutrophils % 71.3 % Lymphocytes % 9.6 % Monocytes % 10.4 % Eosinophils % 7.6 % Basophils % 0.8 % Immature Gran # 0.02 (0.00-0.04) 10*3/uL Neutrophils # 5.58 (1.80-7.70) 10*3/uL Lymphocytes # 0.75 L (0.90-5.00) 10*3/uL Monocytes # 0.81 (0.20-1.00) 10*3/uL Eosinophils # 0.59 H (0.04-0.35) 10*3/uL Basophils # 0.06 (0.00-0.10) 10*3/uL Sodium (137-145) mmol/L Potassium (3.5-5.1) mmol/L Chloride (98-107) mmol/L Carbon Dioxide (22-30) mmol/L Anion Gap mmol/L BUN (9-20) mg/dL Creatinine (0.66-1.25) mg/dL Est GFR (CKD-EPI)AfAm (>60 ml/min/1.73 sqM) Est GFR (CKD-EPI)NonAf (>60 ml/min/1.73 sqM) Glucose (74-99) mg/dL Plasma Lactic Acid Edgardo (0.7-2.0) mmol/L Calcium (8.4-10.2) mg/dL Total Bilirubin (0.2-1.3) mg/dL AST (17-59) U/L ALT (4-49) U/L Alkaline Phosphatase (38-126) U/L Total Protein (6.3-8.2) g/dL Albumin (3.5-5.0) g/dL Influenza Type A (PCR) Not Detected (Not Detectd) Influenza Type B (PCR) Not Detected (Not Detectd) RSV (PCR) Not Detected (Not Detectd) SARS-CoV-2 (PCR) Not Detected (Not Detectd) Group A Strep (PCR) NOT DETECTED (Not Detectd) 11/28/24 11/28/24 Range/Units 01:29 01:30 WBC (4.50-10.00) 10*3/uL RBC (4.40-5.60) 10*6/uL Hgb (13.0-17.0) g/dL Hct (39.6-50.0) % MCV (80.0-97.0) fL MCH (27.0-32.0) pg MCHC (32.0-37.0) g/dL Plt Count (140-440) 10*3/uL MPV (9.5-12.2) fL Immature Gran % (Auto) % Neutrophils % % Lymphocytes % % Monocytes % % Eosinophils % % Basophils % % Immature Gran # (0.00-0.04) 10*3/uL Neutrophils # (1.80-7.70) 10*3/uL Lymphocytes # (0.90-5.00) 10*3/uL Monocytes # (0.20-1.00) 10*3/uL Eosinophils # (0.04-0.35) 10*3/uL Basophils # (0.00-0.10) 10*3/uL Sodium 139 (137-145) mmol/L Potassium 4.2 (3.5-5.1) mmol/L Chloride 103 (98-107) mmol/L Carbon Dioxide 26 (22-30) mmol/L Anion Gap 10 mmol/L BUN 28 H (9-20) mg/dL Creatinine 0.91 (0.66-1.25) mg/dL Est GFR (CKD-EPI)AfAm >90 (>60 ml/min/1.73 sqM) Est GFR (CKD-EPI)NonAf 82 (>60 ml/min/1.73 sqM) Glucose 127 H (74-99) mg/dL Plasma Lactic Acid Edgardo 1.6 (0.7-2.0) mmol/L Calcium 9.1 (8.4-10.2) mg/dL Total Bilirubin 0.9 (0.2-1.3) mg/dL AST 60 H (17-59) U/L ALT 42 (4-49) U/L Alkaline Phosphatase 132 H (38-126) U/L Total Protein 7.0 (6.3-8.2) g/dL Albumin 4.0 (3.5-5.0) g/dL Influenza Type A (PCR) (Not Detectd) Influenza Type B (PCR) (Not Detectd) RSV (PCR) (Not Detectd) SARS-CoV-2 (PCR) (Not Detectd) Group A Strep (PCR) (Not Detectd) - Radiology Data Radiology results: report reviewed, image reviewed Disposition Clinical Impression: Acute parotitis Disposition: HOME SELF-CARE Condition: Stable Additional Instructions: Stop taking Keflex and Flagyl and begin taking clindamycin. Follow-up closely with PCP. Return to the ER for any new or worsening concerns. Prescriptions: Clindamycin [Cleocin] 450 mg PO TID 10 Days #90 capsule Is patient prescribed a controlled substance at d/c from ED?: No Referrals: Tahmina Calvo MD [Primary Care Provider] - 1-2 days Time of Disposition: 04:09
[2024-11-28 02:22] LABS: RSV Not Detected (Not Detectd)
[2024-11-28 03:12] VITALS: RESP 16
--- NOTE | 2024-11-28 03:59 | CT ---
EXAM: CT Neck With Intravenous Contrast CLINICAL HISTORY: ITS.REASON CT Reason: left paroditis worsening pain TECHNIQUE: Axial computed tomography images of the neck with intravenous contrast. CTDI is 12 mGy and DLP is 399.2 mGy-cm. This CT exam was performed using one or more of the following dose reduction techniques: automated exposure control, adjustment of the mA and/or kV according to patient size, and/or use of iterative reconstruction technique. COMPARISON: Prior CT scan of the temporal bones from November 17, 2024.. FINDINGS: Nasal cavity/septum: Unremarkable. Nasopharynx: Unremarkable. Oropharynx: Unremarkable. No significant tonsillar enlargement. No peritonsillar abscess. Hypopharynx: Unremarkable. Larynx: Unremarkable. Normal epiglottis. Trachea: Unremarkable. Retropharyngeal space: Unremarkable. Submandibular/parotid glands: The left parotid gland is enlarged and edematous. Thyroid: Unremarkable. No enlarged or calcified nodules. Bones/joints: No acute fracture. 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 Soft tissues: Unremarkable. Vasculature: No acute findings. Lymph nodes: Unremarkable. No lymphadenopathy. Sinuses: Unremarkable as visualized. No acute sinusitis. Lung apices: Unremarkable as visualized. IMPRESSION: Left parotitis, which may be of infectious or inflammatory etiologies. No evidence of sialolithiasis. Critical spinal canal stenosis at C6-7. Recommend MRI of the cervical spine to evaluate for myelopathy.
[2024-11-28] MEDS: CLINDAMYCIN 150 MG CAP PO STA (04:18)
[2024-11-28] MEDS: ACET/COD 300 MG/30 MG STARTER PACK TAB BTL PO STA (04:19)
[2024-11-28 04:25] VITALS: BP 156/80; PULSE 71
== END 2024-11-28 04:28 | disposition home or self-care (01) ==
LOC: EC 00:39
DX: K11.21 Acute sialoadenitis (principal); M48.02 Spinal stenosis, cervical region; I10 Essential (primary) hypertension; E11.9 Type 2 diabetes mellitus without complications; E78.5 Hyperlipidemia, unspecified; J44.89 Other specified chronic obstructive pulmonary disease; Z79.84 Long term (current) use of oral hypoglycemic drugs; Z87.891 Personal history of nicotine dependence; Z88.0 Allergy status to penicillin; Z88.1 Allergy status to other antibiotic agents; Z88.2 Allergy status to sulfonamides; Z11.52 Encounter for screening for COVID-19
CPT/HCPCS: 36415; 87651; 80053; 83605; 85025; 87636; 70491; 99284; 96374; 96375; J1885; J1171